=== PATIENT | female | born 1950 | race Two or more races ===

== ENCOUNTER 2024-10-21 08:00 | Day surgery (SDC) | payer MEDICARE, SELFPAY ==
[2024-10-18 13:11] VITALS: BMI 41.8
[2024-10-21] VITALS (16 sets, daily range): BP systolic 150–200; BP diastolic 65–94; PULSE 78–93; RESP 12–18; TEMP 36.1–36.6; O2SAT 96–99; BMI 39.0
[2024-10-21] MEDS: MIDAZOLAM INJ 1 MG/ML VIAL 2 ML (ASD USE ONLY) 2 MG IV (11:45)
[2024-10-21] MEDS: fentaNYL CIT INJ 50 mCg/ML AMP 2ML (ASD USE ONLY) IV (11:45)
[2024-10-21] MEDS: Vancomycin Inj 1,000 MG in SODIUM CHLORIDE 0.9% 250 ML 250 ML 150 MG IV (11:45)
[2024-10-21] MEDS: DiphenhydrAMINE INJ 50 MG/ML VIAL 25 MG IV (11:46)
[2024-10-21] MEDS: SODIUM CHLORIDE 0.9% 500 ML 500 ML 20 ML IV (11:53)
== END 2024-10-21 12:49 | disposition home or self-care (01) ==
PROVIDERS: PCP Specialist; Referring Provider Specialist; Visit Provider Specialist
PROC: 0DBE8ZX Excision of Large Intestine, Via Natural or Artificial Opening Endoscopic, Diagnostic (ICD-10-PCS; CPT 45380; principal; 2024-10-21 09:30)
PROC: (CPT 43239; 2024-10-21 09:30)
DX: K64.9 Unspecified hemorrhoids (principal); K57.31 Diverticulosis of large intestine without perforation or abscess with bleeding
CPT/HCPCS: 45378; A4649; J1200; J2250; J3010; J3371; J7040; J7050

== ENCOUNTER 2024-11-30 02:30 | Inpatient (IN) | payer MEDICARE, SELFPAY ==
[2024-11-30] VITALS (14 sets, daily range): BP systolic 133–196; BP diastolic 60–85; PULSE 75–102; RESP 11–96; TEMP 36.4–36.9; O2SAT 95–99; BMI 41.0; BMI 37.5
--- NOTE | 2024-11-30 02:42 | PD.EDABDPN ---
ED Abdominal Pain RME/HPI General Chief Complaint: Abdominal Pain Stated complaint: GI BLEED Time seen by provider: 11/30/24 02:44 Arrival date/time: 11/30/24 02:30 RME / HPI RME / HPI narrative: Dr. Johnston?s Main ED Evaluation: 74yo female with a history of DM, HLD, cirrhosis, CAD s/p stent placement CRISTINA from [facility] presents to the ED after being transferred here for a higher [id number]. Patient endorses she was having N/V and dizziness. She reports she started having dark stools this morning. Denies any abdominal pain. Earlier tonight, I received a call from Dr. Ndiaye stating that this is his patient and is wanting to do an endoscopy in the morning. No other complaints reported. Related Data Home Medications ?Medication ?Instructions ?Recorded ?Confirmed aspirin 81 mg tablet,delayed 81 mg PO QDAY 10/21/24 10/21/24 release furosemide 20 mg tablet (Lasix) 20 mg PO QAM 10/21/24 10/21/24 insulin glargine 100 unit/mL (3 65 unit subcut HS 10/21/24 10/21/24 mL) subcutaneous pen (Lantus Solostar U-100 Insulin) isosorbide mononitrate 30 mg 30 mg PO QDAY 10/21/24 10/21/24 tablet,extended release 24 hr losartan 50 mg tablet 50 mg PO QDAY 10/21/24 10/21/24 metformin 500 mg tablet 500 mg PO BID 10/21/24 10/21/24 metoclopramide HCl 5 mg tablet 5 mg PO HS 10/21/24 10/21/24 multivitamin (Daily Multi-Vitamin 1 tab PO QAM 10/21/24 10/21/24 tablet) omeprazole 40 mg capsule,delayed 40 mg PO QDAY 10/21/24 10/21/24 release potassium 20 mg chewable tablet 10 mg PO QDAY 10/21/24 10/21/24 simvastatin 40 mg tablet 40 mg PO HS 10/21/24 10/21/24 Allergies Allergy/AdvReac Type Severity Reaction Status Date / Time amoxicillin Allergy Mild Rash Verified 11/30/24 02:37 ibuprofen (From Advil) Allergy Mild Rash Verified 11/30/24 02:37 naproxen (From Aleve) Allergy Mild Rash Verified 11/30/24 02:37 Penicillins Allergy Mild Rash Verified 11/30/24 02:37 Sulfa (Sulfonamide Allergy Mild Rash Verified 11/30/24 02:37 Antibiotics) Review of Systems Review of Systems Systems Reviewed: All systems reviewed, normal except as documented Past Medical History Past Medical History NEUROLOGIC: Negative Neurological Disorders or Seizures CARDIAC: Positive Cardiac Disorders and Hypercholesterolemia; Negative Congestive Heart Failure RESPIRATORY: Negative Chronic Obstructive Pulmonary Disease (COPD) GASTROINTESTINAL: Positive Gastrointestinal Disorders and Cirrhosis (vs fatty liver) GENITOURINARY: Negative Genitourinary Disorders or Renal Disease MUSCULOSKELETAL: Negative Musculoskeletal Disorders ENDOCRINE: Positive Endocrine Disorders and Diabetes Mellitus Type 2; Negative Diabetes Mellitus Type 1 HEMATOLOGIC: Positive Blood Disorders and Anemia OTHER HISTORY: Negative Blood Transfusions, Blood Transfusion Reaction, Anesthesia Reactions or Cancer Surgical History SURGICAL: Positive Valve Replacement (tissue), Coronary Stent, Ear Surgery and Eye Surgery Social History SMOKING STATUS: Never smoker ED Exam Narrative Physical exam: GENERAL APPEARANCE: alert and oriented x 4, well-developed, well-nourished, no acute distress VITALS: All vitals were reviewed and the pulse ox is % on room air, which is normal according to my interpretation. HEENT: Normocephalic, atraumatic; pupils equal, round, reactive to light; EOMI; mucous membranes pink, moist; oropharynx clear NECK: Supple LUNGS: CTABL; no wheezes, no rales, no rhonchi HEART: Regular rate, regular rhythm; normal S1, S2; no murmurs ABDOMEN: non distended; normal BS; soft, no tenderness, no guarding, no rebound; no masses, no organomegaly, no hernia BACK: no CVA tenderness EXTREMITIES: atraumatic; no edema NEUROLOGIC: awake; alert and oriented x4; cranial nerves II-XII grossly intact; no focal sensory or motor deficits PSYCHIATRIC: appropriate mood and affect SKIN: warm, dry, normal color; no rashes Course Quality Measures none Orders Category Date Time Status Mobile Paramedical Examiner STAT Care 11/30/24 02:44 Active Continuous Pulse Oximetry STAT Care 11/30/24 02:44 Completed EKG (ED ONLY) *Do not use* NOW Care 11/30/24 02:49 Completed Insert IV STAT Care 11/30/24 02:44 Active NPO STAT Care 11/30/24 02:48 Active Orthostatic Vitals NOW Care 11/30/24 02:48 Active EKG (ED Only) Stat Exams 11/30/24 02:49 Draft Ammonia Stat Lab 11/30/24 03:09 Completed Arterial Blood Gas Stat Lab 11/30/24 05:29 Completed CBC Stat Lab 11/30/24 03:09 Completed Comprehensive Metabolic Panel Stat Lab 11/30/24 03:09 Completed Magnesium Stat Lab 11/30/24 03:09 Completed Partial Thromboplastin Time Stat Lab 11/30/24 03:09 Completed Prothrombin Time with INR Stat Lab 11/30/24 03:09 Completed Troponin I Stat Lab 11/30/24 03:09 Completed Pantoprazole/Ns 80Mg IV Premix [Protonix/NS 80mg IV Med 11/30/24 02:45 Discontinued Premix] 80 mg in 100 ml IV X1 Sodium Chloride 0.9% [Ns] 100 ml Med 11/30/24 02:44 Active Octreotide Acet Inj [SandoSTATIN Inj] 1,000 mcg IV 50 mcg/hr Vital Signs Vital signs: Vital Signs Temperature 98.4 F 11/30/24 02:37 Pulse Rate 101 H 11/30/24 02:37 Respiratory Rate 16 11/30/24 02:37 Blood Pressure 174/85 H 11/30/24 02:37 Pulse Oximetry (%) 98 11/30/24 02:37 Oxygen Delivery Method Room Air 11/30/24 02:37 Abdominal Pain MDM MDM Narrative MDM Narrative:: Scribe Attestation: 11/30/24 - Emilia Thrasher am scribing for and in the presence of Dr. Johnston. At 2340, I received a call from Dr. Ndiaye, our GI, who states he accepted the patient for transfer and will be pending endoscopy in the morning. States the patient has a history of TVD and cardiac stents on Plavix. Reports the patient is having coffee-ground emesis and black stools. Requests starting Protonix and Octreotide drips when the patient arrives to our facility. Review of the patient's medical records from today at [facility] show: HnH of 9.6/28.5, Platelets of 116, Bicarb of 19, Anion Gap of 18, elevated BUN/creatinine ratio. CT abdomen pelvis showed cirrhotic liver, portal venous hypertension, and varices. EKG done at 2003, NSR, rate of 87, left axis deviation, ST depression in lead I and avL, Q waves in V1-V3, no acute ischemia according to my interpretation. Patient data External records reviewed:: [facility] previous records (Per chart review, patient has no previous ED visits or admissions to this facility.) and Other (specify) (Reviewed records that were sent over from [facility].) Clinical information provided by:: patient Social determinants that could affect healthcare access:: none Patient has the following chronic illnesses:: DM, CAD s/p stent placement, HLD, cirrhosis How is presenting disease/condition affected by chronic disease/condition?: caused by Evaluation data The following diagnostics were reviewed and interpreted by me:: lab results and EKG tracing(s) Lab and/or radiology exams considered but not ordered:: none Interpretation Summary: WBC count is normal, HnH is 8.6/26.3, Platelets are 100, ABG is normal, AST and Alkaline Phosphatase are elevated, Ammonia is 81, Troponin is normal, according to my interpretation. EKG done at 0304, NSR, rate of 80, left axis deviation, no ectopy, Q waves in V1 and V2, inverted T-wave in avL, no STEMI, according to my interpretation. Medications / Prescriptions Medications or Prescriptions considered but not ordered:: none Medication administrations:: Medication Administration History Octreotide Acetate 1,000 mcg/ (Sodium Chloride) 102 mls @ 5.1 mls/hr IV .Q20H ONE; Protocol Stop: 11/30/24 22:43 Last Admin: 11/30/24 03:45 Dose: 50 mcg/hr, 5.1 mls/hr Documented By: CONSTANTINO Discontinued Medications Pantoprazole Sodium (Protonix/Ns 80mg Iv Premix) 80 mg in 100 mls @ 400 mls/hr IV X1 ONE Stop: 11/30/24 02:59 Last Infusion: 11/30/24 04:00 Dose: Infused Documented By: Admin: 11/30/24 03:45 Dose: 400 mls/hr Documented By: CONSTANTINO see above Consultations Consultation(s) initiated? (list below): No Diagnosis Differential diagnosis abdominal pain: other (upper GI bleed, lower GI bleed, melena, anemia, dehydration, electrolyte abnormality) Most likely diagnosis given after review of the tests above:: see clinical impression below Admission Indicated Admission indicated?: not indicated Admission Request Was there a request for admission?: No Disposition Plan Disposition Plan: other (specify) (Signed out to Dr. Carballo at [address] Ndiaye.) Discharge Plan Prescriptions/Referrals Prescriptions/Med Rec: No Action metformin 500 mg tablet 500 mg PO BID Patient Comments: TAKE 1 TABLET BY MOUTH TWICE A DAY metoclopramide HCl 5 mg tablet 5 mg PO HS Patient Comments: TAKE 1 TABLET BY MOUTH BEFORE MEALS AND AT BEDTIME insulin glargine [Lantus Solostar U-100 Insulin] 100 unit/mL (3 mL) insulin pen 65 unit SUBCUT HS Patient Comments: INJECT 65 UNITS SUBCUTANEOUSLY IN THE MORNING AND 55 UNITS SUBCUTANEOUSLY AT BEDTIME simvastatin 40 mg tablet 40 mg PO HS Patient Comments: TAKE 1 TABLET BY MOUTH EVERY DAY omeprazole 40 mg capsule,delayed release(DR/EC) 40 mg PO QDAY Patient Comments: TAKE 1 CAPSULE BY MOUTH EVERY DAY isosorbide mononitrate 30 mg tablet extended release 24 hr 30 mg PO QDAY multivitamin [Daily Multi-Vitamin] Tablet 1 tab PO QAM furosemide [Lasix] 20 mg tablet 20 mg PO QAM potassium 20 mg tablet,chewable 10 mg PO QDAY losartan 50 mg tablet 50 mg PO QDAY Patient Comments: TAKE 1 TABLET BY MOUTH EVERY DAY FOR 90 DAYS aspirin 81 mg tablet,delayed release (DR/EC) 81 mg PO QDAY Patient Comments: TAKE 1 TABLET BY MOUTH EVERY DAY FOR 90 DAYS Referrals: No Primary/Family,Physician [Primary Care Provider] - In 1 week Problem List Clinical Impression: GI bleed Patient/Caregiver Discharge Instructions Print Language: Kuwaiti
--- NOTE | 2024-11-30 02:49 | EKG_ITS ---
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
[2024-11-30 03:23] LABS: Basophils % (Auto) 0 % (0-2.5); Eosinophils % (Auto) 0 % (0-10); Hematocrit 26.3 % (36.0-46.0); Immature Granulocytes % (Auto) 0 % (0-0); Immature Granulocytes Auto 0.02 Thou/mm3 (0.00-0.00); Lymphocytes # (Auto) 0.9 Thou/mm3 (1.0-4.8); Lymphocytes % (Auto) 12 % (10-50); Mean Corpuscular HGB Conc 32.7 g/dl (31.0-37.0); Mean Corpuscular Hemoglobin 26.1 pg (25.0-35.0); Mean Corpuscular Volume 80 fL (80-100); Monocytes # (Auto) 0.9 Thou/mm3 (0.0-0.8); Monocytes % (Auto) 12 % (0-12); Neutrophils # (Auto) 5.6 Thou/mm3 (1.8-7.7); Neutrophils % (Auto) 75 % (37-80); Nucleated Red Blood Cell % 0 /100 WBC (0); Platelet Count 100 Thou/mm3 (140-440); RDW Standard Deviation 53.9 fL (36.4-46.3); White Blood Count 7.4 Thou/mm3 (3.6-11.0)
[2024-11-30 03:26] LABS: Hemoglobin 8.6 g/dL (12.0-16.0)
[2024-11-30 03:39] LABS: INR 1.2 (0.9-1.3); Partial Thromboplastin Time 25.1 Seconds (22.0-36.0); Prothrombin Time 13.3 Seconds (9.0-12.2)
[2024-11-30 03:44] LABS: Alanine Aminotransferase 33 U/L (10-49); Albumin, Serum 3.6 gm/dL (3.4-4.8); Albumin/Globulin Ratio 1.1 (1.2-2.2); Alkaline Phosphatase 128 U/L (46-116); Anion Gap 11 (7-16); Aspartate Amino Transferase 47 U/L (0-34); BUN/Creatinine Ratio 24 Ratio (12-20); Bilirubin,Total 0.7 mg/dL (0.3-1.2); Blood Urea Nitrogen 17 mg/dL (9-23); Calcium 8.8 mg/dL (8.3-10.6); Calcium (Corrected) 9.1 mg/dL (8.5-10.1); Carbon Dioxide 23.4 mMol/L (20.0-31.0); Chloride 108 mMol/L (98-107); Creatinine (Component) 0.7 mg/dL (0.6-1.3); Globulin 3.3 gm/dL (2.3-3.5); Glucose 91 mg/dL (74-106); Magnesium 1.6 mg/dL (1.6-2.6); Osmolality,Calculated 284 (275-295); Potassium 3.9 mMol/L (3.4-5.1); Sodium 142 mMol/L (136-145); Total Protein 6.9 gm/dL (5.7-8.2); Troponin I < 0.020 ng/mL (0.0-0.045); eGFR > 60 See Note
[2024-11-30] MEDS: PANTOPRAZOLE/NS 80MG IV PREMIX 80 MG/100 ML BAG 400 MG IV (03:45)
[2024-11-30] MEDS: OCTREOTIDE ACET INJ 1,000 MCG in SODIUM CHLORIDE 0.9% 100 ML 5.1 MCG IV ×2 (03:45→20:35)
[2024-11-30 03:53] LABS: Ammonia 81 uMol/L (11-32)
[2024-11-30 05:54] LABS: Base Excess -1 (-3-3); HCO3 23 mEq/L (20-26); Inspired Oxygen, FIO2 21 %; O2 Saturation 97 % (91-98); PCO2 34 mmHg (32.0-48.0); PO2 94 mmHg (83-108); pH, Arterial 7.43 (7.35-7.45)
[2024-11-30 05:56] LABS: Allen Test Performed/OK; Puncture Site Right Radial
--- NOTE | 2024-11-30 06:11 | PC.NURSE ---
assisted pt up to BR around 0500, otherwise pt has been asleep.
--- NOTE | 2024-11-30 06:19 | PD.EDADDENDU ---
Emergency Room Addendum Addendum Narrative: 0600: Care assumed from Dr. Johnston (emergency physician). Past medical, surgical, social and family history reviewed. Vitals and home medications reviewed. Results and treatment plan discussed. I will assume the care of the patient at this time and will follow the patient, pending evaluation by Dr. Ndiaye. 1004: Dr. Ndiaye (GI) made aware of the patient?s HPI, PMHx, lab and/or radiology results. Discussed treatment plan. Will consult an admission to the hospitalist. 1126: Spoke with Admission Resident working with Dr. Carrasquillo, made aware of the patient?s HPI, PMHx, lab and/or radiology results. Treatment plan was discussed. Will admit for further evaluation and management. Accepts patient for admission.
--- NOTE | 2024-11-30 13:08 | ESHP_ITS ---
<Statement entered by Jovany Salguero MD - 12/01/24 10:56> I discussed with and supervised the graphic design intern physician involved in the care of this patient. Patient assessment and plan was discussed with entire medicine team, including my attending. I agree with the assessment and plan as documented by graphic design intern doctor. Patient care was discussed with my attending physician Dr. Foreign Salguero, PGY-2 Documentation for date of: 11/30/24 HPI History of Present Illness Chief complaint: dark stool History of present illness: Nano Chong is 74 yr female with PMH of insulin-dependent type 2 diabetes, hyperlipidemia, cirrhosis, grade III esophageal varicies, CAD s/p stents who BIBA from [facility] presents to the ED after being transferred here for a higher [id number]. Per daughter at bedside, patient has been experiencing vomiting since past few days. Had about 2-3 episodes with no blood that occurred after meals. There has been no significant change in diet, endorses good appetite still, no diarrhea. She was started on Ozempic 3 weeks ago. Last dose was on Monday and has since then been held by the daughter. Daughter endorses approximately 2 bowel movements that were dark in color. She had undergone EGD and colonoscopy on October [address] Ndiaye. Findings consistent with hemorrhoids which were ligated. Patient had CT abdomen pelvis done at [facility]. Findings positive for cirrhotic liver, prominent spleen, portal venous HTN ith some vascular shunting/varicies, multiple small calcified gallstones. CT head was also negative. In ED, vitals stable, Hb 8.6, potassium 3.9, Cr 0.7, NH4 81. Dr. Ndiaye was consulted. Said to admit patient for EGD. She was given pantoprazole 80mg x1, octreotide 1g x1. Patient will be admitted for repeat EGD as follow up for GI bleed s/p banding. PMH: as above PSH: CAD stents FamHx: no cancers, father side positive for HTN and DM. Social: lives at home with daughter. No smoking, no drinking. Able to complete ADLs. Meds: Aspirin 81 mg daily, atorvastatin 20 mg daily, clopidogrel 75 mg daily, furosemide 20 mg daily, 65 units glargine at bedtime, 30 mg isosorbide daily, losartan 50 mg daily, metformin 500 twice daily, omeprazole 40 mg daily. Allergies: Amoxicillin, ibuprofen, naproxen, sulfa cause rash Review of Systems Constitutional Constitutional: Reports system reviewed and no additional complaints, except as documented Exam Vital Signs Temp Pulse Resp BP Pulse Ox O2 Del Method 98.0 F 83 16 146/60 H 97 Room Air 11/30/24 11:32 11/30/24 11:32 11/30/24 11:32 11/30/24 11:32 11/30/24 11:32 11/30/24 11:32 Narrative Exam General: Elderly female, obese, No acute distress, cooperative, lethargic HEENT: NCAT, No JVD noted. Mucosa moist. Pupils are equal and reactive to light bilaterally Cardiovascular: Normal S1 and S2. Regular rate and rhythm. Respiratory: Lungs are clear to auscultation bilaterally. No wheezing or crackles heard. Abdomen: Soft,RLQ tender to deep palpation, not distended, normal bowel sounds. Skin: Warm to touch, dry, no rashes noted Musculoskeletal: No gross injuries. Able to move all 4 extremities. No pitting edema, b/l varicose veins Neuro: Alert and oriented x3. No focal neuro deficits. Psych: Normal affect and mood Results: Labs 11/30/24 03:09 11/30/24 03:09 Labs: Short CBC 11/30/24 Range/Units 03:09 WBC 7.4 (3.6-11.0) Thou/mm3 Hgb 8.6 L (12.0-16.0) g/dL Hct 26.3 L (36.0-46.0) % Plt Count 100 L (140-440) Thou/mm3 BMP 11/30/24 03:09 Sodium 142 Potassium 3.9 Chloride 108 H Carbon Dioxide 23.4 BUN 17 Creatinine 0.7 Glucose 91 Calcium 8.8 Cardiac Enzymes 11/30/24 Range/Units 03:09 Troponin I < 0.020 (0.0-0.045) ng/mL Liver Function 11/30/24 Range/Units 03:09 Total Bilirubin 0.7 (0.3-1.2) mg/dL AST 47 H (0-34) U/L ALT 33 (10-49) U/L Alkaline Phosphatase 128 H (46-116) U/L Albumin 3.6 (3.4-4.8) gm/dL ABG Interpretation ABG results: 11/30/24 05:29 ABG pH 7.43 ABG pCO2 34 ABG pO2 94 ABG HCO3 23 ABG O2 Saturation 97 ABG Base Excess -1 Quality Measures Quality Measures none Advance care planning discussed with:: child Medications Home Medications and Allergies Home Medications ?Medication ?Instructions ?Recorded ?Confirmed ?Type aspirin 81 mg tablet,delayed 81 mg PO QDAY 10/21/24 History release furosemide 20 mg tablet (Lasix) 20 mg PO QAM 10/21/24 11/30/24 History insulin glargine 100 unit/mL (3 65 unit subcut HS 10/0511/30/24 History mL) subcutaneous pen (Lantus Solostar U-100 Insulin) isosorbide mononitrate 30 mg 30 mg PO QDAY 10/21/24 History tablet,extended release 24 hr losartan 50 mg tablet 50 mg PO QDAY 10/21/2411/30 History metformin 500 mg tablet 500 mg PO BID 10/21/2411/30 History metoclopramide HCl 5 mg tablet 5 mg PO HS 10/21/24 History multivitamin (Daily Multi-Vitamin 1 tab PO QAM 5 11/30/24 History tablet) omeprazole 40 mg capsule,delayed 40 mg PO QDAY 5 11/30/24 History release potassium 20 mg chewable tablet 10 mg PO QDAY 10/21/24 11/30/24 History simvastatin 40 mg tablet 20 mg PO HS 10/21/24 5 History atorvastatin 40 mg tablet 20 mg PO QDAY 11/30/2411/30 History clopidogrel 75 mg tablet 75 mg PO QDAY 11/30/2411/30 History potassium chloride 10 mEq 10 meq PO QDAY 11/30/2411/06 History tablet,extended release Allergies Allergy/AdvReac Type Severity Reaction Status Date / Time amoxicillin Allergy Mild Rash Verified 11/30/24 02:37 ibuprofen (From Advil) Allergy Mild Rash Verified 11/30/24 02:37 naproxen (From Aleve) Allergy Mild Rash Verified 11/30/24 02:37 Penicillins Allergy Mild Rash Verified 11/30/24 02:37 Sulfa (Sulfonamide Allergy Mild Rash Verified 11/30/24 02:37 Antibiotics) Visit Medications Acetaminophen (Acetaminophen 325 Mg Tablet) 650 mg PO Q6H PRN PRN Reason: Fever >100.3 or pain Stop: 12/30/24 12:54 Atorvastatin Calcium (Atorvastatin Calcium 20 Mg Tablet) 20 mg PO QDAY BRY Stop: 12/30/24 13:14 Dextrose (Dextrose 50%-Water Inj 50 Ml Syringe) 25 ml IV Q15MIN PRN PRN Reason: BG 50-70 responsive npo pt Stop: 12/30/24 12:54 Dextrose (Dextrose 50%-Water Inj 50 Ml Syringe) 50 ml IV Q15MIN PRN PRN Reason: BG <50 OR BG <70 & pt unresponsive Stop: 12/30/24 12:54 Furosemide (Furosemide 20 Mg Tablet) 20 mg PO QAM BRY Stop: 12/30/24 13:14 Glucagon (Glucagon Inj 1 Mg Vial) 1 mg IM Q15MIN PRN PRN Reason: BG <70, and no IV access Octreotide Acetate 1,000 mcg/ (Sodium Chloride) 102 mls @ 5.1 mls/hr IV .Q20H ONE; Protocol Stop: 11/30/24 22:43 Last Admin: 11/30/24 03:45 Dose: 50 mcg/hr, 5.1 mls/hr Octreotide Acetate 1,000 mcg/ (Sodium Chloride) 102 mls @ 5.1 mls/hr IV .Q20H BRY; Protocol Stop: 12/04/24 13:03 Insulin Human Lispro (Insulin Lispro (Admelog) 1 Unit/0.01 Ml Unit) 0 unit SC Q6HR BRY; Protocol Stop: 12/30/24 12:59 Isosorbide Mononitrate (Isosorbide Er Mononitrate 30 Mg Tabcr) 30 mg PO QDAY BRY Stop: 12/30/24 13:14 Losartan Potassium (Losartan Potassium 25 Mg Tablet) 50 mg PO QDAY BRY Stop: 12/30/24 13:14 Ondansetron HCl (Ondansetron Inj 2 Mg/Ml Inj 2 Ml) 4 mg IV Q6H PRN; Protocol PRN Reason: NAUSEA OR VOMITING Stop: 12/30/24 12:54 Pantoprazole Sodium (Pantoprazole Inj 40 Mg Vial) 40 mg IVP Q12HR BRY Stop: 12/30/24 20:59 Sennosides (Senna Tablet) 1 tab PO QDAY PRN; Protocol PRN Reason: constipation Stop: 12/30/24 12:54 Discontinued Medications Pantoprazole Sodium (Protonix/Ns 80mg Iv Premix) 80 mg in 100 mls @ 400 mls/hr IV X1 ONE Stop: 11/30/24 02:59 Last Infusion: 11/30/24 04:00 Dose: Infused Assessment & Plan Plan Nano Chong is 74 yr female with PMH of insulin-dependent type 2 diabetes, hyperlipidemia, cirrhosis, CAD s/p stents who BIBA from [facility] presents to the ED after being transferred here for a higher [id number]. Per daughter at bedside, patient has been experiencing vomiting since past few days. Daughter endorses approximately 2 bowel movements that were dark in color. Patient will be admitted for repeat EGD as follow up for GI bleed s/p banding. #GI bleed #Grade III varicies s/p band ligation #Hemorrhoids #Hx cirrhosis Patient is having 1-2 episodes of melena and vomiting. FOBT + in [place]. She had band ligation 10/21/24 after EGD showed grade III varicies. Patient was to follow up with Dr. Nidaye in [address] a/p done at [facility]: probable cirrhotic liver, prominent spleen, portal venous HTN with some vascular shunting/varicies, multiple small calcified gallstones. Hb 8.6 on admission, MCV 80. -Dr. Ndiaye consulted, appreciate recs -NPO -Pantoprazole 40 mg BID - Hold NSAIDs, antiplatelets -octreotide infusion for 5 days (11/30-12/04) -daily CBC -transfuse if Hb >7 #History of insulin dependent type 2 diabetes On admission initial glucose 91. Last A1c not on file. Patient takes 65 units glargine at bedtime, metformin 500 twice daily for diabetes at home. -Held home medications -Bedside blood glucose checks q6hr due to NPO -Insulin lispro sliding scale -Carb consistent low diet -A1c pending #Hx CAD s/p stents #Hx HTN #Hx HLD - Atorvastatin 20 mg daily ?20 mg daily ? Isosorbide mononitrate 30 mg daily ? Losartan 50 mg daily ? Holding aspirin and Plavix in setting of acute bleed Health maintenance: Dispo: med surg, EGD FEN: NPO DVT prophylaxis: SCDs CODE STATUS: Full code The patient's management plan was discussed with my attending physician Dr. Carrasquillo. Nazia Tapia, PGY-1 Attending Provider Attestation/Addendum 74-year-old female with coronary artery disease, liver cirrhosis, esophageal varices with recent banding. Patient was transferred from [facility] for consultation with Dr. Ndiaye. Currently stable vital signs. Hemoglobin above 8. Will continue to monitor for recurrent GI bleed. Discussed with housestaff
[2024-11-30] MEDS: DEXTROSE 50%-WATER INJ 50 ML SYRINGE 25 ML IV ×2 (13:42→18:09)
[2024-11-30] MEDS: ISOSORBIDE ER MONONITRATE 30 MG TABCR PO (13:46)
[2024-11-30] MEDS: LOSARTAN POTASSIUM 25 MG TABLET 50 MG PO (13:46)
[2024-11-30] MEDS: ATORVASTATIN CALCIUM 20 MG TABLET PO (13:46)
[2024-11-30] MEDS: Furosemide 20 MG TABLET PO (13:46)
--- NOTE | 2024-11-30 16:18 | PD.IMCONS ---
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 and she is not drinking at the moment for the last few months She is also status post PTCA and currently on Plavix I got a call from the family spoke to the ER physician as they have no GI coverage and accepted the patient in transfer to our emergency room here for further evaluation and management CT scan of the abdomen pelvis done in the emergency room at [place] showed portosystemic collaterals and no other findings except cirrhotic liver disease cc:: cc: Deon Carrasquillo MD Review of Systems Review of Systems Systems Reviewed: All systems reviewed, normal except as documented Past Medical History Surgical History OTHER SURGICAL HX: Coronary artery disease status post PTCA Diabetes mellitus type 1 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 3 Meds Home Medications and Allergies Home Medications ?Medication ?Instructions ?Recorded ?Confirmed ?Type aspirin 81 mg tablet,delayed 81 mg PO QDAY 10/21/24 11/30/24 History release furosemide 20 mg tablet (Lasix) 20 mg PO QAM 10/21/24 11/30/24 History insulin glargine 100 unit/mL (3 65 unit subcut HS 10/21/24 11/30/24 History mL) subcutaneous pen (Lantus Solostar U-100 Insulin) isosorbide mononitrate 30 mg 30 mg PO QDAY 10/21/24 11/30/24 History tablet,extended release 24 hr losartan 50 mg tablet 50 mg PO QDAY 10/21/24 11/30/24 History metformin 500 mg tablet 500 mg PO BID 10/21/24 11/30/24 History metoclopramide HCl 5 mg tablet 5 mg PO HS 10/21/24 11/30/24 History multivitamin (Daily Multi-Vitamin 1 tab PO QAM 10/21/24 11/30/24 History tablet) omeprazole 40 mg capsule,delayed 40 mg PO QDAY 10/21/24 11/30/24 History release potassium 20 mg chewable tablet 10 mg PO QDAY 10/21/24 11/30/24 History simvastatin 40 mg tablet 20 mg PO HS 10/21/24 11/30/24 History atorvastatin 40 mg tablet 20 mg PO QDAY 11/30/24 11/30/24 History clopidogrel 75 mg tablet 75 mg PO QDAY 11/30/24 11/30/24 History potassium chloride 10 mEq 10 meq PO QDAY 11/30/24 11/30/24 History tablet,extended release Allergies Allergy/AdvReac Type Severity Reaction Status Date / Time amoxicillin Allergy Mild Rash Verified 11/30/24 02:37 ibuprofen (From Advil) Allergy Mild Rash Verified 11/30/24 02:37 naproxen (From Aleve) Allergy Mild Rash Verified 11/30/24 02:37 Penicillins Allergy Mild Rash Verified 11/30/24 02:37 Sulfa (Sulfonamide Allergy Mild Rash Verified 11/30/24 02:37 Antibiotics) Exam Vital Signs Temp Pulse Resp BP Pulse Ox O2 Del Method 97.9 F 76 18 145/73 H 96 Room Air 11/30/24 14:58 11/30/24 15:33 11/30/24 15:33 11/30/24 14:58 11/30/24 14:58 11/30/24 14:58 Constitutional Comments: Chronically ill-appearing patient Routine Respiratory Exam Comments: Normal to auscultation Routine Abdominal Exam Comments: Soft nontender Results Labs 11/30/24 03:09 11/30/24 03:09 Labs: Short CBC 11/30/24 Range/Units 03:09 WBC 7.4 (3.6-11.0) Thou/mm3 Hgb 8.6 L (12.0-16.0) g/dL Hct 26.3 L (36.0-46.0) % Plt Count 100 L (140-440) Thou/mm3 [facility] 11/30/24 03:09 Sodium 142 Potassium 3.9 Chloride 108 H Carbon Dioxide 23.4 BUN 17 Creatinine 0.7 Glucose 91 Calcium 8.8 Cardiac Enzymes 11/30/24 Range/Units 03:09 Troponin I < 0.020 (0.0-0.045) ng/mL Liver Function 11/30/24 Range/Units 03:09 Total Bilirubin 0.7 (0.3-1.2) mg/dL AST 47 H (0-34) U/L ALT 33 (10-49) U/L Alkaline Phosphatase 128 H (46-116) U/L Albumin 3.6 (3.4-4.8) gm/dL ABG Interpretation ABG results: 11/30/24 05:29 ABG pH 7.43 ABG pCO2 34 ABG pO2 94 ABG HCO3 23 ABG O2 Saturation 97 ABG Base Excess -1 Assessment and Plan Additional Assessment & Plan Additional Plan: # Acute GI bleed with melena # Acute posthemorrhagic anemia # Chronic liver disease secondary to alcohol with advanced portal hypertension workup systemic collaterals and splenomegaly with history of previous band ligation of esophageal varices on 10/21/2024 # Diabetes mellitus type 1 # Essential hypertension # Coronary artery disease status post PTCA # Hyperlipidemia Plan Clear liquid diet N.p.o. midnight tonight Consent obtained for fiberoptic esophagogastroduodenoscopy with possible therapeutic intervention possible biopsy under intravenous moderate sedation serial CBC octreotide 50 mcg IV push and then 50 mcg/h continuous infusion Protonix IV thank you very much for the opportunity to participate in the care of this patient
[2024-11-30] MEDS: PANTOPRAZOLE INJ 40 MG VIAL IVP (20:34)
[2024-12-01] VITALS (19 sets, daily range): BP systolic 130–189; BP diastolic 61–132; PULSE 73–102; RESP 13–20; TEMP 36.1–37.2; O2SAT 93–100
[2024-12-01 06:09] LABS: Glucose Estimated Average 117 mg/dL (80-131); Hemoglobin A1C 5.7 % Hgb (4.8-6.0)
[2024-12-01 06:24] LABS: Alanine Aminotransferase 32 U/L (10-49); Albumin, Serum 3.3 gm/dL (3.4-4.8); Albumin/Globulin Ratio 1.1 (1.2-2.2); Alkaline Phosphatase 109 U/L (46-116); Anion Gap 10 (7-16); Aspartate Amino Transferase 56 U/L (0-34); BUN/Creatinine Ratio 21 Ratio (12-20); Bilirubin,Total 0.8 mg/dL (0.3-1.2); Blood Urea Nitrogen 15 mg/dL (9-23); Calcium 8.6 mg/dL (8.3-10.6); Calcium (Corrected) 9.2 mg/dL (8.5-10.1); Chloride 105 mMol/L (98-107); Creatinine (Component) 0.7 mg/dL (0.6-1.3); Estimated Creatinine Clearance 70.2 mL/min (>60); Glucose 67 mg/dL (74-106); Magnesium 1.8 mg/dL (1.6-2.6); Osmolality,Calculated 280 (275-295); Phosphorous 4.5 mg/dL (2.4-5.1); Potassium 3.4 mMol/L (3.4-5.1); Sodium 141 mMol/L (136-145); Total Protein 6.3 gm/dL (5.7-8.2); eGFR > 60 See Note
[2024-12-01 07:18] LABS: Basophils % (Auto) 0 % (0-2.5); Eosinophils # (Auto) 0.2 Thou/mm3 (0.0-0.5); Eosinophils % (Auto) 4 % (0-10); Hematocrit 23.6 % (36.0-46.0); Immature Granulocytes % (Auto) 1 % (0-0); Immature Granulocytes Auto 0.06 Thou/mm3 (0.00-0.00); Lymphocytes % (Auto) 19 % (10-50); Mean Corpuscular HGB Conc 33.9 g/dl (31.0-37.0); Mean Corpuscular Hemoglobin 26.2 pg (25.0-35.0); Mean Corpuscular Volume 77 fL (80-100); Monocytes # (Auto) 0.8 Thou/mm3 (0.0-0.8); Monocytes % (Auto) 15 % (0-12); Neutrophils # (Auto) 3.3 Thou/mm3 (1.8-7.7); Neutrophils % (Auto) 60 % (37-80); Nucleated Red Blood Cell % 0 /100 WBC (0); Platelet Count 86 Thou/mm3 (140-440); RDW Standard Deviation 53.5 fL (36.4-46.3); Red Blood Count 3.05 Miln/mm3 (4.00-5.20); White Blood Count 5.4 Thou/mm3 (3.6-11.0)
--- NOTE | 2024-12-01 07:47 | PC.NURSE ---
pt's blood sugar 74, Dr. Camp was made aware. okay to give plain water with sugar or plain juice per Dr. Camp.
[2024-12-01] MEDS: LOSARTAN POTASSIUM 25 MG TABLET 50 MG PO (08:36)
[2024-12-01] MEDS: ISOSORBIDE ER MONONITRATE 30 MG TABCR PO (08:37)
[2024-12-01] MEDS: Furosemide 20 MG TABLET PO (08:37)
[2024-12-01] MEDS: PANTOPRAZOLE INJ 40 MG VIAL IVP ×2 (08:37→23:37)
[2024-12-01] MEDS: SODIUM CHLORIDE 0.9% 1000 ML 1,000 ML 80 ML IV (09:31)
--- NOTE | 2024-12-01 12:09 | ESPR_ITS ---
Documentation for date of: 12/01/24 Subjective Subjective Interval history: Patient examined at bedside. No major events overnight. No complaints. Vitals are stable, Hb 8.0, platelets downtrending to 86. Patient is NPO for EGD today as follow up for GI bleed. Will continue octreotide drip, pantoprazole 40 mg BID. Exam Vital Signs Temp Pulse Resp BP Pulse Ox O2 Del Method 97.4 F 83 18 130/73 98 Room Air 12/01/24 12:00 12/01/24 12:00 12/01/24 12:12/01/24 12:12/01/24 12:12/01/24 12:00 Narrative Exam General: Elderly female, obese, No acute distress, cooperative, lethargic HEENT: NCAT, No JVD noted. Mucosa moist. Pupils are equal and reactive to light bilaterally Cardiovascular: Normal S1 and S2. Regular rate and rhythm. Respiratory: Lungs are clear to auscultation bilaterally. No wheezing or crackles heard. Abdomen: Soft,RLQ tender to deep palpation, not distended, normal bowel sounds. Skin: Warm to touch, dry, no rashes noted Musculoskeletal: No gross injuries. Able to move all 4 extremities. No pitting edema, b/l varicose veins Neuro: Alert and oriented x3. No focal neuro deficits. Psych: Normal affect and mood Objective Labs 12/01/24 05:07 12/01/24 05:07 Labs: Laboratory Results - last 24 hr 12/01/24 05:07 WBC 5.4 RBC 3.05 L Hgb 8.0 L Hct 23.6 L MCV 77 L MCH 26.2 MCHC 33.9 RDW Std Deviation 53.5 H Plt Count 86 L Neut % (Auto) 60 Lymph % (Auto) 19 [place] % (Auto) 15 H Eos % (Auto) 4 Baso % (Auto) 0 Neut # (Auto) 3.3 Lymph # (Auto) 1.0 [place] # (Auto) 0.8 Eos # (Auto) 0.2 Baso # (Auto) 0.0 Immature Gran # (Auto) 0.06 H Absolute Nucleated RBC 0.00 Immature Gran % 1 H Nucleated RBC % 0 Sodium 141 Potassium 3.4 D Chloride 105 Carbon Dioxide 26.0 Anion Gap 10 BUN 15 Creatinine 0.7 Estim Creat Clear Calc 70.2 eGFR > 60 BUN/Creatinine Ratio 21 H Glucose [address] Glu mg/dL 117 Hemoglobin A1c 5.7 Calculated Osmolality 280 Calcium 8.6 Corrected Calcium 9.2 Phosphorus 4.5 Magnesium 1.8 Total Bilirubin 0.8 AST 56 H ALT 32 Alkaline Phosphatase 109 Total Protein 6.3 Albumin 3.3 L Globulin 3.0 Albumin/Globulin Ratio 1.1 L ABG Interpretation ABG results: 11/30/24 05:29 ABG pH 7.43 ABG pCO2 34 ABG pO2 94 ABG HCO3 23 ABG O2 Saturation 97 ABG Base Excess -1 Quality Measures Quality Measures none Advance care planning discussed with:: child Assessment & Plan Assessment Current Active Medications: Generic Name Dose Route Start Last Admin Trade Name Freq PRN Reason Stop Dose Admin Acetaminophen 650 mg 11/30/24 12:55 Acetaminophen 325 Mg Tablet PO 12/30/24 12:54 Q6H PRN Fever >100.3 or pain Atorvastatin Calcium 20 mg 11/30/24 13:15 12/01/24 08:31 Atorvastatin Calcium 20 Mg Tablet PO 12/30/24 13:14 Not Given QDAY BRY Dextrose 25 ml 11/30/24 12:55 11/30/24 13:42 Dextrose 50%-Water Inj 50 Ml Syringe IV 12/30/24 12:54 25 ml Q15MIN PRN Administration BG 50-70 responsive npo pt Dextrose 50 ml 11/30/24 12:55 Dextrose 50%-Water Inj 50 Ml Syringe IV 12/30/24 12:54 Q15MIN PRN BG <50 OR BG <70 & pt unresponsive Furosemide 20 mg 11/30/24 13:15 12/01/24 08:37 Furosemide 20 Mg Tablet PO 12/30/24 13:14 20 mg QAM BRY Administration Glucagon 1 mg 11/30/24 12:55 Glucagon Inj 1 Mg Vial IM Q15MIN PRN BG <70, and no IV access Octreotide Acetate 1,000 mcg/ 102 mls @ 5.1 mls/hr 11/30/24 23:45 11/30/24 20:35 Sodium Chloride IV 12/05/24 03:44 50 mcg/hr .Q20H BRY 5.1 mls/hr Administration Protocol 50 MCG/HR Sodium Chloride 1,000 mls @ 80 mls/hr 12/01/24 07:41 12/01/24 09:31 Ns IV 12/01/24 20:10 80 mls/hr .[id number] ONE Administration Insulin Human Lispro 0 unit 11/30/24 13:00 12/01/24 11:18 Insulin Lispro (Admelog) 1 Unit/0.01 Ml Unit SC 12/30/24 12:59 Not Given Q6HR BRY Protocol Isosorbide Mononitrate 30 mg 11/30/24 13:15 12/01/24 08:37 Isosorbide Er Mononitrate 30 Mg Tabcr PO 12/30/24 13:14 30 mg QDAY BRY Administration Losartan Potassium 50 mg 11/30/24 13:15 12/01/24 08:36 Losartan Potassium 25 Mg Tablet PO 12/30/24 13:14 50 mg QDAY BRY Administration Ondansetron HCl 4 mg 11/30/24 12:55 Ondansetron Inj 2 Mg/Ml Inj 2 Ml IV 12/30/24 12:54 Q6H PRN NAUSEA OR VOMITING Protocol Pantoprazole Sodium 40 mg 11/30/24 21:00 12/01/24 08:37 Pantoprazole Inj 40 Mg Vial IVP 12/30/24 20:59 40 mg Q12HR BRY Administration Sennosides 1 tab 11/30/24 12:55 Senna Tablet PO 12/30/24 12:54 QDAY PRN constipation Protocol Plan Nano Chong is 74 yr female with PMH of insulin-dependent type 2 diabetes, hyperlipidemia, cirrhosis, CAD s/p stents who BIBA from [facility] presents to the ED after being transferred here for a higher [id number]. Per daughter at bedside, patient has been experiencing vomiting since past few days. Daughter endorses approximately 2 bowel movements that were dark in color. Patient will be admitted for repeat EGD as follow up for GI bleed s/p banding. #GI bleed #Grade III esophageal varicies s/p band ligation #Hemorrhoids #Hx cirrhosis 2/2 ETOH use Patient is having 1-2 episodes of melena and vomiting. FOBT + in [place]. She had band ligation 10/21/24 after EGD showed grade III varicies. Patient was to follow up with Dr. Ndaiye in [address] a/p done at [facility]: probable cirrhotic liver, prominent spleen, portal venous HTN with some vascular shunting/varicies, multiple small calcified gallstones. Hb 8.6 on admission, MCV 80. -Dr. Ndiaye consulted, appreciate recs: EGD planned for today -NPO -Pantoprazole 40 mg BID - Hold NSAIDs, antiplatelets -octreotide infusion for 5 days (11/30-12/04) -daily CBC -transfuse if Hb >7 #History of insulin dependent type 2 diabetes On admission initial glucose 91. Patient takes 65 units glargine at bedtime, metformin 500 twice daily for diabetes at home. A1c on this admission--5.7 -Held home medications -Bedside blood glucose checks q6hr due to NPO -Insulin lispro sliding scale -Carb consistent low diet #Hx CAD s/p stents #Hx HTN #Hx HLD - Atorvastatin 20 mg daily ?furosemide 20 mg daily ? Isosorbide mononitrate 30 mg daily ? Losartan 50 mg daily ? Holding aspirin and Plavix in setting of acute bleed Health maintenance: Dispo: med surg, EGD FEN: NPO DVT prophylaxis: SCDs CODE STATUS: Full code The patient's management plan was discussed with my attending physician Dr. Carrasquillo. Nazia Tapia, PGY-1 Attending Provider Attestation/Addendum Patient is waiting for EGD procedure by Dr. Ndiaye. Patient's relative states that she did not see any episode of melena no hematochezia no hematemesis. Patient is alert and oriented. She has no abdominal pain she has stable vital signs. Discussed with housestaff.
--- NOTE | 2024-12-01 12:22 | PC.SS ---
SS met with patient at bedside to complete initial assessment. Patient speaks French. Patient?s daughter Marta Jane provided information for initial assessment. Patient?s daughter Marta confirmed demographic information. Patient?s daughter Marta stated patient lives with her and patient is independent with ADLs. Patient is also independent with ambulation. Patient?s daughter Marta stated she and her sibling Elizabeth Bonilla to be patient?s alternate surrogate medical decision makers. Marta Jane?s contact [phone]. Pharmacy: [facility]. PCP: Dr. Ndiaye. Dr. Hays-Fourdrinier Wire Weaver. ? Next of kin: Daughter Marta Jane [phone] Discharge plan: Home, daughter to provide transportation
--- NOTE | 2024-12-01 14:18 | SUR.PHASEI ---
received report and patient from KESHAWN Gomez. Pt lethargic, arousable to voice and touch, vss, pt follow command appropriately. IV x2 in place, no s/s of infiltration or redness to sites. pt denies any pain or nausea
--- NOTE | 2024-12-01 14:53 | SUR.PHASEI ---
spoke to dr leos regarding elevated BP in the 180's, received x1 prn order. applied a larger bp cuff, repositioned pt , sbp improved to 169. Dr. Leos made aware
--- NOTE | 2024-12-01 14:56 | SUR.PHASEI ---
report given to KESHAWN Le, vss, bp improved. Dr. Ndiaye aware. Pt ready to transfer. pt tolerated ice chips, no nausea or pain reported. IV remain intact and free of redness and/or infiltration. Patient awake, A&ox3
[2024-12-01] MEDS: OCTREOTIDE ACET INJ 1,000 MCG in SODIUM CHLORIDE 0.9% 100 ML 5.1 MCG IV (17:14)
[2024-12-01] MEDS: hydrALAZINE INJ 20 MG/ML VIAL 10 MG IV (17:14)
[2024-12-01] MEDS: INSULIN LISPRO (AdmeLOG) 1 UNIT/0.01 ML UNIT SC (23:53)
[2024-12-02] VITALS (11 sets, daily range): BP systolic 118–160; BP diastolic 59–72; PULSE 76–92; RESP 16–95; TEMP 36.2–36.9; O2SAT 93–99
[2024-12-02 05:17] LABS: Basophils % (Auto) 0 % (0-2.5); Eosinophils # (Auto) 0.2 Thou/mm3 (0.0-0.5); Eosinophils % (Auto) 4 % (0-10); Hematocrit 24.9 % (36.0-46.0); Immature Granulocytes % (Auto) 0 % (0-0); Immature Granulocytes Auto 0.01 Thou/mm3 (0.00-0.00); Lymphocytes % (Auto) 19 % (10-50); Mean Corpuscular HGB Conc 32.5 g/dl (31.0-37.0); Mean Corpuscular Volume 80 fL (80-100); Monocytes # (Auto) 0.8 Thou/mm3 (0.0-0.8); Monocytes % (Auto) 14 % (0-12); Neutrophils # (Auto) 3.5 Thou/mm3 (1.8-7.7); Neutrophils % (Auto) 63 % (37-80); Nucleated Red Blood Cell % 0 /100 WBC (0); Platelet Count 96 Thou/mm3 (140-440); RDW Standard Deviation 56.2 fL (36.4-46.3); Red Blood Count 3.12 Miln/mm3 (4.00-5.20); White Blood Count 5.6 Thou/mm3 (3.6-11.0)
[2024-12-02 05:18] LABS: Hemoglobin 8.1 g/dL (12.0-16.0)
[2024-12-02 06:06] LABS: Alanine Aminotransferase 35 U/L (10-49); Albumin, Serum 3.4 gm/dL (3.4-4.8); Albumin/Globulin Ratio 1.1 (1.2-2.2); Alkaline Phosphatase 110 U/L (46-116); Anion Gap 9 (7-16); Aspartate Amino Transferase 61 U/L (0-34); BUN/Creatinine Ratio 23 Ratio (12-20); Bilirubin,Total 0.9 mg/dL (0.3-1.2); Blood Urea Nitrogen 16 mg/dL (9-23); Calcium 8.4 mg/dL (8.3-10.6); Calcium (Corrected) 8.9 mg/dL (8.5-10.1); Carbon Dioxide 26.6 mMol/L (20.0-31.0); Chloride 104 mMol/L (98-107); Creatinine (Component) 0.7 mg/dL (0.6-1.3); Estimated Creatinine Clearance 70.2 mL/min (>60); Globulin 3.1 gm/dL (2.3-3.5); Glucose 137 mg/dL (74-106); Osmolality,Calculated 282 (275-295); Potassium 3.3 mMol/L (3.4-5.1); Sodium 140 mMol/L (136-145); Total Protein 6.5 gm/dL (5.7-8.2); eGFR > 60 See Note
--- NOTE | 2024-12-02 09:01 | PC.SS ---
Follow up note: Will require 5 day of IV Octreotide drip, until 12-04-24. Currently on day 2. Pt will return home upon dc.
[2024-12-02] MEDS: PANTOPRAZOLE INJ 40 MG VIAL IVP ×2 (09:45→20:28)
[2024-12-02] MEDS: LOSARTAN POTASSIUM 25 MG TABLET 50 MG PO (09:45)
[2024-12-02] MEDS: ISOSORBIDE ER MONONITRATE 30 MG TABCR PO (09:45)
[2024-12-02] MEDS: Furosemide 20 MG TABLET PO (09:46)
[2024-12-02] MEDS: POTASSIUM CHLORIDE 20 mEq TABCR 40 MEQ PO (09:46)
[2024-12-02] MEDS: ATORVASTATIN CALCIUM 20 MG TABLET PO (09:46)
[2024-12-02] MEDS: INSULIN LISPRO (AdmeLOG) 1 UNIT/0.01 ML UNIT SC ×2 (12:11→17:29)
[2024-12-02] MEDS: OCTREOTIDE ACET INJ 1,000 MCG in SODIUM CHLORIDE 0.9% 100 ML 5.1 MCG IV (15:24)
--- NOTE | 2024-12-02 15:50 | ESPR_ITS ---
Documentation for date of: 12/02/24 Subjective Subjective Interval history: Patient examined at bedside. No events overnight, no major complaints. Patient had EGD done yesterday which showed gastritis and grade 3 esophageal varices with bleeding. 6 ligation bands were placed. Recommendations to resume low-sodium diet and complete octreotide drip by 12/04. Blood sugars well-controlled, 137 this a.m. Vitals are stable, hemoglobin stable 8. Hypokalemic this morning 3.3 repleted 40+40 mEq. Diet was resumed, patient has had no further episodes of melena. Exam Vital Signs Temp Pulse Resp BP Pulse Ox O2 Del Method O2 Flow Rate 97.7 F 80 16 141/69 H 97 Room Air 2 12/02/24 12:00 12/02/24 12:00 12/02/24 12:00 12/02/24 12:00 12/02/24 12:00 12/02/24 08:00 12/01/24 14:12 Narrative Exam General: Elderly female, obese, No acute distress, cooperative, lethargic HEENT: NCAT, No JVD noted. Mucosa moist. Pupils are equal and reactive to light bilaterally Cardiovascular: Normal S1 and S2. Regular rate and rhythm. Respiratory: Lungs are clear to auscultation bilaterally. No wheezing or crackles heard. Abdomen: Soft,RLQ tender to deep palpation, not distended, normal bowel sounds. Skin: Warm to touch, dry, no rashes noted Musculoskeletal: No gross injuries. Able to move all 4 extremities. No pitting edema, b/l varicose veins Neuro: Alert and oriented x3. No focal neuro deficits. Psych: Normal affect and mood Objective Labs 12/02/24 04:28 12/02/24 04:28 Labs: Laboratory Results - last 24 hr 12/02/24 04:28 WBC 5.6 RBC 3.12 L Hgb 8.1 L Hct 24.9 L MCV 80 MCH 26.0 MCHC 32.5 RDW Std Deviation 56.2 H Plt Count 96 L Neut % (Auto) 63 Lymph % (Auto) 19 [place] % (Auto) 14 H Eos % (Auto) 4 Baso % (Auto) 0 Neut # (Auto) 3.5 Lymph # (Auto) 1.0 [place] # (Auto) 0.8 Eos # (Auto) 0.2 Baso # (Auto) 0.0 Immature Gran # (Auto) 0.01 H Absolute Nucleated RBC 0.00 Immature Gran % 0 Nucleated RBC % 0 Sodium 140 Potassium 3.3 L Chloride 104 Carbon Dioxide 26.6 Anion Gap 9 BUN 16 Creatinine 0.7 Estim Creat Clear Calc 70.2 eGFR > 60 BUN/Creatinine Ratio 23 H Glucose 137 H D Calculated Osmolality 282 Calcium 8.4 Corrected Calcium 8.9 Total Bilirubin 0.9 AST 61 H ALT 35 Alkaline Phosphatase 110 Total Protein 6.5 Albumin 3.4 Globulin 3.1 Albumin/Globulin Ratio 1.1 L ABG Interpretation ABG results: 11/30/24 05:29 ABG pH 7.43 ABG pCO2 34 ABG pO2 94 ABG HCO3 23 ABG O2 Saturation 97 ABG Base Excess -1 Quality Measures Quality Measures none Advance care planning discussed with:: child Assessment & Plan Assessment Current Active Medications: Generic Name Dose Route Start Last Admin Trade Name Freq PRN Reason Stop Dose Admin Acetaminophen 650 mg 11/30/24 12:55 Acetaminophen 325 Mg Tablet PO 12/30/24 12:54 Q6H PRN Fever >100.3 or pain Atorvastatin Calcium 20 mg 11/30/24 13:15 12/02/24 09:46 Atorvastatin Calcium 20 Mg Tablet PO 12/30/24 13:14 20 mg QDAY BRY Administration Dextrose 25 ml 11/30/24 12:55 11/30/24 13:42 Dextrose 50%-Water Inj 50 Ml Syringe IV 12/30/24 12:54 25 ml Q15MIN PRN Administration BG 50-70 responsive npo pt Dextrose 50 ml 11/30/24 12:55 Dextrose 50%-Water Inj 50 Ml Syringe IV 12/30/24 12:54 Q15MIN PRN BG <50 OR BG <70 & pt unresponsive Furosemide 20 mg 11/30/24 13:15 12/02/24 09:46 Furosemide 20 Mg Tablet PO 12/30/24 13:14 20 mg QAM BRY Administration Glucagon 1 mg 11/30/24 12:55 Glucagon Inj 1 Mg Vial IM Q15MIN PRN BG <70, and no IV access Hydralazine HCl 10 mg 12/01/24 16:23 12/01/24 17:14 Hydralazine Inj 20 Mg/Ml Vial IV 12/31/24 16:22 10 mg Q6H PRN Administration sbp > 160 &/or DBP > 90 Octreotide Acetate 1,000 mcg/ 102 mls @ 5.1 mls/hr 11/30/24 23:45 12/02/24 15:24 Sodium Chloride IV 12/05/24 03:44 50 mcg/hr .Q20H BRY 5.1 mls/hr Administration Protocol 50 MCG/HR Insulin Human Lispro 0 unit 11/30/24 13:00 12/02/24 12:11 Insulin Lispro (Admelog) 1 Unit/0.01 Ml Unit SC 12/30/24 12:59 2 unit Q6HR BRY Administration Protocol Isosorbide Mononitrate 30 mg 11/30/24 13:15 12/02/24 09:45 Isosorbide Er Mononitrate 30 Mg Tabcr PO 12/30/24 13:14 30 mg QDAY BRY Administration Losartan Potassium 50 mg 11/30/24 13:15 12/02/24 09:45 Losartan Potassium 25 Mg Tablet PO 12/30/24 13:14 50 mg QDAY RBY Administration Ondansetron HCl 4 mg 11/30/24 12:55 Ondansetron Inj 2 Mg/Ml Inj 2 Ml IV 12/30/24 12:54 Q6H PRN NAUSEA OR VOMITING Protocol Pantoprazole Sodium 40 mg 11/30/24 21:00 12/02/24 09:45 Pantoprazole Inj 40 Mg Vial IVP 12/30/24 20:59 40 mg Q12HR BRY Administration Sennosides 1 tab 11/30/24 12:55 Senna Tablet PO 12/30/24 12:54 QDAY PRN constipation Protocol Plan Nano Chong is 74 yr female with PMH of insulin-dependent type 2 diabetes, hyperlipidemia, cirrhosis, CAD s/p stents who BIBA from [facility] presents to the ED after being transferred here for a higher [id number]. Per daughter at bedside, patient has been experiencing vomiting since past few days. Daughter endorses approximately 2 bowel movements that were dark in color. Patient will be admitted for repeat EGD as follow up for GI bleed s/p banding. #GI bleed #Grade III esophageal varicies s/p band ligation #Hemorrhoids #Hx cirrhosis 2/2 ETOH use Patient is having 1-2 episodes of melena and vomiting. FOBT + in [place]. She had band ligation 10/21/24 after EGD showed grade III varicies. Patient was to follow up with Dr. Ndiaye in [address] a/p done at [facility]: probable cirrhotic liver, prominent spleen, portal venous HTN with some vascular shunting/varicies, multiple small calcified gallstones. Hb 8.6 on admission, MCV 80. EGD 12/01/24: gastritis and grade 3 esophageal varices with bleeding. 6 ligation bands were placed. -Dr. Ndiaye consulted, appreciate recs: 2gm sodium diet, complete octreotide drip -Pantoprazole 40 mg BID - Hold NSAIDs, antiplatelets -octreotide infusion for 5 days (11/30-12/04) -daily CBC -transfuse if Hb >7 #History of insulin dependent type 2 diabetes On admission initial glucose 91. Patient takes 65 units glargine at bedtime, metformin 500 twice daily for diabetes at home. A1c on this admission--5.7 -Held home medications -Bedside blood glucose checks q6hr due to NPO -Insulin lispro sliding scale -Carb consistent low diet #Hx CAD s/p stents #Hx HTN #Hx HLD - Atorvastatin 20 mg daily ?furosemide 20 mg daily ? Isosorbide mononitrate 30 mg daily ? Losartan 50 mg daily ? Holding aspirin and Plavix in setting of acute bleed #Electrolyte abnormalities Replete as needed Health maintenance: Dispo: med surg, octreotide drip for 2 more days FEN: Low-sodium carb consistent DVT prophylaxis: SCDs CODE STATUS: Full code The patient's management plan was discussed with my attending physician Dr. Carrasquillo. Nazia Tapia, PGY-1 LI discussed with and supervised the internet designer physician who took care of this patient. I personally saw and examined the patient and discussed the assessment and plan with the entire medicine team, including my attending Dr. Foreign WATKINS. I agree with the assessment and plan as documented above. Patient interviewed and examined at bedside this a.m. No overnight events reported. Patient underwent EGD yesterday with successful band ligation of esophageal varices. Per the EGD report 6 ligation bands were placed. Patient's family was present at bedside on evaluation who stated she seemed somewhat sleepy. Advised that this was most likely due to medication effect from the recommendations we will continue octreotide drip with end date of . Labs and vitals reviewed. Patient had a low potassium of 3.3 which was repleted. Will continue to monitor electrolytes and hemoglobin with daily labs. Tadeo Bustos M.D. Internal Medicine PGY-2 Attending Provider Attestation/Addendum The patient had EGD. She she has esophageal varices. The patient will continue on octreotide drip. She had no bowel movement. She denies abdominal pain no hematemesis no melena. She tolerated her diet. Continue to monitor hemoglobin hematocrit. She is alert. She has no encephalopathy.
--- NOTE | 2024-12-02 19:09 | ESPR_ITS ---
Documentation for date of: 12/02/24 Subjective Subjective Interval history: Patient evaluated Hemoglobin hematocrit 8.1 and 24.9 Having bowel movements On octreotide infusion Upper endoscopy showed 4+ esophageal varices requiring band ligation total of 6 bands were put in Exam Vital Signs Temp Pulse Resp BP Pulse Ox O2 Del Method O2 Flow Rate 97.9 F 88 18 118/59 L 99 Room Air 2 12/02/24 16:00 12/02/24 16:00 12/02/24 16:00 12/02/24 16:00 12/02/24 16:00 12/02/24 16:00 12/01/24 14:12 Objective Labs 12/02/24 04:28 12/02/24 04:28 Labs: Laboratory Results - last 24 hr 12/02/24 04:28 WBC 5.6 RBC 3.12 L Hgb 8.1 L Hct 24.9 L MCV 80 MCH 26.0 MCHC 32.5 RDW Std Deviation 56.2 H Plt Count 96 L Neut % (Auto) 63 Lymph % (Auto) 19 [place] % (Auto) 14 H Eos % (Auto) 4 Baso % (Auto) 0 Neut # (Auto) 3.5 Lymph # (Auto) 1.0 [place] # (Auto) 0.8 Eos # (Auto) 0.2 Baso # (Auto) 0.0 Immature Gran # (Auto) 0.01 H Absolute Nucleated RBC 0.00 Immature Gran % 0 Nucleated RBC % 0 Sodium 140 Potassium 3.3 L Chloride 104 Carbon Dioxide 26.6 Anion Gap 9 BUN 16 Creatinine 0.7 Estim Creat Clear Calc 70.2 eGFR > 60 BUN/Creatinine Ratio 23 H Glucose 137 H D Calculated Osmolality 282 Calcium 8.4 Corrected Calcium 8.9 Total Bilirubin 0.9 AST 61 H ALT 35 Alkaline Phosphatase 110 Total Protein 6.5 Albumin 3.4 Globulin 3.1 Albumin/Globulin Ratio 1.1 L Impressions Impression: Acute upper GI bleed Status post band ligation of the esophageal varices total of 6 esophageal bands were put in I will continue with the Plavix Chronic liver disease secondary to previous consumption of alcohol ABG Interpretation ABG results: 11/30/24 05:29 ABG pH 7.43 ABG pCO2 34 ABG pO2 94 ABG HCO3 23 ABG O2 Saturation 97 ABG Base Excess -1 Assessment & Plan A&P Narrative # Acute GI bleed with melena # Acute posthemorrhagic anemia # Chronic liver disease secondary to alcohol with advanced portal hypertension workup systemic collaterals and splenomegaly with history of previous band ligation of esophageal varices on 10/21/2024 # Diabetes mellitus type 1 # Essential hypertension # Coronary artery disease status post PTCA # Hyperlipidemia Plan Clear liquid diet N.p.o. midnight tonight Consent obtained for fiberoptic esophagogastroduodenoscopy with possible therapeutic intervention possible biopsy under intravenous moderate sedation serial CBC octreotide 50 mcg IV push and then 50 mcg/h continuous infusion Protonix IV thank you very much for the opportunity to participate in the care of this patient Time Spent With Patient Time: Total time spent is greater than 50% in coordination of care (as documented) at patient's floor/unit and/or counseling patient:
[2024-12-03] VITALS (9 sets, daily range): BP systolic 148–164; BP diastolic 64–86; PULSE 77–88; RESP 15–94; TEMP 36.3–36.9; O2SAT 94–100; BMI 37.7
[2024-12-03] MEDS: INSULIN LISPRO (AdmeLOG) 1 UNIT/0.01 ML UNIT SC ×4 (00:57→17:39)
[2024-12-03 06:28] LABS: Basophils % (Auto) 0 % (0-2.5); Eosinophils # (Auto) 0.2 Thou/mm3 (0.0-0.5); Eosinophils % (Auto) 3 % (0-10); Hematocrit 27.2 % (36.0-46.0); Immature Granulocytes % (Auto) 0 % (0-0); Immature Granulocytes Auto 0.02 Thou/mm3 (0.00-0.00); Lymphocytes # (Auto) 0.8 Thou/mm3 (1.0-4.8); Lymphocytes % (Auto) 15 % (10-50); Mean Corpuscular HGB Conc 32.4 g/dl (31.0-37.0); Mean Corpuscular Hemoglobin 25.9 pg (25.0-35.0); Mean Corpuscular Volume 80 fL (80-100); Monocytes # (Auto) 0.7 Thou/mm3 (0.0-0.8); Monocytes % (Auto) 13 % (0-12); Neutrophils # (Auto) 3.7 Thou/mm3 (1.8-7.7); Neutrophils % (Auto) 69 % (37-80); Nucleated Red Blood Cell % 0 /100 WBC (0); Platelet Count 84 Thou/mm3 (140-440); RDW Standard Deviation 55.9 fL (36.4-46.3); White Blood Count 5.4 Thou/mm3 (3.6-11.0)
[2024-12-03 06:50] LABS: Hemoglobin 8.8 g/dL (12.0-16.0)
[2024-12-03 06:52] LABS: Alanine Aminotransferase 35 U/L (10-49); Albumin, Serum 3.7 gm/dL (3.4-4.8); Albumin/Globulin Ratio 1.1 (1.2-2.2); Alkaline Phosphatase 118 U/L (46-116); Anion Gap 10 (7-16); Aspartate Amino Transferase 54 U/L (0-34); BUN/Creatinine Ratio 20 Ratio (12-20); Bilirubin,Total 1.3 mg/dL (0.3-1.2); Blood Urea Nitrogen 14 mg/dL (9-23); Calcium 8.7 mg/dL (8.3-10.6); Calcium (Corrected) 8.9 mg/dL (8.5-10.1); Carbon Dioxide 24.1 mMol/L (20.0-31.0); Chloride 104 mMol/L (98-107); Creatinine (Component) 0.7 mg/dL (0.6-1.3); Estimated Creatinine Clearance 70.2 mL/min (>60); Globulin 3.3 gm/dL (2.3-3.5); Glucose 171 mg/dL (74-106); Osmolality,Calculated 280 (275-295); Potassium 3.6 mMol/L (3.4-5.1); Sodium 138 mMol/L (136-145); eGFR > 60 See Note
[2024-12-03] MEDS: ISOSORBIDE ER MONONITRATE 30 MG TABCR PO (09:25)
[2024-12-03] MEDS: POTASSIUM CHLORIDE 20 mEq TABCR 40 MEQ PO (09:25)
[2024-12-03] MEDS: PANTOPRAZOLE INJ 40 MG VIAL IVP ×2 (09:25→20:24)
[2024-12-03] MEDS: ATORVASTATIN CALCIUM 20 MG TABLET PO (09:25)
[2024-12-03] MEDS: LOSARTAN POTASSIUM 25 MG TABLET 50 MG PO (09:25)
[2024-12-03] MEDS: Furosemide 20 MG TABLET PO (09:26)
[2024-12-03] MEDS: OCTREOTIDE ACET INJ 1,000 MCG in SODIUM CHLORIDE 0.9% 100 ML 5.1 MCG IV (11:19)
[2024-12-03] MEDS: SENNA TABLET 1 TAB PO (11:19)
--- NOTE | 2024-12-03 16:58 | ESPR_ITS ---
Documentation for date of: 12/03/24 Subjective Subjective Interval history: Patient examined at bedside. No events overnight, no major complaints. She had not had BM yet. Continue low-sodium diet and complete octreotide drip by 12/04. Blood sugars well-controlled, 171 this a.m. Hb is stable around 8. Vitals are stable, hemoglobin stable 8. Potassium 3.6, repleated with 40mEq. Start Senna and PEG. Montior BM. Exam Vital Signs Temp Pulse Resp BP Pulse Ox O2 Del Method O2 Flow Rate 98.4 F 77 18 154/64 H 98 Room Air 2 12/03/24 15:43 12/03/24 15:43 12/03/24 15:43 12/03/24 15:43 12/03/24 15:43 12/03/24 07:31 12/01/24 14:12 Narrative Exam General: Elderly female, obese, No acute distress, cooperative, lethargic HEENT: NCAT, No JVD noted. Mucosa moist. Pupils are equal and reactive to light bilaterally Cardiovascular: Normal S1 and S2. Regular rate and rhythm. Respiratory: Lungs are clear to auscultation bilaterally. No wheezing or crackles heard. Abdomen: Soft,RLQ tender to deep palpation, not distended, normal bowel sounds. Skin: Warm to touch, dry, no rashes noted Musculoskeletal: No gross injuries. Able to move all 4 extremities. No pitting edema, b/l varicose veins Neuro: Alert and oriented x3. No focal neuro deficits. Psych: Normal affect and mood Objective Labs 12/04/24 05:20 12/04/24 05:20 Labs: Laboratory Results - last 24 hr 12/03/24 05:06 WBC 5.4 RBC 3.40 L Hgb 8.8 L Hct 27.2 L MCV 80 MCH 25.9 MCHC 32.4 RDW Std Deviation 55.9 H Plt Count 84 L Neut % (Auto) 69 Lymph % (Auto) 15 [place] % (Auto) 13 H Eos % (Auto) 3 Baso % (Auto) 0 Neut # (Auto) 3.7 Lymph # (Auto) 0.8 L [place] # (Auto) 0.7 Eos # (Auto) 0.2 Baso # (Auto) 0.0 Immature Gran # (Auto) 0.02 H Absolute Nucleated RBC 0.00 Immature Gran % 0 Nucleated RBC % 0 Sodium 138 Potassium 3.6 Chloride 104 Carbon Dioxide 24.1 Anion Gap 10 BUN 14 Creatinine 0.7 Estim Creat Clear Calc 70.2 eGFR > 60 BUN/Creatinine Ratio 20 Glucose 171 H Calculated Osmolality 280 Calcium 8.7 Corrected Calcium 8.9 Total Bilirubin 1.3 H AST 54 H ALT 35 Alkaline Phosphatase 118 H Total Protein 7.0 Albumin 3.7 Globulin 3.3 Albumin/Globulin Ratio 1.1 L ABG Interpretation ABG results: 11/30/24 05:29 ABG pH 7.43 ABG pCO2 34 ABG pO2 94 ABG HCO3 23 ABG O2 Saturation 97 ABG Base Excess -1 Quality Measures Quality Measures none Advance care planning discussed with:: child Assessment & Plan Assessment Current Active Medications: Generic Name Dose Route Start Last Admin Trade Name Freq PRN Reason Stop Dose Admin Acetaminophen 650 mg 11/30/24 12:55 Acetaminophen 325 Mg Tablet PO 12/30/24 12:54 Q6H PRN Fever >100.3 or pain Atorvastatin Calcium 20 mg 11/30/24 13:15 12/03/24 09:25 Atorvastatin Calcium 20 Mg Tablet PO 12/30/24 13:14 20 mg QDAY BRY Administration Dextrose 25 ml 11/30/24 12:55 11/30/24 13:42 Dextrose 50%-Water Inj 50 Ml Syringe IV 12/30/24 12:54 25 ml Q15MIN PRN Administration BG 50-70 responsive npo pt Dextrose 50 ml 11/30/24 12:55 Dextrose 50%-Water Inj 50 Ml Syringe IV 12/30/24 12:54 Q15MIN PRN BG <50 OR BG <70 & pt unresponsive Furosemide 20 mg 11/30/24 13:15 12/03/24 09:26 Furosemide 20 Mg Tablet PO 12/30/24 13:14 20 mg QAM BRY Administration Glucagon 1 mg 11/30/24 12:55 Glucagon Inj 1 Mg Vial IM Q15MIN PRN BG <70, and no IV access Hydralazine HCl 10 mg 12/01/24 16:23 12/01/24 17:14 Hydralazine Inj 20 Mg/Ml Vial IV 12/31/24 16:22 10 mg Q6H PRN Administration sbp > 160 &/or DBP > 90 Octreotide Acetate 1,000 mcg/ 102 mls @ 5.1 mls/hr 11/30/24 23:45 12/03/24 11:19 Sodium Chloride IV 12/05/24 03:44 50 mcg/hr .Q20H BRY 5.1 mls/hr Administration Protocol 50 MCG/HR Insulin Human Lispro 0 unit 11/30/24 13:00 12/03/24 12:07 Insulin Lispro (Admelog) 1 Unit/0.01 Ml Unit SC 12/30/24 12:59 1 unit Q6HR BRY Administration Protocol Isosorbide Mononitrate 30 mg 11/30/24 13:15 12/03/24 09:25 Isosorbide Er Mononitrate 30 Mg Tabcr PO 12/30/24 13:14 30 mg QDAY BRY Administration Losartan Potassium 50 mg 11/30/24 13:15 12/03/24 09:25 Losartan Potassium 25 Mg Tablet PO 12/30/24 13:14 50 mg QDAY BRY Administration Ondansetron HCl 4 mg 11/30/24 12:55 Ondansetron Inj 2 Mg/Ml Inj 2 Ml IV 12/30/24 12:54 Q6H PRN NAUSEA OR VOMITING Protocol Pantoprazole Sodium 40 mg 11/30/24 21:00 12/03/24 09:25 Pantoprazole Inj 40 Mg Vial IVP 12/30/24 20:59 40 mg Q12HR BRY Administration Sennosides 1 tab 11/30/24 12:55 12/03/24 11:19 Senna Tablet PO 12/30/24 12:54 1 tab QDAY PRN Administration constipation Protocol Plan Nano Chong is 74 yr female with PMH of insulin-dependent type 2 diabetes, hyperlipidemia, cirrhosis, CAD s/p stents who BIBA from [facility] presents to the ED after being transferred here for a higher [id number]. Per daughter at bedside, patient has been experiencing vomiting since past few days. Daughter endorses approximately 2 bowel movements that were dark in color. Patient will be admitted for repeat EGD as follow up for GI bleed s/p banding. #GI bleed #Grade III esophageal varicies s/p band ligation #Hemorrhoids #Hx cirrhosis 2/2 ETOH use Patient is having 1-2 episodes of melena and vomiting. FOBT + in [place]. She had band ligation 10/21/24 after EGD showed grade III varicies. Patient was to follow up with Dr. Ndiaye in [address] a/p done at [facility]: probable cirrhotic liver, prominent spleen, portal venous HTN with some vascular shunting/varicies, multiple small calcified gallstones. Hb 8.6 on admission, MCV 80. EGD 12/01/24: gastritis and grade 3 esophageal varices with bleeding. 6 ligation bands were placed. -Dr. Ndiaye consulted, appreciate recs: 2gm sodium diet, complete octreotide drip -Pantoprazole 40 mg BID - Hold NSAIDs, antiplatelets -octreotide infusion for 5 days (11/30-12/04) -daily CBC -transfuse if Hb >7 #History of insulin dependent type 2 diabetes On admission initial glucose 91. Patient takes 65 units glargine at bedtime, metformin 500 twice daily for diabetes at home. A1c on this admission--5.7 -Held home medications -Bedside blood glucose checks q6hr due to NPO -Insulin lispro sliding scale -Carb consistent low diet #Hx CAD s/p stents #Hx HTN #Hx HLD - Atorvastatin 20 mg daily ?furosemide 20 mg daily ? Isosorbide mononitrate 30 mg daily ? Losartan 50 mg daily ? Holding aspirin and Plavix in setting of acute bleed #Electrolyte abnormalities Replete as needed Health maintenance: Dispo: med surg, octreotide drip for 2 more days FEN: Low-sodium carb consistent DVT prophylaxis: SCDs CODE STATUS: Full code The patient's management plan was discussed with my attending physician Dr. Avalos. Nazia Tapia, PGY-1 LI discussed with and supervised the internet ecommerce specialist physician who took care of this patient. I personally saw and examined the patient and discussed the assessment and plan with the entire medicine team, including my attending Dr. Bailey WATKINS. I agree with the assessment and plan as documented above. Patient interviewed and examined at bedside this a.m. No acute overnight events reported. Patient underwent EGD with multiple bands placed quiring octreotide drip to complete on 12/04/2024. Hemoglobin remained stable continue to trend a.m. CBC along with CMP. Patients daughter does report patient having a history of being chronically constipated. Patient has not had a bowel movement in several days for which we will start polyethylene glycol and senna. Anticipate the patient to be discharged tomorrow upon completion of her octreotide drip. Tadeo Bustos M.D. Internal Medicine PGY-3 Attending Provider Attestation/Addendum I have examined the patient, reviewed labs and imaging findings, discussed the case with the resident(s), and reviewed entered orders. I agree with the plan of care as outlined in this note, with these additional summaries/recommendations: Patient and daughter seen at bedside. No acute overnight events. Continue octreotide drip for 1 more day. Patient denies any further bleeding for now. Continue blood sugar management for diabetes mellitus type II. Dr. Bailey MD
[2024-12-03] MEDS: POLYETHYLENE GLYCOL 17 GM PACKET PO (17:39)
--- NOTE | 2024-12-03 19:58 | PD.IMPROG ---
Documentation for date of: 12/03/24 Subjective Subjective Interval history: Patient evaluated Hemoglobin hematocrit 8.8 and 27.2 On octreotide infusion Exam Vital Signs Temp Pulse Resp BP Pulse Ox O2 Del Method O2 Flow Rate 98.4 F 77 18 154/64 H 98 Room Air 2 12/03/24 15:43 12/03/24 15:43 12/03/24 15:43 12/03/24 15:43 12/03/24 15:43 12/03/24 07:31 12/01/24 14:12 Objective Labs 12/03/24 05:06 12/03/24 05:06 Labs: Laboratory Results - last 24 hr 12/03/24 05:06 WBC 5.4 RBC 3.40 L Hgb 8.8 L Hct 27.2 L MCV 80 MCH 25.9 MCHC 32.4 RDW Std Deviation 55.9 H Plt Count 84 L Neut % (Auto) 69 Lymph % (Auto) 15 [place] % (Auto) 13 H Eos % (Auto) 3 Baso % (Auto) 0 Neut # (Auto) 3.7 Lymph # (Auto) 0.8 L [place] # (Auto) 0.7 Eos # (Auto) 0.2 Baso # (Auto) 0.0 Immature Gran # (Auto) 0.02 H Absolute Nucleated RBC 0.00 Immature Gran % 0 Nucleated RBC % 0 Sodium 138 Potassium 3.6 Chloride 104 Carbon Dioxide 24.1 Anion Gap 10 BUN 14 Creatinine 0.7 Estim Creat Clear Calc 70.2 eGFR > 60 BUN/Creatinine Ratio 20 Glucose 171 H Calculated Osmolality 280 Calcium 8.7 Corrected Calcium 8.9 Total Bilirubin 1.3 H AST 54 H ALT 35 Alkaline Phosphatase 118 H Total Protein 7.0 Albumin 3.7 Globulin 3.3 Albumin/Globulin Ratio 1.1 L Impressions Impression: Upper GI bleed secondary to esophageal variceal bleeding requiring band ligation of the esophageal varices In total 6 bands put in plan continue current management ABG Interpretation ABG results: 11/30/24 05:29 ABG pH 7.43 ABG pCO2 34 ABG pO2 94 ABG HCO3 23 ABG O2 Saturation 97 ABG Base Excess -1 Assessment & Plan A&P Narrative # Acute GI bleed with melena # Acute posthemorrhagic anemia # Chronic liver disease secondary to alcohol with advanced portal hypertension workup systemic collaterals and splenomegaly with history of previous band ligation of esophageal varices on 10/21/2024 # Diabetes mellitus type 1 # Essential hypertension # Coronary artery disease status post PTCA # Hyperlipidemia Plan Clear liquid diet N.p.o. midnight tonight Consent obtained for fiberoptic esophagogastroduodenoscopy with possible therapeutic intervention possible biopsy under intravenous moderate sedation serial CBC octreotide 50 mcg IV push and then 50 mcg/h continuous infusion Protonix IV thank you very much for the opportunity to participate in the care of this patient Time Spent With Patient Time: Total time spent is greater than 50% in coordination of care (as documented) at patient's floor/unit and/or counseling patient:
[2024-12-04] VITALS (7 sets, daily range): BP systolic 145–154; BP diastolic 66–95; PULSE 71–85; RESP 13–16; TEMP 36.2–36.6; O2SAT 94–99
[2024-12-04] MEDS: SENNA TABLET 1 TAB PO (06:00)
[2024-12-04 06:17] LABS: Basophils % (Auto) 0 % (0-2.5); Eosinophils # (Auto) 0.2 Thou/mm3 (0.0-0.5); Eosinophils % (Auto) 4 % (0-10); Hematocrit 26.4 % (36.0-46.0); Immature Granulocytes % (Auto) 0 % (0-0); Immature Granulocytes Auto 0.02 Thou/mm3 (0.00-0.00); Lymphocytes % (Auto) 18 % (10-50); Mean Corpuscular HGB Conc 32.6 g/dl (31.0-37.0); Mean Corpuscular Hemoglobin 26.1 pg (25.0-35.0); Mean Corpuscular Volume 80 fL (80-100); Monocytes # (Auto) 0.8 Thou/mm3 (0.0-0.8); Monocytes % (Auto) 15 % (0-12); Neutrophils # (Auto) 3.5 Thou/mm3 (1.8-7.7); Neutrophils % (Auto) 63 % (37-80); Nucleated Red Blood Cell % 0 /100 WBC (0); Platelet Count 81 Thou/mm3 (140-440); RDW Standard Deviation 55.2 fL (36.4-46.3); Red Blood Count 3.29 Miln/mm3 (4.00-5.20); White Blood Count 5.5 Thou/mm3 (3.6-11.0)
[2024-12-04 06:43] LABS: Alanine Aminotransferase 28 U/L (10-49); Albumin, Serum 3.3 gm/dL (3.4-4.8); Albumin/Globulin Ratio 1.1 (1.2-2.2); Alkaline Phosphatase 110 U/L (46-116); Anion Gap 10 (7-16); Aspartate Amino Transferase 43 U/L (0-34); BUN/Creatinine Ratio 19 Ratio (12-20); Bilirubin,Total 1.2 mg/dL (0.3-1.2); Blood Urea Nitrogen 13 mg/dL (9-23); Calcium 8.4 mg/dL (8.3-10.6); Carbon Dioxide 24.7 mMol/L (20.0-31.0); Chloride 107 mMol/L (98-107); Creatinine (Component) 0.7 mg/dL (0.6-1.3); Estimated Creatinine Clearance 68.7 mL/min (>60); Globulin 3.1 gm/dL (2.3-3.5); Glucose 161 mg/dL (74-106); Osmolality,Calculated 286 (275-295); Potassium 3.6 mMol/L (3.4-5.1); Sodium 142 mMol/L (136-145); Total Protein 6.4 gm/dL (5.7-8.2); eGFR > 60 See Note
[2024-12-04 06:51] LABS: Hemoglobin 8.6 g/dL (12.0-16.0)
--- NOTE | 2024-12-04 09:39 | PC.SS ---
Follow up note: Will complete IV Octreotide drip tomorrow. Pt will return home upon dc.
[2024-12-04] MEDS: OCTREOTIDE ACET INJ 1,000 MCG in SODIUM CHLORIDE 0.9% 100 ML 5.1 MCG IV (09:42)
[2024-12-04] MEDS: PANTOPRAZOLE INJ 40 MG VIAL IVP (09:43)
[2024-12-04] MEDS: LOSARTAN POTASSIUM 25 MG TABLET 50 MG PO (09:52)
[2024-12-04] MEDS: Furosemide 20 MG TABLET PO (09:53)
[2024-12-04] MEDS: ATORVASTATIN CALCIUM 20 MG TABLET PO (09:54)
[2024-12-04] MEDS: ISOSORBIDE ER MONONITRATE 30 MG TABCR PO (09:54)
--- NOTE | 2024-12-04 11:50 | PD.IMPROG ---
Documentation for date of: 12/04/24 Subjective Subjective Interval history: Case discussed with the internal medicine team Okay to discharge the patient home I will see her back in the office in 1 week Exam Vital Signs Temp Pulse Resp BP Pulse Ox O2 Del Method O2 Flow Rate 97.7 F 71 16 146/79 H 96 Room Air 2 12/04/24 11:34 12/04/24 11:34 12/04/24 11:34 12/04/24 11:34 12/04/24 11:34 12/04/24 11:34 12/01/24 14:12 Objective Labs 12/04/24 05:20 12/04/24 05:20 Labs: Laboratory Results - last 24 hr 12/04/24 05:20 WBC 5.5 RBC 3.29 L Hgb 8.6 L Hct 26.4 L MCV 80 MCH 26.1 MCHC 32.6 RDW Std Deviation 55.2 H Plt Count 81 L Neut % (Auto) 63 Lymph % (Auto) 18 [place] % (Auto) 15 H Eos % (Auto) 4 Baso % (Auto) 0 Neut # (Auto) 3.5 Lymph # (Auto) 1.0 [place] # (Auto) 0.8 Eos # (Auto) 0.2 Baso # (Auto) 0.0 Immature Gran # (Auto) 0.02 H Absolute Nucleated RBC 0.00 Immature Gran % 0 Nucleated RBC % 0 Sodium 142 Potassium 3.6 Chloride 107 Carbon Dioxide 24.7 Anion Gap 10 BUN 13 Creatinine 0.7 Estim Creat Clear Calc 68.7 eGFR > 60 BUN/Creatinine Ratio 19 Glucose 161 H Calculated Osmolality 286 Calcium 8.4 Corrected Calcium 9.0 Total Bilirubin 1.2 AST 43 H ALT 28 Alkaline Phosphatase 110 Total Protein 6.4 Albumin 3.3 L Globulin 3.1 Albumin/Globulin Ratio 1.1 L Impressions Impression: Acute upper GI bleed secondary to esophageal varices requiring band ligation of the esophageal varices In total 6 bands were put in Plan Propranolol 10 mg p.o. twice daily Follow-up in my office in 1 week ABG Interpretation ABG results: 11/30/24 05:29 ABG pH 7.43 ABG pCO2 34 ABG pO2 94 ABG HCO3 23 ABG O2 Saturation 97 ABG Base Excess -1 Assessment & Plan A&P Narrative # Acute GI bleed with melena # Acute posthemorrhagic anemia # Chronic liver disease secondary to alcohol with advanced portal hypertension workup systemic collaterals and splenomegaly with history of previous band ligation of esophageal varices on 10/21/2024 # Diabetes mellitus type 1 # Essential hypertension # Coronary artery disease status post PTCA # Hyperlipidemia Plan Clear liquid diet N.p.o. midnight tonight Consent obtained for fiberoptic esophagogastroduodenoscopy with possible therapeutic intervention possible biopsy under intravenous moderate sedation serial CBC octreotide 50 mcg IV push and then 50 mcg/h continuous infusion Protonix IV thank you very much for the opportunity to participate in the care of this patient Time Spent With Patient Time: Total time spent is greater than 50% in coordination of care (as documented) at patient's floor/unit and/or counseling patient:
[2024-12-04] MEDS: INSULIN LISPRO (AdmeLOG) 1 UNIT/0.01 ML UNIT SC (12:22)
--- NOTE | 2024-12-04 13:33 | ESDS_ITS ---
Planned Discharge Date 12/04/24 DS: Providers Provider Date of admission: 11/30/24 12:55 Primary care physician: Physician No Primary/Family Admitting Provider: Deon Carrasquillo MD Attending Provider on Admission: Santiago Avalos MD Consults: 11/30/24 14:02 Consult to Gastroenterology Routine Comment: Consulting Provider: Kerrie Ndiaye Attending Provider on DC: Santiago Avalos MD Discharging Provider: Santiago Avalos MD DS: Diagnosis Problem List Completed Was Problem List Reviewed/Reconciled?: Yes Hospital Course Hospital Course Hospital course: Reason for hospitalization: upper GI bleed Nano Chong is 74 yr female with PMH of insulin-dependent type 2 diabetes, hyperlipidemia, cirrhosis due to hx of drinking, grade III esophageal varicies with recent variceal banding, CAD s/p stents who was BIBA from [facility] on 11/30/24. Patient was transferred here for a higher [id number]. Per daughter at bedside, patient had been experiencing 2-3 episodes of vomiting. Also approximately 2 bowel movements that were dark in color. GI Dr. Ndiaye was consulted. Patient was admitted for repeat EGD for workup of upper GI bleed. Hemoglobin on admission 8.6 and remained stable during hospitalization. EGD was completed on 12/01. Findings consistent of gastritis and grade 3 esophageal varices with bleeding. Total of 6 band ligations were placed to control the bleeding. She tolerated EGD well. Patient completed octreotide drip for 5 days. She had no additional episodes of melena. Per GI recommendations, patie nt to continue low-sodium diet and start propranolol 10 mg twice daily as management for esophageal varices. Patient is now in stable condition and ready for discharge. Recommendations were given as below. Discharge Recommendations: Resume previous medications. Start propranolol 10mg twice a day as part of management for esophageal varicies. Monitor BP and propranolol if SBP<100 as this can decrease BP. Follow up with PCP in 1-2 weeks. Follow up with GI in 1 week. Hospital Diagnoses: #GI bleed #Grade III esophageal varicies s/p band ligation #Hemorrhoids #Hx cirrhosis 2/2 ETOH use #History of insulin dependent type 2 diabetes #Hx CAD s/p stents #Hx HTN #Hx HLD #Electrolyte abnormalities The patient's management plan was discussed with my attending physician Dr. Aavlos. Nazia Tapia MD, PGY-1 I discussed with and supervised the technical support internship physician who took care of this patient. I personally saw and examined the patient and discussed the assessment and plan with the entire medicine team, including my attending Dr. Bailey WATKINS. I agree with the assessment and plan as documented above. Tadeo Bustos M.D. Internal Medicine PGY-3 Time Spent with Patient Time attestation: Total time spent providing and/or coordinating discharge services: Time spent: Greater than 30 minutes Exam Vital Signs Temp Pulse Resp BP Pulse Ox O2 Del Method O2 Flow Rate 97.7 F 71 16 146/79 H 96 Room Air 2 12/04/24 11:12/04/24 11:12/04/24 11:12/04/24 11:12/04/24 11:12/04/24 11:12/01/24 14:12 Narrative Exam General: Elderly female, obese, No acute distress, cooperative HEENT: NCAT, No JVD noted. Mucosa moist. Pupils are equal and reactive to light bilaterally Cardiovascular: Normal S1 and S2. Regular rate and rhythm. Respiratory: Lungs are clear to auscultation bilaterally. No wheezing or crackles heard. Abdomen: Soft, non-tender to palpation, not distended, normal bowel sounds. Skin: Warm to touch, dry, no rashes noted Musculoskeletal: No gross injuries. Able to move all 4 extremities. No pitting edema, b/l varicose veins Neuro: Alert and oriented x3. No focal neuro deficits. Psych: Normal affect and mood Discharge Plan Plan Patient Disposition: HOME (Self Care) Patient condition on transfer: Stable Prescriptions/Referrals Prescriptions/Med Rec: New propranolol 10 mg tablet 10 mg PO BID 30 Days Qty: 60 0RF Continued metformin 500 mg tablet 500 mg PO BID Patient Comments: TAKE 1 TABLET BY MOUTH TWICE A DAY metoclopramide HCl 5 mg tablet 5 mg PO HS Patient Comments: TAKE 1 TABLET BY MOUTH BEFORE MEALS AND AT BEDTIME insulin glargine [Lantus Solostar U-100 Insulin] 100 unit/mL (3 mL) insulin pen 65 unit SUBCUT HS Patient Comments: INJECT 65 UNITS SUBCUTANEOUSLY IN THE MORNING AND 55 UNITS SUBCUTANEOUSLY AT BEDTIME simvastatin 40 mg tablet 20 mg PO HS Patient Comments: TAKE 1 TABLET BY MOUTH EVERY DAY omeprazole 40 mg capsule,delayed release(DR/EC) 40 mg PO QDAY Patient Comments: TAKE 1 CAPSULE BY MOUTH EVERY DAY isosorbide mononitrate 30 mg tablet extended release 24 hr 30 mg PO QDAY multivitamin [Daily Multi-Vitamin] Tablet 1 tab PO QAM furosemide [Lasix] 20 mg tablet 20 mg PO QAM losartan 50 mg tablet 50 mg PO QDAY Patient Comments: TAKE 1 TABLET BY MOUTH EVERY DAY FOR 90 DAYS aspirin 81 mg tablet,delayed release (DR/EC) 81 mg PO QDAY Patient Comments: TAKE 1 TABLET BY MOUTH EVERY DAY FOR 90 DAYS clopidogrel 75 mg tablet 75 mg PO QDAY Patient Comments: TAKE 1 TABLET BY MOUTH EVERY DAY FOR 90 DAYS potassium chloride 10 mEq tablet extended release 10 meq PO QDAY Discontinued atorvastatin 40 mg tablet 20 mg PO QDAY Patient Comments: TAKE 1 TABLET BY MOUTH EVERY DAY FOR 90 DAYS No Action potassium 20 mg tablet,chewable 10 mg PO QDAY Referrals: Dakota Burrows RN [Emergency Nurse] - Kerrie Ndiaye MD [Physician] - No Primary/Family,Physician [Primary Care Provider] - Patient/Caregiver Discharge Instructions Other Discharge Activity Instructions:: Resume previous medications. Start propranolol 10mg twice a day as part of management for esophageal varicies. Monitor BP and propranolol if SBP<100 as this can decrease BP. Follow up with PCP in 1-2 weeks. Follow up with GI in 1 week. Education Materials: Bleeding Gastrointestinal, Esophageal Varices Print Language: Finnish Stand Alone Forms: Sheryl Award Info., Patient Portal Info Letter Discharge Order Discharge Orders: Discharge (Routine); Ordered 12/04/24 Ordered By: Nazia Tapia Quality Discharge Quality Measures none Attestestation MD Attestation I have examined the patient, reviewed labs and imaging findings, discussed the case with the resident(s), and reviewed entered orders. I agree with the plan of care as outlined in this note. Time Spent: [address] Bailey MD
== END 2024-12-04 15:04 | disposition home or self-care (01) | DRG 432 ==
LOC: SERX 04:40 → SERHOLD 13:27 → S3SX 12-01 13:33 → SERHOLD 12-02 06:11
PROVIDERS: Specialist; Admitting Provider Internal Medicine; Emergency Provider Emergency Medicine; Visit Provider Student in an Organized Health Care Education/Training Program
PROC: 06L38CZ Occlusion of Esophageal Vein with Extraluminal Device, Via Natural or Artificial Opening Endoscopic (ICD-10-PCS; CPT 43239; principal; 2024-12-01 13:30)
DX: K70.30 Alcoholic cirrhosis of liver without ascites (principal); I85.11 Secondary esophageal varices with bleeding; D62 Acute posthemorrhagic anemia; K76.6 Portal hypertension; I25.10 Atherosclerotic heart disease of native coronary artery without angina pectoris; K29.70 Gastritis, unspecified, without bleeding; E78.5 Hyperlipidemia, unspecified; I10 Essential (primary) hypertension; K80.20 Calculus of gallbladder without cholecystitis without obstruction; K59.09 Other constipation; E11.9 Type 2 diabetes mellitus without complications; E87.6 Hypokalemia; R16.1 Splenomegaly, not elsewhere classified; F10.90 Alcohol use, unspecified, uncomplicated; K64.9 Unspecified hemorrhoids; Z95.5 Presence of coronary angioplasty implant and graft; Z79.4 Long term (current) use of insulin; Z79.84 Long term (current) use of oral hypoglycemic drugs; Z79.82 Long term (current) use of aspirin; Z79.02 Long term (current) use of antithrombotics/antiplatelets; Z79.899 Other long term (current) drug therapy; Z88.2 Allergy status to sulfonamides; Z88.0 Allergy status to penicillin; Z88.6 Allergy status to analgesic agent
CPT/HCPCS: 36415; 36600; 80053; 82140; 82803; 83036; 83735; 84100; 84484; 85025; 85610; 85730; 93005; 99285; A4217; A4649; J0360; J1200; J1815; J2250; J2354; J2470; J3010; J3490; J7030; J7050; A9270

== ENCOUNTER 2025-07-11 03:02 | Inpatient (IN) | payer MEDICARE, SELFPAY ==
[2025-07-11] VITALS (19 sets, daily range): BP systolic 103–169; BP diastolic 71–96; PULSE 76–122; RESP 13–23; TEMP 36–36.8; O2SAT 96–99; BMI 39.0; BMI 43.3
--- NOTE | 2025-07-11 03:48 | PD.EDRME ---
Rapid Medical Screening Exam [facility] Arrival date/time: 07/11/25 03:02 75F with history of DM and alcoholic cirrhosis presents to ED with daughter for brown/red emesis earlier today. Patient is also a bit more confused. Patient possibly fell yesterday and landed on her knees. Patient denies hitting head. Chief Complaint: Nausea/Vomiting/Diarrhea Vital signs: Vital Signs Temperature 98.2 F 07/11/25 03:33 Pulse Rate 95 07/11/25 03:33 Respiratory Rate 18 07/11/25 03:33 Blood Pressure 169/75 H 07/11/25 03:33 Pulse Oximetry (%) 99 07/11/25 03:33 Oxygen Delivery Method Room Air 07/11/25 03:33 Exam: Mild ab distention, but no tenderness. Normal pupil response and EOM. A/O x4. Speech intact. Clinical Impression: GIB vs hepatic encephalopathy vs vs gastritis vs gastroenteritis vs UTI
[2025-07-11] MEDS: ONDANSETRON INJ 2 MG/ML INJ 2 ML 4 MG IVP (04:44)
[2025-07-11] MEDS: OCTREOTIDE ACET INJ 50 mCg/ML VIAL IV (04:44)
[2025-07-11 04:59] LABS: Basophils # (Auto) 0.0 Thou/mm3 (0.0-0.2); Basophils % (Auto) 0 % (0-2.5); Eosinophils # (Auto) 0.1 Thou/mm3 (0.0-0.5); Eosinophils % (Auto) 2 % (0-10); Hematocrit 24.7 % (36.0-46.0); Hemoglobin 8.1 g/dL (12.0-16.0); Immature Granulocytes Auto 0.02 Thou/mm3 (0.00-0.00); Lymphocytes # (Auto) 0.6 Thou/mm3 (1.0-4.8); Lymphocytes % (Auto) 8 % (10-50); Mean Corpuscular HGB Conc 32.8 g/dl (31.0-37.0); Mean Corpuscular Hemoglobin 30.5 pg (25.0-35.0); Mean Corpuscular Volume 93 fL (80-100); Monocytes # (Auto) 0.7 Thou/mm3 (0.0-0.8); Monocytes % (Auto) 9 % (0-12); Neutrophils # (Auto) 6.1 Thou/mm3 (1.8-7.7); Neutrophils % (Auto) 80 % (37-80); Nucleated Red Blood Cell # 0.00 Thou/mm3 (0.00-0.00); Nucleated Red Blood Cell % 0 /100 WBC (0); Platelet Count 96 Thou/mm3 (140-440); RDW Standard Deviation 49.2 fL (36.4-46.3); Red Blood Count 2.66 Miln/mm3 (4.00-5.20); White Blood Count 7.5 Thou/mm3 (3.6-11.0)
[2025-07-11 05:16] LABS: INR 1.2 (0.9-1.3); Partial Thromboplastin Time 22.7 Seconds (22.0-36.0); Prothrombin Time 12.2 Seconds (9.0-12.2)
[2025-07-11 05:18] LABS: Ammonia 124 uMol/L (11-32)
[2025-07-11 05:31] LABS: Alanine Aminotransferase 41 U/L (10-49); Albumin, Serum 3.9 gm/dL (3.4-4.8); Albumin/Globulin Ratio 1.3 (1.2-2.2); Alkaline Phosphatase 104 U/L (46-116); Anion Gap 13 (7-16); Aspartate Amino Transferase 54 U/L (0-34); BUN/Creatinine Ratio 21 Ratio (12-20); Bilirubin,Total 1.2 mg/dL (0.3-1.2); Blood Urea Nitrogen 21 mg/dL (9-23); Calcium 9.3 mg/dL (8.3-10.6); Calcium (Corrected) 9.4 mg/dL (8.5-10.1); Carbon Dioxide 21.7 mMol/L (20.0-31.0); Chloride 104 mMol/L (98-107); Creatinine (Component) 1.0 mg/dL (0.6-1.3); Estimated Creatinine Clearance 49.6 mL/min (>60); Globulin 3.0 gm/dL (2.3-3.5); Glucose 209 mg/dL (74-106); Osmolality,Calculated 286 (275-295); Potassium 4.8 mMol/L (3.4-5.1); Sodium 139 mMol/L (136-145); Total Protein 6.9 gm/dL (5.7-8.2); eGFR 59 See Note
--- NOTE | 2025-07-11 06:30 | EKG_ITS ---
[facility] Test Date: 2025-07-11 Pat Name: TRE SALMERON Department: Room: - Gender: Female Architectural Examiner: : 1950 Requested By: Don Mayfield Order Number: [id number] Reading MD: Don Mayfield Measurements Intervals [place] Rate: 114 P: -88 UT: 251 QRS: 6 QRSD: 93 T: 70 QT: 336 QTc: 463 Interpretive Statements SINUS TACHYCARDIA WITH FIRST DEGREE AV BLOCK LEFT ATRIAL ENLARGEMENT [-0.15mV P-WAVE IN V1/V2] NONSPECIFIC ST & T-WAVE ABNORMALITY Compared to ECG 11/30/2024 03:04:14 First degree AV block now present Atrial abnormality now present T-wave abnormality now present Sinus rhythm no longer present Myocardial infarct finding no longer present /store/S0/[id number]/[id number].pdf
--- NOTE | 2025-07-11 06:30 | XR_ITS ---
EXAMINATION: AP chest single view TECHNIQUE: AP portable upright chest single view Date and time: July 11, 2025, 0638 hours INDICATIONS: Chest pain shortness of breath beginning today. FINDINGS: Mild prominence left ventricle Transcatheter aortic valve Moderate vascular congestion No lobar pneumonia or machelle pulmonary edema IMPRESSION: Moderate vascular congestion
[2025-07-11] MEDS: SODIUM CHLORIDE 0.9% 1000 ML 1,000 ML 999 ML IV (06:52)
[2025-07-11] MEDS: LACTULOSE SYRUP 20 GM/30 ML UDC PO (06:52)
--- NOTE | 2025-07-11 09:30 | PD.EDNV ---
Nausea/Vomit./Diarrhea-RME/HPI General Chief complaint: Nausea/Vomiting/Diarrhea Stated complaint: VOMITING Time Seen by Provider: 07/11/25 06:20 Arrival date/time: 07/11/25 03:02 Limitations: no limitations RME / HPI RME / HPI Narrative: 07/11/25 03:02 75F with history of DM and alcoholic cirrhosis presents to ED with daughter for brown/red emesis earlier today. Patient is also a bit more confused. Patient possibly fell yesterday and landed on her knees. Patient denies hitting head. DR. LARA MAIN ED EVALUATION: 75 year old female with history of CAD s/p PCI, IDDM, liver cirrhosis, grade III esophageal varices presents to the ED today following multiple episodes of small amount of coffee ground emesis this morning, no bright red blood. States since arriving to the ED, she has not had any further episodes. Denies any associated abdominal pain, hematochezia, or melena. Denies fevers, chills, sweats, chest pain, shortness of breath, diarrhea, constipation, or urinary symptoms. Denies dizziness. Daughter at bedside denies any changes to her mentation. Exam: Mild ab distention, but no tenderness. Normal pupil response and EOM. A/O x4. Speech intact. Impression: GIB vs hepatic encephalopathy vs vs gastritis vs gastroenteritis vs UTI Related Data Home Medications ?Medication ?Instructions ?Recorded ?Confirmed aspirin 81 mg tablet,delayed 81 mg PO QDAY 10/21/24 11/30/24 release furosemide 20 mg tablet (Lasix) 20 mg PO QAM 10/21/24 11/30/24 insulin glargine 100 unit/mL (3 65 unit subcut HS 10/21/24 11/30/24 mL) subcutaneous pen (Lantus Solostar U-100 Insulin) isosorbide mononitrate 30 mg 30 mg PO QDAY 10/21/24 11/30/24 tablet,extended release 24 hr losartan 50 mg tablet 50 mg PO QDAY 10/21/24 11/30/24 metformin 500 mg tablet 500 mg PO BID 10/21/24 11/30/24 metoclopramide HCl 5 mg tablet 5 mg PO HS 10/21/24 11/30/24 multivitamin (Daily Multi-Vitamin 1 tab PO QAM 10/21/24 11/30/24 tablet) omeprazole 40 mg capsule,delayed 40 mg PO QDAY 10/21/24 11/30/24 release potassium 20 mg chewable tablet 10 mg PO QDAY 10/21/24 11/30/24 simvastatin 40 mg tablet 20 mg PO HS 10/21/24 11/30/24 clopidogrel 75 mg tablet 75 mg PO QDAY 11/30/24 11/30/24 potassium chloride 10 mEq 10 meq PO QDAY 11/30/24 11/30/24 tablet,extended release Allergies Allergy/AdvReac Type Severity Reaction Status Date / Time amoxicillin Allergy Mild Rash Verified 07/11/25 03:04 ibuprofen (From Advil) Allergy Mild Rash Verified 07/11/25 03:04 naproxen (From Aleve) Allergy Mild Rash Verified 07/11/25 03:04 Penicillins Allergy Mild Rash Verified 07/11/25 03:04 Sulfa (Sulfonamide Allergy Mild Rash Verified 07/11/25 03:04 Antibiotics) Review of Systems Review of Systems Systems Reviewed: All systems reviewed, normal except as documented Past Medical History Past Medical History CARDIAC: Positive Cardiac Disorders, Hypercholesterolemia and Hypertension GASTROINTESTINAL: Positive Gastrointestinal Disorders and Cirrhosis REPRODUCTIVE: Positive Previous Pregnancies (3) ENDOCRINE: Positive Endocrine Disorders and Diabetes Mellitus Type 2 HEMATOLOGIC: Positive Blood Disorders and Anemia Surgical History SURGICAL: Positive Valve Replacement and Coronary Stent Social History SMOKING STATUS: Never smoker ED Exam General Limitations: Present no limitations General appearance: Present alert (slow to respond), in no apparent distress and obese Head Head exam: Present atraumatic, normocephalic and normal inspection Eye Eye exam: Present normal appearance, PERRL and EOMI ENT ENT exam: Present normal exam, normal oropharynx and mucous membranes moist Neck Neck exam: Present normal inspection, full ROM and trachea midline Chest Chest inspection: Present normal inspection and symmetric chest wall rise Respiratory Respiratory exam: Present normal lung sounds bilaterally Cardiovascular Cardiovascular exam: Present regular rate, normal rhythm and normal heart sounds Abdominal Exam Abdominal exam: Present soft, distention (obese) and normal bowel sounds; Absent tenderness, guarding, rebound or rigidity Extremities Exam Extremities exam: Present normal inspection and full ROM Back Exam Back exam: Present normal inspection and full ROM Neurological Exam Neurological exam: Present alert, oriented X3 and CN II-XII intact Psychiatric Psychiatric exam: Present normal affect and normal mood Skin Skin exam: Present warm, dry, intact and normal color Course Quality Measures none Orders Category Date Time Status Memorandum Statement Clerk NOW Care 07/11/25 06:30 Active Continuous Pulse Oximetry NOW Care 07/11/25 06:30 Completed EKG (ED ONLY) *Do not use* NOW Care 07/11/25 06:30 Completed Insert IV NOW Care 07/11/25 03:44 Active Insert IV NOW Care 07/11/25 06:30 Active EKG (ED Only) Stat Exams 07/11/25 06:30 Draft XR chest 1V portable Stat Exams 07/11/25 06:30 Completed Ammonia Stat Lab 07/11/25 04:45 Completed CBC Stat Lab 07/11/25 04:45 Completed CMP [Comprehensive Metabolic Panel] Stat Lab 07/11/25 04:45 Completed INR [Prothrombin Time with INR] Stat Lab 07/11/25 04:45 Completed PTT [Partial Thromboplastin Time] Stat Lab 07/11/25 04:45 Completed Type and Screen Stat Lab 07/11/25 03:10 Completed Urinalysis, C/S if Indicated Stat Lab 07/11/25 07:41 Ordered Lactulose Syrup [Enulose Syrup] Med 07/11/25 06:32 Discontinued 20 gm PO X1 ONE Octreotide Acet Inj [SandoSTATIN Inj] Med 07/11/25 03:44 Discontinued 50 mcg IV X1 ONE Ondansetron Inj [Zofran Inj] Med 07/11/25 03:44 Discontinued 4 mg IVP X1 ONE Pantoprazole Inj [Protonix Inj] Med 07/11/25 03:44 Discontinued 80 mg IVP X1 ONE Sodium Chloride 0.9% 1000 ml [Ns] 1,000 ml Med 07/11/25 06:29 Discontinued IV 999 mls/hr Oxygen Delivery NOW RT 07/11/25 06:30 Active Vital Signs Vital signs: Vital Signs Temperature 98.2 F 07/11/25 03:33 Pulse Rate 95 07/11/25 03:33 Respiratory Rate 18 07/11/25 03:33 Blood Pressure 169/75 H 07/11/25 03:33 Pulse Oximetry (%) 99 07/11/25 03:33 Oxygen Delivery Method Room Air 07/11/25 03:33 Pulse ox is 99% on room air which is adequate. Nausea/Vomiting/Diarrhea MDM Narrative MDM Narrative:: Magdalene Thrasher am scribing for and in the presence of Dr. Lara. 20a: On reassessment, patient has no complaints at this time. Patient remains clinically stable throughout the emergency department visit. We reviewed all the results, analysis, and treatment plans. Patient is amenable to admission. 927a: I spoke with GI Dr. Ndiaye. Discussed patients PMHx, HPI, ED course, exam findings, labs, and radiology results. He recommends Octreotide and Protonix, which has already been given. He agrees to consult. 929a: I spoke with hospitalist team A for admission. Discussed patients PMHx, HPI, ED course, exam findings, labs, and radiology results. The hospitalist agree to accept the patient for admission. Patient data External records reviewed:: [facility] previous records Clinical information provided by:: patient Social determinants that could affect healthcare access:: none Patient has the following chronic illnesses:: CAD s/p PCI, IDDM, liver cirrhosis, grade III esophageal varices How is presenting disease/condition affected by chronic disease/condition?: exacerbated by Evaluation data The following diagnostics were reviewed and interpreted by me:: lab results, radiology exam(s) and EKG tracing(s) (EKG @ 07:48 am, interpreted by me, sinus tachycardia with first degree AV block, left atrial enlargement, no STEMI. ) Lab and/or radiology exams considered but not ordered:: None Interpretation Summary: Ordering Physician: Don Lara MD Date of Service: 07/11/25 Procedure(s): XR chest 1V portable Accession Number(s): [id number] cc: Don Lara MD; THI NDIAYE; Bro Alexandre MD~ EXAMINATION: AP chest single view TECHNIQUE: AP portable upright chest single view Date and time: July 11, 2025, 0638 hours INDICATIONS: Chest pain shortness of breath beginning today. FINDINGS: Mild prominence left ventricle Transcatheter aortic valve Moderate vascular congestion No lobar pneumonia or machelle pulmonary edema IMPRESSION: Moderate vascular congestion Dictated By: Bro Alexandre MD Signed By: <Electronically signed by Bro Alexandre MD in OV> 07/11/25 0802 Medications / Prescriptions Medications / Prescriptions considered but not ordered:: None Medication administrations:: Medication Administration History Discontinued Medications Sodium Chloride (Ns) 1,000 mls @ 999 mls/hr IV .Q1H1M ONE Stop: 07/11/25 07:29 Last Admin: 07/11/25 06:52 Dose: 999 mls/hr Documented By: NOA Lactulose (Lactulose Syrup 20 Gm/30 Ml Udc) 20 gm PO X1 ONE; Protocol Stop: 07/11/25 06:33 Last Admin: 07/11/25 06:52 Dose: 20 gm Documented By: NOA Octreotide Acetate (Octreotide Acet Inj 50 Mcg/Ml Vial) 50 mcg IV X1 ONE Stop: 07/11/25 03:45 Last Admin: 07/11/25 04:44 Dose: 50 mcg Documented By: NOA Ondansetron HCl (Ondansetron Inj 2 Mg/Ml Inj 2 Ml) 4 mg IVP X1 ONE; Protocol Stop: 07/11/25 03:45 Last Admin: 07/11/25 04:44 Dose: 4 mg Documented By: NAO Pantoprazole Sodium (Pantoprazole Inj 40 Mg Vial) 80 mg IVP X1 ONE Stop: 07/11/25 03:45 Last Admin: 07/11/25 04:44 Dose: 80 mg Documented By: NOA See above Consultations Consultation(s) initiated? (list below): Yes Consultation #1 (Physician, Specialty, Details): See MDM Diagnosis Nausea Differential Diagnosis: food poisoning, gastroenteritis, drug-induced nausea and vomiting, dehydration and other (GI bleed) Most likely diagnosis given after review of the tests above:: GI bleed Hepatic encephalopathy Admission Indicated Admission indicated?: indicated Admission Request Was there a request for admission?: Yes Admission Attestation Admission request attestation: Discussed case with [] from Hospitalist service regarding admission. Discussed patients ED course, exam findings, labs, and radiology results. The Hospitalist [agrees,declines] to accept the patient for admission. Disposition Plan Disposition Plan: Admit Discharge Plan Plan Patient Disposition: Admit Acute Care w/in Hospital Prescriptions/Referrals Prescriptions/Med Rec: No Action metformin 500 mg tablet 500 mg PO BID Patient Comments: TAKE 1 TABLET BY MOUTH TWICE A DAY metoclopramide HCl 5 mg tablet 5 mg PO HS Patient Comments: TAKE 1 TABLET BY MOUTH BEFORE MEALS AND AT BEDTIME insulin glargine [Lantus Solostar U-100 Insulin] 100 unit/mL (3 mL) insulin pen 65 unit SUBCUT HS Patient Comments: INJECT 65 UNITS SUBCUTANEOUSLY IN THE MORNING AND 55 UNITS SUBCUTANEOUSLY AT BEDTIME simvastatin 40 mg tablet 20 mg PO HS Patient Comments: TAKE 1 TABLET BY MOUTH EVERY DAY omeprazole 40 mg capsule,delayed release(DR/EC) 40 mg PO QDAY Patient Comments: TAKE 1 CAPSULE BY MOUTH EVERY DAY isosorbide mononitrate 30 mg tablet extended release 24 hr 30 mg PO QDAY multivitamin [Daily Multi-Vitamin] Tablet 1 tab PO QAM furosemide [Lasix] 20 mg tablet 20 mg PO QAM potassium 20 mg tablet,chewable 10 mg PO QDAY losartan 50 mg tablet 50 mg PO QDAY Patient Comments: TAKE 1 TABLET BY MOUTH EVERY DAY FOR 90 DAYS aspirin 81 mg tablet,delayed release (DR/EC) 81 mg PO QDAY Patient Comments: TAKE 1 TABLET BY MOUTH EVERY DAY FOR 90 DAYS clopidogrel 75 mg tablet 75 mg PO QDAY Patient Comments: TAKE 1 TABLET BY MOUTH EVERY DAY FOR 90 DAYS potassium chloride 10 mEq tablet extended release 10 meq PO QDAY Referrals: Thi Ndiaye MD [Primary Care Provider, Gastroenterology] - In 1 week Problem List Clinical Impression: GI bleed, Hepatic encephalopathy Patient/Caregiver Discharge Instructions Print Language: British Stand Alone Forms: Sheryl Award Info., Patient Portal Info Letter
[2025-07-11 09:49] LABS: Collection Type, Urine Clean Catch
[2025-07-11 09:53] LABS: Bilirubin,Urine Negative (Negative); Blood,Urine Negative (Negative); Clarity,Urine Clear (Clear/Hazy); Color,Urine Lt-Yellow (Lt Yel-Yel); Culture Indicated,Urine Not Indicated; Glucose, Urine Negative (Negative); Ketones,Urine Negative (Negative); Leukocyte Esterase,Urine Negative (Negative); Nitrite,Urine Negative (Negative); PH,Urine 6.0 (5.0-7.0); Protein,Urine Negative (Neg - Trace); RBC,Urine < 1 /hpf (0-3); Specific Gravity,Urine 1.016 (1.001-1.035); Squamous Epithelial Cell,Urine < 1 /hpf (0-5); Urobilinogen,Urine Negative mg/dL (0.0-1.0); WBC,Urine 1 /hpf (0-5)
[2025-07-11] MEDS: cefTRIAXone/D5w 1gm IV premix 1 GM/50 ML BAG IV (11:33)
[2025-07-11] MEDS: ACETAMINOPHEN 325 MG TABLET 650 MG PO (12:15)
[2025-07-11] MEDS: OCTREOTIDE ACET INJ 1,000 MCG in SODIUM CHLORIDE 0.9% 100 ML 5.1 MCG IV (12:15)
--- NOTE | 2025-07-11 12:41 | ESHP_ITS ---
<Statement entered by Vernon Shepherd MD - 07/21/25 09:19> I reviewed above note and agree with findings and plans. I have also personally examined the patient with medicine team and went over assessment and plan with medical team including agribusiness internship and resident physician. <Statement entered by Guzman Wade MD - 07/12/25 09:49> In summary: A 75-year-old woman with a history of coronary artery disease, insulin-dependent diabetes, liver cirrhosis, and esophageal varices presented with coffee-ground emesis, likely due to upper GI bleeding from her varices. Her lab results showed anemia (Hgb 8.1) and elevated ammonia (124), suggesting hepatic encephalopathy. She is being managed with NPO status, IV Pantoprazole, Octreotide, Ceftriaxone for SBP prophylaxis, and 2 units of pRBC transfusion. Lactulose was started for hepatic encephalopathy, and GI consultation was requested. Her diabetes is being controlled with sliding scale insulin, and her chronic constipation is being monitored. Home medications will resume once she is no longer NPO for the EGD. I?ve reviewed the note and agree with this assessment and plan, with the exceptions outlined above. I personally went over the labs, imaging, home medications, and prior records, and examined the patient. The case was also reviewed with the attending physician. Please note: this document was transcribed using voice recognition technology; minor inaccuracies may be present. Guzman Wade DO PGY II Documentation for date of: 07/11/25 HPI History of Present Illness History of present illness: 75-year-old Pakistani-speaking female with a medical history of coronary artery disease status post percutaneous coronary intervention, insulin-dependent diabetes, liver cirrhosis, hyperlipidemia, chronic constipation, and grade III esophageal varices presented to the emergency department after one episode of coffee-ground emesis, but no bright red blood. The patient's history was primarily obtained through chart review and from her daughters, as the patient is a poor historian. Her daughter noted that the patient seemed confused today, which tends to occur when she is constipated. The patient's last bowel movement was on Monday, and she takes Dulcolax and a stool softener at home. The daughter also mentioned an episode of non-bloody vomit approximately three days ago. Today's vomit was brown with a dark reddish tint which prompted the daughter to take the patient to [facility]. The patient occasionally takes NSAIDs but not frequently. She denies recent illness, weight loss, or changes in appetite. There have been no changes in bowel habits recently. Denies associated abdominal pain, hematochezia, melena, fever, chills, sweats, dizziness, chest pain, shortness of breath, diarrhea, or urinary symptoms. ED Course: -Initial vitals were BP 169/75, HR 95, RR 18, 98.2F, O2 sat 99% on room air. -Labs significant for hemoglobin 8.1, hematocrit 24.7, platelet 96, BUN to creatinine ratio 21, glucose 209, AST 54, ammonia 124. Negative urinalysis. -Imaging included chest x-ray showed moderate vascular congestion. -In the ED, patient was given Pantoprazole 80 mg x 1, Ondansetron 4 mg x 1, Octreotide 50 mcg x 1, 1L NS, Lactulose 20 gm x 1, Ceftriaxone 1 g, Diphenhydramine 25 mg x 1, Past Medical History: as above Past Surgical History: CAD stents Family History: no cancers, father side positive for HTN and DM. Social History: - Smoking: none - Alcohol: history of alcohol use, stopped 1 year ago. - Illicit drugs:none - Lives at home with daughter. No smoking, no drinking. Able to complete ADLs. Current Medications: pending med recs. Allergies: Amoxicillin, ibuprofen, naproxen, sulfa cause rash. Review of Systems Review of Systems Narrative Review of Systems: All 13 review of systems are negative except as listed above in the HPI. Exam Vital Signs Temp Pulse Resp BP Pulse Ox O2 Del Method 98.3 F 85 17 148/79 H 97 Room Air 07/11/25 07:34 07/11/25 12:30 07/11/25 12:30 07/11/25 12:30 07/11/25 12:30 07/11/25 12:30 Narrative Exam Physical Exam General: Awake and alert, no acute distress. Obese habitus. HEENT: Normocephalic, atraumatic, mucous membranes moist. Heart: Regular rate and rhythm, no murmurs. Non-labored respirations, symmetric chest rise, no use of accessory muscles. Lungs: Clear to auscultation with no wheezing or crackles. Abdomen: Soft, nondistended, nontender. No guarding or rebound tenderness. Neurologic: No gross neurological deficit, and patient able to move all 4 extremities. Extremities: No edema. Skin: No rash or ecchymoses. Psychiatric: Cooperative, appropriate mood and affect. Results: Labs 07/11/25 04:45 07/11/25 04:45 Labs: Short CBC 07/11/25 Range/Units 04:45 WBC 7.5 (3.6-11.0) Thou/mm3 Hgb 8.1 L (12.0-16.0) g/dL Hct 24.7 L (36.0-46.0) % Plt Count 96 L (140-440) Thou/mm3 BMP 07/11/25 04:45 Sodium 139 Potassium 4.8 Chloride 104 Carbon Dioxide 21.7 BUN 21 Creatinine 1.0 Glucose 209 H Calcium 9.3 Liver Function 07/11/25 Range/Units 04:45 Total Bilirubin 1.2 (0.3-1.2) mg/dL AST 54 H (0-34) U/L ALT 41 (10-49) U/L Alkaline Phosphatase 104 (46-116) U/L Albumin 3.9 (3.4-4.8) gm/dL Urine 07/11/25 Range/Units 07:41 Urine Color Lt-Yellow (Lt Yel-Yel) Urine Clarity Clear (Clear/Hazy) Urine pH 6.0 (5.0-7.0) Ur Specific [place] 1.016 (1.001-1.035) Urine Protein Negative (Neg - Trace) Urine Glucose (UA) Negative (Negative) Quality Measures Quality Measures none Advance care planning discussed with:: patient Medications Home Medications and Allergies Home Medications ?Medication ?Instructions ?Recorded ?Confirmed ?Type aspirin 81 mg tablet,delayed 81 mg PO QDAY 10/21/24 History release Held on 07/11/25. Instructions: Doctor's Order furosemide 20 mg tablet (Lasix) 20 mg PO BID 10/21/24 07/11/25 History insulin glargine 100 unit/mL (3 65 unit subcut HS 10/0507/11/25 History mL) subcutaneous pen (Lantus Solostar U-100 Insulin) isosorbide mononitrate 30 mg 15 mg PO QDAY 10/21/24 History tablet,extended release 24 hr losartan 50 mg tablet 25 mg PO QDAY 10/21/2407/11 History metformin 500 mg tablet 500 mg PO BID 10/21/2407/11 History metoclopramide HCl 5 mg tablet 5 mg PO Q8H 10/21/24 History multivitamin (Daily Multi-Vitamin 1 tab PO QAM 5 07/11/25 History tablet) omeprazole 40 mg capsule,delayed 40 mg PO QDAY 5 07/11/25 History release simvastatin 40 mg tablet 20 mg PO HS 10/21/24 History clopidogrel 75 mg tablet 75 mg PO QDAY 11/30/2407/11 History potassium chloride 10 mEq 10 meq PO QDAY 11/30/2412/29 History tablet,extended release atorvastatin 40 mg tablet 40 mg PO HS 07/11/25 5 History bisacodyl 5 mg tablet,delayed 5 mg PO BID 07/11/2512/29 History release ferrous sulfate 325 mg (65 mg 325 mg PO Q OTHER DAY 07/11/25 History iron) tablet (Feosol) spironolactone 25 mg tablet 25 mg PO BID 07/11/2512/29 History Allergies Allergy/AdvReac Type Severity Reaction Status Date / Time amoxicillin Allergy Mild Rash Verified 07/11/25 03:04 ibuprofen (From Advil) Allergy Mild Rash Verified 07/11/25 03:04 naproxen (From Aleve) Allergy Mild Rash Verified 07/11/25 03:04 Penicillins Allergy Mild Rash Verified 07/11/25 03:04 Sulfa (Sulfonamide Allergy Mild Rash Verified 07/11/25 03:04 Antibiotics) Visit Medications Dextrose (Dextrose 50%-Water Inj 50 Ml Syringe) 25 ml IV Q15MIN PRN PRN Reason: BG 50-70 responsive npo pt Stop: 08/10/25 11:58 Dextrose (Dextrose 50%-Water Inj 50 Ml Syringe) 50 ml IV Q15MIN PRN PRN Reason: BG <50 OR BG <70 & pt unresponsive Stop: 08/10/25 11:58 Glucagon (Glucagon Inj 1 Mg Vial) 1 mg IM Q15MIN PRN PRN Reason: BG <70, and no IV access Ceftriaxone Sodium/Dextrose (Rocephin/D5w 1gm Iv Premix) 1 gm in 50 mls @ 100 mls/hr IV QDAY BRY Stop: 07/18/25 11:29 Last Infusion: 07/11/25 12:03 Dose: Infused Octreotide Acetate 1,000 mcg/ (Sodium Chloride) 102 mls @ 5.1 mls/hr IV .Q20H BRY; Protocol Stop: 07/16/25 11:54 Last Admin: 07/11/25 12:15 Dose: 50 mcg/hr, 5.1 mls/hr Insulin Human Lispro (Insulin Lispro (Admelog) 1 Unit/0.01 Ml Unit) 0 unit SC Q6H BRY; Protocol Stop: 08/10/25 11:59 Last Admin: 07/11/25 12:25 Dose: Not Given Lactulose (Lactulose Syrup 20 Gm/30 Ml Udc) 10 gm PO TID BRY; Protocol Stop: 08/10/25 13:59 Ondansetron HCl (Ondansetron Inj 2 Mg/Ml Inj 2 Ml) 4 mg IVP Q6HR PRN; Protocol PRN Reason: NAUSEA OR VOMITING Stop: 08/10/25 11:52 Discontinued Medications Acetaminophen (Acetaminophen 325 Mg Tablet) 650 mg PO X1 ONE Stop: 07/11/25 11:59 Last Admin: 07/11/25 12:15 Dose: 650 mg Diphenhydramine HCl (Diphenhydramine 25 Mg Capsule) 25 mg PO X1 ONE Stop: 07/11/25 11:59 Last Admin: 07/11/25 12:14 Dose: 25 mg Furosemide (Furosemide 40 Mg Tablet) 40 mg PO QDAY [facility] Stop: 08/10/25 11:59 Sodium Chloride (Ns) 1,000 mls @ 999 mls/hr IV .Q1H1M ONE Stop: 07/11/25 07:29 Last Infusion: 07/11/25 07:53 Dose: Infused Dextrose/Sodium Chloride (D5-Ns) 1,000 mls @ 100 mls/hr IV .Q10H [facility] Stop: 08/10/25 11:59 Lactulose (Lactulose Syrup 20 Gm/30 Ml Udc) 20 gm PO X1 ONE; Protocol Stop: 07/11/25 06:33 Last Admin: 07/11/25 06:52 Dose: 20 gm Octreotide Acetate (Octreotide Acet Inj 50 Mcg/Ml Vial) 50 mcg IV X1 ONE Stop: 07/11/25 03:45 Last Admin: 07/11/25 04:44 Dose: 50 mcg Ondansetron HCl (Ondansetron Inj 2 Mg/Ml Inj 2 Ml) 4 mg IVP X1 ONE; Protocol Stop: 07/11/25 03:45 Last Admin: 07/11/25 04:44 Dose: 4 mg Pantoprazole Sodium (Pantoprazole Inj 40 Mg Vial) 80 mg IVP X1 ONE Stop: 07/11/25 03:45 Last Admin: 07/11/25 04:44 Dose: 80 mg Pantoprazole Sodium (Pantoprazole Inj 40 Mg Vial) 40 mg IVP BID [facility] Stop: 08/10/25 11:59 Spironolactone (Spironolactone 25 Mg Tablet) 100 mg PO QDAY [facility] Stop: 08/10/25 11:59 Assessment & Plan Plan 75-year-old female with a past medical history of coronary artery disease status post percutaneous coronary intervention, insulin-dependent diabetes, liver cirrhosis, hyperlipidemia, chronic constipation, and grade III esophageal varices presents with coffee-ground emesis, likely secondary to upper GI bleeding from her varices. #Suspected upper GI bleed #Grade III varicies s/p band ligation #Acute blood loss anemia - Patient presented with coffee-ground emesis. - Given her liver cirrhosis, varices are at high risk for bleeding. - EGD 11/2024 showed grade III esophageal varices (banded), gastritis. - Hgb 8.1, Hct 24.7. BUN 21. Plan: * NPO. * IV Pantoprazole 80 BID. * Octretotide 50 mcg IV bolus, then 50 mcg/hr infusion. * Ceftriaxone 1g IV q24h (SBP prophylaxis). * Continue with 2 units of pRBC transfusion. * Post transfusion H&H. * Transfuse if Hgb < 8 given patient's cardiac history. * Monitor vital signs. * GI consulted, appreciate recommendations. * Holding aspirin and Plavix in setting of acute bleed and for EGD. #Hepatic encephalopathy, likely secondary to #Liver cirrhosis - Ammonia 124. - AST 54, ALT 41. Plan * Lactulose 10mg TID. * Assess for signs of improvement in mentation. * If confusion persists or worsens, may consider rifaximin. #Insulin-dependent type 2 diabetes - Glucose 209 on admission. - Hemoglobin A1c 5.7 on 11/2024. - Home medications: 65 units of insulin glargine, metformin 500 BID. Plan: * Held home medications. * Bedside blood glucose checks q6hr due to NPO. * Insulin lispro sliding scale. * Doses will be adjusted based on blood glucose readings. #Chronic constipation - Last bowel movement was 2 days ago. Plan * Monitor bowel movements. #Hx CAD s/p stents #Hx HTN #Hx HLD - Home medications: losartan 25 mg PO QD, isosorbide monitrate 15 mg PO QD, atorvastatin 40 mg PO HS. Plan: - Will resume home meds when patient is no longer NPO for EGD. Health Maintenance Disposition: tele DVT prophylaxis: Heparin 5,000 U subQ GI prophylaxis: Pantoprazole 40 mg IV BID Diet: NPO [place]: Lines: Peripheral IV CODE STATUS: FULL Patient plan of care was discussed with the senior resident, Dr. Wade, and attending physician, Dr. Shepherd . Laurence Guerrero DO PGY-1
--- NOTE | 2025-07-11 13:24 | PC.NURSE ---
patient had episode of vomiting, noted tinged red vomit,
[2025-07-11 14:08] LABS: Hepatitis A Antibody IgM Non Reactive (Non React); Hepatitis B Core Antibody IgM Non Reactive (Non React); Hepatitis B Surface Antigen Non Reactive (Non React); Hepatitis C Antibody Non Reactive (Non React)
--- NOTE | 2025-07-11 14:09 | PD.RESCONSUL ---
HPI Data of Consult Requesting Physician: Vernon Shepherd MD Admitting Provider: Vernon Shepherd MD Attending Provider: Vernon Shepherd MD Primary Care Provider: Kerrie Ndiaye MD Consult Narrative History of present illness: 75-year-old female with a history of CAD (s/p PCI), IDDM, liver cirrhosis, and grade III esophageal varices presents with one episode of coffee-ground emesis starting last night, followed by three additional episodes with bright red blood since arrival in the ED. She denies abdominal pain, hematochezia, melena, fevers, chills, sweats, chest pain, shortness of breath, diarrhea, constipation, or urinary symptoms. She has no dizziness, and her daughter at bedside notes no changes in her mentation. Past medical history: As stated above. Past surgical history: CAD stents Allergies: Amoxicillin, ibuprofen, naproxen, sulfa cause rash Family history: Noncontributory. Social history: No sig alcohol use, no smoking, no illicit drug use. GI consulted for evaluation of suspected upper GI bleed 2/2 esophageal varices. cc:: cc: Vernon Shepherd MD Exam Vital Signs Temp Pulse Resp BP Pulse Ox O2 Del Method 97.9 F 83 16 149/80 H 96 Room Air 07/11/25 13:21 07/11/25 13:21 07/11/25 13:21 07/11/25 13:21 07/11/25 13:21 07/11/25 13:21 Narrative Exam General: Confused and slow to respond, no acute distress HEENT: NC/AT, mucous membranes moist, bilateral sclera anicteric Cardiovascular: regular rate and rhythm, S1/S2 present, no murmurs appreciated Pulmonary: clear to auscultation bilaterally, no rales/rhonchi/wheezes Abdominal: soft, non-tender, distended from body habitus, no rebound/guarding, normal bowel sounds present Musculoskeletal: normal ROM, no peripheral edema Skin: warm and dry, intact, no rashes, Neuro: CN II-XII intact, no focal deficits Results Labs 07/11/25 04:45 07/11/25 04:45 Labs: Short CBC 07/11/25 Range/Units 04:45 WBC 7.5 (3.6-11.0) Thou/mm3 Hgb 8.1 L (12.0-16.0) g/dL Hct 24.7 L (36.0-46.0) % Plt Count 96 L (140-440) Thou/mm3 BMP 07/11/25 04:45 Sodium 139 Potassium 4.8 Chloride 104 Carbon Dioxide 21.7 BUN 21 Creatinine 1.0 Glucose 209 H Calcium 9.3 Liver Function 07/11/25 Range/Units 04:45 Total Bilirubin 1.2 (0.3-1.2) mg/dL AST 54 H (0-34) U/L ALT 41 (10-49) U/L Alkaline Phosphatase 104 (46-116) U/L Albumin 3.9 (3.4-4.8) gm/dL Urine 07/11/25 Range/Units 07:41 Urine Color Lt-Yellow (Lt Yel-Yel) Urine Clarity Clear (Clear/Hazy) Urine pH 6.0 (5.0-7.0) Ur Specific [place] 1.016 (1.001-1.035) Urine Protein Negative (Neg - Trace) Urine Glucose (UA) Negative (Negative) Quality Measures Quality Measures none Advance care planning discussed with:: patient Medications Home Medications and Allergies Home Medications ?Medication ?Instructions ?Recorded ?Confirmed ?Type aspirin 81 mg tablet,delayed 81 mg PO QDAY 10/21/24 11/30/24 History release furosemide 20 mg tablet (Lasix) 20 mg PO QAM 10/21/24 11/30/24 History insulin glargine 100 unit/mL (3 65 unit subcut 10/21/24 11/30/24 History mL) subcutaneous pen (Lantus Solostar U-100 Insulin) isosorbide mononitrate 30 mg 30 mg PO QDAY 10/21/24 11/30/24 History tablet,extended release 24 hr losartan 50 mg tablet 50 mg PO QDAY 10/21/24 11/30/24 History metformin 500 mg tablet 500 mg PO BID 10/21/24 11/30/24 History metoclopramide HCl 5 mg tablet 5 mg PO HS 10/21/24 11/30/24 History multivitamin (Daily Multi-Vitamin 1 tab PO QAM 10/21/24 11/30/24 History tablet) omeprazole 40 mg capsule,delayed 40 mg PO QDAY 10/21/24 11/30/24 History release potassium 20 mg chewable tablet 10 mg PO QDAY 10/21/24 11/30/24 History simvastatin 40 mg tablet 20 mg PO HS 10/21/24 11/30/24 History clopidogrel 75 mg tablet 75 mg PO QDAY 11/30/24 11/30/24 History potassium chloride 10 mEq 10 meq PO QDAY 11/30/24 11/30/24 History tablet,extended release Allergies Allergy/AdvReac Type Severity Reaction Status Date / Time amoxicillin Allergy Mild Rash Verified 07/11/25 03:04 ibuprofen (From Advil) Allergy Mild Rash Verified 07/11/25 03:04 naproxen (From Aleve) Allergy Mild Rash Verified 07/11/25 03:04 Penicillins Allergy Mild Rash Verified 07/11/25 03:04 Sulfa (Sulfonamide Allergy Mild Rash Verified 07/11/25 03:04 Antibiotics) Visit Medications Dextrose (Dextrose 50%-Water Inj 50 Ml Syringe) 25 ml IV Q15MIN PRN PRN Reason: BG 50-70 responsive npo pt Stop: 08/10/25 11:58 Dextrose (Dextrose 50%-Water Inj 50 Ml Syringe) 50 ml IV Q15MIN PRN PRN Reason: BG <50 OR BG <70 & pt unresponsive Stop: 08/10/25 11:58 Glucagon (Glucagon Inj 1 Mg Vial) 1 mg IM Q15MIN PRN PRN Reason: BG <70, and no IV access Ceftriaxone Sodium/Dextrose (Rocephin/D5w 1gm Iv Premix) 1 gm in 50 mls @ 100 mls/hr IV QDAY BRY Stop: 07/18/25 11:29 Last Infusion: 07/11/25 12:03 Dose: Infused Octreotide Acetate 1,000 mcg/ (Sodium Chloride) 102 mls @ 5.1 mls/hr IV .Q20H BRY; Protocol Stop: 07/16/25 11:54 Last Admin: 07/11/25 12:15 Dose: 50 mcg/hr, 5.1 mls/hr Insulin Human Lispro (Insulin Lispro (Admelog) 1 Unit/0.01 Ml Unit) 0 unit SC Q6H BRY; Protocol Stop: 08/10/25 11:59 Last Admin: 07/11/25 12:25 Dose: Not Given Lactulose (Lactulose Syrup 20 Gm/30 Ml Udc) 10 gm PO TID BRY; Protocol Stop: 08/10/25 13:59 Ondansetron HCl (Ondansetron Inj 2 Mg/Ml Inj 2 Ml) 4 mg IVP Q6HR PRN; Protocol PRN Reason: NAUSEA OR VOMITING Stop: 08/10/25 11:52 Discontinued Medications Acetaminophen (Acetaminophen 325 Mg Tablet) 650 mg PO X1 ONE Stop: 07/11/25 11:59 Last Admin: 07/11/25 12:15 Dose: 650 mg Diphenhydramine HCl (Diphenhydramine 25 Mg Capsule) 25 mg PO X1 ONE Stop: 07/11/25 11:59 Last Admin: 07/11/25 12:14 Dose: 25 mg Furosemide (Furosemide 40 Mg Tablet) 40 mg PO QDAY BRY Stop: 08/10/25 11:59 Sodium Chloride (Ns) 1,000 mls @ 999 mls/hr IV .Q1H1M ONE Stop: 07/11/25 07:29 Last Infusion: 07/11/25 07:53 Dose: Infused Dextrose/Sodium Chloride (D5-Ns) 1,000 mls @ 100 mls/hr IV .Q10H BRY Stop: 08/10/25 11:59 Lactulose (Lactulose Syrup 20 Gm/30 Ml Udc) 20 gm PO X1 ONE; Protocol Stop: 07/11/25 06:33 Last Admin: 07/11/25 06:52 Dose: 20 gm Octreotide Acetate (Octreotide Acet Inj 50 Mcg/Ml Vial) 50 mcg IV X1 ONE Stop: 07/11/25 03:45 Last Admin: 07/11/25 04:44 Dose: 50 mcg Ondansetron HCl (Ondansetron Inj 2 Mg/Ml Inj 2 Ml) 4 mg IVP X1 ONE; Protocol Stop: 07/11/25 03:45 Last Admin: 07/11/25 04:44 Dose: 4 mg Pantoprazole Sodium (Pantoprazole Inj 40 Mg Vial) 80 mg IVP X1 ONE Stop: 07/11/25 03:45 Last Admin: 07/11/25 04:44 Dose: 80 mg Pantoprazole Sodium (Pantoprazole Inj 40 Mg Vial) 40 mg IVP BID BRY Stop: 08/10/25 11:59 Spironolactone (Spironolactone 25 Mg Tablet) 100 mg PO QDAY [facility] Stop: 08/10/25 11:59 Assessment & Plan Plan 75-year-old female with a history of CAD (s/p PCI), IDDM, liver cirrhosis, and grade III esophageal varices presents with one episode of coffee-ground emesis starting last night, followed by three additional episodes with bright red blood since arrival in the ED. GI consulted for evaluation of suspected upper GI bleed 2/2 esophageal varices. #Suspected GI bleed, likely upper 2/2 #Esophageal varices, grade III Presents with one episode of coffee-ground emesis starting last night, followed by three additional episodes with bright red blood since arrival in the ED. Denies abdominal pain, hematochezia, melena. Last EGD performed 11/29 showed grade III esophageal varices (banded), gastritis. Hemoglobin on arrival 8.1 (baseline around 8.6 on 11/29) Patient getting 2 units pRBC transfusion Plan ? N.p.o. ? EGD consent obtained, to be performed today ? Continue octreotide drip ? Continue Protonix twice daily ? Keep hemoglobin above 8, given cardiac history Thank you for the consult. We will continue to follow the patient. Case discussed with my attending Dr. 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
[2025-07-11] MEDS: LACTULOSE SYRUP 20 GM/30 ML UDC 10 GM PO ×2 (14:43→22:04)
--- NOTE | 2025-07-11 17:42 | PC.NURSE ---
report given to rangel
[2025-07-12] VITALS (25 sets, daily range): BP systolic 131–166; BP diastolic 54–88; PULSE 72–88; RESP 12–19; TEMP 36.1–36.9; O2SAT 95–100
[2025-07-12 00:04] LABS: Hematocrit 31.5 % (36.0-46.0); Hemoglobin 10.6 g/dL (12.0-16.0)
[2025-07-12] MEDS: LACTULOSE SYRUP 20 GM/30 ML UDC 10 GM PO (05:05)
[2025-07-12 07:56] LABS: Basophils # (Auto) 0.0 Thou/mm3 (0.0-0.2); Basophils % (Auto) 0 % (0-2.5); Eosinophils # (Auto) 0.3 Thou/mm3 (0.0-0.5); Eosinophils % (Auto) 6 % (0-10); Hematocrit 31.4 % (36.0-46.0); Hemoglobin 10.4 g/dL (12.0-16.0); Immature Granulocytes Auto 0.01 Thou/mm3 (0.00-0.00); Lymphocytes # (Auto) 0.8 Thou/mm3 (1.0-4.8); Lymphocytes % (Auto) 16 % (10-50); Mean Corpuscular HGB Conc 33.1 g/dl (31.0-37.0); Mean Corpuscular Hemoglobin 30.2 pg (25.0-35.0); Mean Corpuscular Volume 91 fL (80-100); Monocytes # (Auto) 0.8 Thou/mm3 (0.0-0.8); Monocytes % (Auto) 16 % (0-12); Neutrophils # (Auto) 3.3 Thou/mm3 (1.8-7.7); Neutrophils % (Auto) 62 % (37-80); Nucleated Red Blood Cell # 0.00 Thou/mm3 (0.00-0.00); Nucleated Red Blood Cell % 0 /100 WBC (0); Platelet Count 86 Thou/mm3 (140-440); RDW Standard Deviation 50.3 fL (36.4-46.3); Red Blood Count 3.44 Miln/mm3 (4.00-5.20); White Blood Count 5.3 Thou/mm3 (3.6-11.0)
[2025-07-12] MEDS: FUROSEMIDE INJ 10 MG/ML 4ML VIAL 40 MG IVP (08:06)
[2025-07-12] MEDS: cefTRIAXone/D5w 1gm IV premix 1 GM/50 ML BAG IV (08:07)
[2025-07-12] MEDS: OCTREOTIDE ACET INJ 1,000 MCG in SODIUM CHLORIDE 0.9% 100 ML 5.1 MCG IV (08:14)
[2025-07-12 08:21] LABS: Alanine Aminotransferase 44 U/L (10-49); Albumin, Serum 3.7 gm/dL (3.4-4.8); Albumin/Globulin Ratio 1.3 (1.2-2.2); Alkaline Phosphatase 101 U/L (46-116); Anion Gap 12 (7-16); Aspartate Amino Transferase 74 U/L (0-34); BUN/Creatinine Ratio 20 Ratio (12-20); Bilirubin,Total 2.9 mg/dL (0.3-1.2); Blood Urea Nitrogen 18 mg/dL (9-23); Calcium 8.7 mg/dL (8.3-10.6); Calcium (Corrected) 8.9 mg/dL (8.5-10.1); Carbon Dioxide 23.9 mMol/L (20.0-31.0); Chloride 108 mMol/L (98-107); Creatinine (Component) 0.9 mg/dL (0.6-1.3); Estimated Creatinine Clearance 55.7 mL/min (>60); Globulin 2.8 gm/dL (2.3-3.5); Glucose 104 mg/dL (74-106); Magnesium 2.0 mg/dL (1.6-2.6); Osmolality,Calculated 288 (275-295); Phosphorous 5.0 mg/dL (2.4-5.1); Potassium 4.3 mMol/L (3.4-5.1); Sodium 144 mMol/L (136-145); Total Protein 6.5 gm/dL (5.7-8.2); eGFR > 60 See Note
--- NOTE | 2025-07-12 09:27 | ESPR_ITS ---
<Statement entered by Vernon Shepherd MD - 07/21/25 09:20> I reviewed above note and agree with findings and plans. I have also personally examined the patient with medicine team and went over assessment and plan with medical team including multicultural internship and resident physician. Documentation for date of: 07/12/25 Subjective Subjective Interval history: No acute events overnight. The patient and her son were seen at the bedside this morning. The son reports that the patient?s mentation has improved and has returned to baseline after worsening over the past two days. He also notes that the patient appears less pale today. The patient has not had a bowel movement for three days. Lactulose dosage has been increased to promote bowel movements. Patient has not had any more episodes of coffee-ground emesis since yesterday. Exam Vital Signs Temp Pulse Resp BP Pulse Ox O2 Del Method 97.3 F 82 17 149/72 H 99 Room Air 07/12/25 07:44 07/12/25 08:06 07/12/25 07:44 07/12/25 08:06 07/12/25 07:44 07/12/25 07:44 Narrative Exam Physical Exam General: Awake and alert, no acute distress. Obese habitus. HEENT: Normocephalic, atraumatic, mucous membranes moist. Heart: Regular rate and rhythm, no murmurs. Non-labored respirations, symmetric chest rise, no use of accessory muscles. Lungs: Clear to auscultation with no wheezing or crackles. Abdomen: Soft, nondistended, nontender. No guarding or rebound tenderness. Neurologic: No gross neurological deficit, and patient able to move all 4 extremities. Extremities: No edema. Skin: No rash or ecchymoses. Psychiatric: Cooperative, appropriate mood and affect. Objective Labs 07/12/25 07:35 07/12/25 07:35 Labs: Laboratory Results - last 24 hr 07/11/25 07/11/25 07/11/25 03:10 07:41 12:39 WBC RBC Hgb Hct MCV MCH MCHC RDW Std Deviation Plt Count Neut % (Auto) Lymph % (Auto) Will % (Auto) Eos % (Auto) Baso % (Auto) Neut # (Auto) Lymph # (Auto) Will # (Auto) Eos # (Auto) Baso # (Auto) Immature Gran # (Auto) Absolute Nucleated RBC Immature Gran % Nucleated RBC % Sodium Potassium Chloride Carbon Dioxide Anion Gap BUN Creatinine Estim Creat Clear Calc eGFR BUN/Creatinine Ratio Glucose Calculated Osmolality Calcium Corrected Calcium Phosphorus Magnesium Total Bilirubin AST ALT Alkaline Phosphatase Total Protein Albumin Globulin Albumin/Globulin Ratio Ur Collection Type Clean Catch Urine Color Lt-Yellow Urine Clarity Clear Urine pH 6.0 Ur Specific [place] 1.016 Urine Protein Negative Urine Glucose (UA) Negative Urine Ketones Negative Urine Blood Negative Urine Nitrite Negative Urine Bilirubin Negative Urine Urobilinogen (Auto) Negative Ur Leukocyte Esterase Negative Urine RBC < 1 Urine WBC 1 Ur Squamous Epith Cells < 1 Urine Bacteria None Ur Culture Indicated? Not Indicated Hepatitis A IgM Ab Non Reactive Hep Bs Antigen Non Reactive Hep B Core IgM Ab Non Reactive Hepatitis C Antibody Non Reactive Blood Type O Positive Antibody Screen NEGATIVE Crossmatch See Detail Blood Bank Wristband ID Yes 07/11/25 07/12/25 23:15 07:35 WBC 5.3 RBC 3.44 L Hgb 10.6 L D 10.4 L Hct 31.5 L 31.4 L MCV 91 MCH 30.2 MCHC 33.1 RDW Std Deviation 50.3 H Plt Count 86 L Neut % (Auto) 62 Lymph % (Auto) 16 Will % (Auto) 16 H Eos % (Auto) 6 Baso % (Auto) 0 Neut # (Auto) 3.3 Lymph # (Auto) 0.8 L Will # (Auto) 0.8 Eos # (Auto) 0.3 Baso # (Auto) 0.0 Immature Gran # (Auto) 0.01 H Absolute Nucleated RBC 0.00 Immature Gran % 0 Nucleated RBC % 0 Sodium 144 Potassium 4.3 D Chloride 108 H Carbon Dioxide 23.9 Anion Gap 12 BUN 18 Creatinine 0.9 Estim Creat Clear Calc 55.7 L eGFR > 60 BUN/Creatinine Ratio 20 Glucose 104 D Calculated Osmolality 288 Calcium 8.7 Corrected Calcium 8.9 Phosphorus 5.0 Magnesium 2.0 Total Bilirubin 2.9 H D AST 74 H ALT 44 Alkaline Phosphatase 101 Total Protein 6.5 Albumin 3.7 Globulin 2.8 Albumin/Globulin Ratio 1.3 Ur Collection Type Urine Color Urine Clarity Urine pH Ur Specific [place] Urine Protein Urine Glucose (UA) Urine Ketones Urine Blood Urine Nitrite Urine Bilirubin Urine Urobilinogen (Auto) Ur Leukocyte Esterase Urine RBC Urine WBC Ur Squamous Epith Cells Urine Bacteria Ur Culture Indicated? Hepatitis A IgM Ab Hep Bs Antigen Hep B Core IgM Ab Hepatitis C Antibody Blood Type Antibody Screen Crossmatch Blood Bank Wristband ID Quality Measures Quality Measures none Advance care planning discussed with:: patient Assessment & Plan Assessment Current Active Medications: Generic Name Dose Route Start Last Admin Trade Name Freq PRN Reason Stop Dose Admin Dextrose 25 ml 07/11/25 11:59 Dextrose 50%-Water Inj 50 Ml Syringe IV 08/10/25 11:58 Q15MIN PRN BG 50-70 responsive npo pt Dextrose 50 ml 07/11/25 11:59 Dextrose 50%-Water Inj 50 Ml Syringe IV 08/10/25 11:58 Q15MIN PRN BG <50 OR BG <70 & pt unresponsive Furosemide 40 mg 07/12/25 09:00 07/12/25 08:06 Furosemide Inj 10 Mg/Ml 4ml Vial IVP 08/11/25 08:59 40 mg QDAY BRY Administration Glucagon 1 mg 07/11/25 11:59 Glucagon Inj 1 Mg Vial IM Q15MIN PRN BG <70, and no IV access Ceftriaxone Sodium/Dextrose 1 gm in 50 mls @ 100 mls/hr 07/11/25 11:30 07/12/25 08:07 Rocephin/D5w 1gm Iv Premix IV 07/18/25 11:29 100 mls/hr QDAY BRY Administration Octreotide Acetate 1,000 mcg/ 102 mls @ 5.1 mls/hr 07/11/25 11:54 07/12/25 08:14 Sodium Chloride IV 07/16/25 11:54 50 mcg/hr .Q20H BRY 5.1 mls/hr Protocol Administration 50 MCG/HR Insulin Human Lispro 0 unit 07/11/25 12:00 07/12/25 05:05 Insulin Lispro (Admelog) 1 Unit/0.01 Ml Unit SC 08/10/25 11:59 Not Given Q6H BRY Protocol Lactulose 10 gm 07/11/25 14:00 07/12/25 05:05 Lactulose Syrup 20 Gm/30 Ml Udc PO 08/10/25 13:59 10 gm TID BRY Administration Protocol Ondansetron HCl 4 mg 07/11/25 11:53 Ondansetron Inj 2 Mg/Ml Inj 2 Ml IVP 08/10/25 11:52 Q6HR PRN NAUSEA OR VOMITING Protocol Pantoprazole Sodium 40 mg 07/12/25 09:00 07/12/25 08:05 Pantoprazole Inj 40 Mg Vial IVP 08/11/25 08:59 40 mg BID BRY Administration Plan 75-year-old female with a past medical history of coronary artery disease status post percutaneous coronary intervention, insulin-dependent diabetes, liver cirrhosis, hyperlipidemia, chronic constipation, and grade III esophageal varices presents with coffee-ground emesis, likely secondary to upper GI bleeding from her varices. #Acute anemia (improving) #Suspected upper GI bleed #Grade III varicies s/p band ligation - Patient presented with coffee-ground emesis. - Given her liver cirrhosis, varices are at high risk for bleeding. - EGD 11/2024 showed grade III esophageal varices (banded), gastritis. - Hgb 8.1, Hct 24.7. BUN 21. - S/p 2 units of pRBC transfusion. Plan: * NPO for EGD today. * IV Pantoprazole 80 BID. * Octretotide 50 mcg IV bolus, then 50 mcg/hr infusion. * Ceftriaxone 1g IV q24h (SBP prophylaxis), (07/11-07/18). * Transfuse if Hgb < 8 given patient's cardiac history. * Monitor vital signs. * GI consulted, appreciate recommendations. * Holding aspirin and Plavix in setting of acute bleed and for EGD. Restart after EGD. #Hepatic encephalopathy, likely secondary to (resolved) #Liver cirrhosis - Ammonia 124. - AST 54, ALT 41. Plan * Increase lactulose to 20mg TID. * Assess for signs of improvement in mentation. * If confusion persists or worsens, may consider rifaximin. #Insulin-dependent type 2 diabetes - Glucose 209 on admission. - Hemoglobin A1c 5.7 on 11/2024. - Home medications: 65 units of insulin glargine, metformin 500 BID. Plan: * Held home medications. * Bedside blood glucose checks q6hr due to NPO. * Insulin lispro sliding scale. * Doses will be adjusted based on blood glucose readings. #Chronic constipation - Last bowel movement was 2 days ago. Plan * Monitor bowel movements. #Hx CAD s/p stents #Hx HTN #Hx HLD - Home medications: losartan 25 mg PO QD, isosorbide monitrate 15 mg PO QD, atorvastatin 40 mg PO HS. Plan: - Will resume home meds when patient is no longer NPO for EGD. Health Maintenance Disposition: tele DVT prophylaxis: Heparin 5,000 U subQ GI prophylaxis: Pantoprazole 40 mg IV BID Diet: NPO [place]ck[place]: none, Purewick. Lines: Peripheral IV CODE STATUS: FULL Patient plan of care was discussed with attending physician, Dr. Shepherd . Laurence Guerrero DO PGY-1
--- NOTE | 2025-07-12 11:16 | PC.SS ---
BARKER OPERATOR conducted bedside contact with the patient conduct initial assessment and to discuss discharge planning.? At bedside with patient was daughter, Marta Jane .? Patient is Portugese speaking.? Daughter provided information for assessment and discharge planning.? Patient resides at home with daughter.? Patient does not require the use of DME to assist with ambulation. Patient does not utilize home oxygen.? Patient possesses the ability to complete ADL?s independently.? Patient?s medical surrogate decision maker is daughter, Marta Jane.? Patient?s PCP is Dr. Ndiaye.? The patient?s concrete carpenter is Jennifer Morel.? Patient also is aligned with Dr. Mcnulty, [facility].? Discharge plan is for the patient to return home at the time of discharge.? Family will provide transportation on behalf of the patient.? No discharge needs identified by the patient?s daughter.? No further intervention required at this time, social sciences department chair will be available to address any further concerns.? Next of Kin: Marta Buck D/C Plan: Home
--- NOTE | 2025-07-12 17:22 | SUR.PHASEI ---
report received from Nasrin LIAO at this time. pt asleep but responds to voice, breathing unlabored on room air. v/s stable.
--- NOTE | 2025-07-12 18:00 | SUR.PHASEI ---
pt asleep but responds to voice, breathing unlabored on room air. v/s stable. report called to Chiquis LIAO. pt will be transferred to room at this time.
[2025-07-12] MEDS: LACTULOSE SYRUP 20 GM/30 ML UDC PO (21:27)
[2025-07-13] VITALS (8 sets, daily range): BP systolic 134–164; BP diastolic 60–82; PULSE 73–80; RESP 13–22; TEMP 36–36.4; O2SAT 95–98
[2025-07-13] MEDS: OCTREOTIDE ACET INJ 1,000 MCG in SODIUM CHLORIDE 0.9% 100 ML 5.1 MCG IV (04:12)
[2025-07-13] MEDS: LACTULOSE SYRUP 20 GM/30 ML UDC PO (05:22)
[2025-07-13 05:59] LABS: Basophils # (Auto) 0.0 Thou/mm3 (0.0-0.2); Basophils % (Auto) 1 % (0-2.5); Eosinophils # (Auto) 0.3 Thou/mm3 (0.0-0.5); Eosinophils % (Auto) 6 % (0-10); Hematocrit 30.4 % (36.0-46.0); Hemoglobin 10.3 g/dL (12.0-16.0); Immature Granulocytes Auto 0.01 Thou/mm3 (0.00-0.00); Lymphocytes # (Auto) 1.0 Thou/mm3 (1.0-4.8); Lymphocytes % (Auto) 17 % (10-50); Mean Corpuscular HGB Conc 33.9 g/dl (31.0-37.0); Mean Corpuscular Hemoglobin 30.6 pg (25.0-35.0); Mean Corpuscular Volume 90 fL (80-100); Monocytes # (Auto) 1.0 Thou/mm3 (0.0-0.8); Monocytes % (Auto) 17 % (0-12); Neutrophils # (Auto) 3.2 Thou/mm3 (1.8-7.7); Neutrophils % (Auto) 59 % (37-80); Nucleated Red Blood Cell # 0.00 Thou/mm3 (0.00-0.00); Nucleated Red Blood Cell % 0 /100 WBC (0); Platelet Count 81 Thou/mm3 (140-440); RDW Standard Deviation 48.0 fL (36.4-46.3); Red Blood Count 3.37 Miln/mm3 (4.00-5.20); White Blood Count 5.5 Thou/mm3 (3.6-11.0)
[2025-07-13 06:36] LABS: Alanine Aminotransferase 43 U/L (10-49); Albumin, Serum 3.4 gm/dL (3.4-4.8); Albumin/Globulin Ratio 1.1 (1.2-2.2); Alkaline Phosphatase 101 U/L (46-116); Anion Gap 12 (7-16); Aspartate Amino Transferase 67 U/L (0-34); BUN/Creatinine Ratio 23 Ratio (12-20); Bilirubin,Total 1.7 mg/dL (0.3-1.2); Blood Urea Nitrogen 23 mg/dL (9-23); Calcium 8.7 mg/dL (8.3-10.6); Calcium (Corrected) 9.2 mg/dL (8.5-10.1); Carbon Dioxide 25.1 mMol/L (20.0-31.0); Chloride 107 mMol/L (98-107); Creatinine (Component) 1.0 mg/dL (0.6-1.3); Estimated Creatinine Clearance 49.3 mL/min (>60); Globulin 3.0 gm/dL (2.3-3.5); Glucose 150 mg/dL (74-106); Magnesium 2.0 mg/dL (1.6-2.6); Osmolality,Calculated 293 (275-295); Phosphorous 4.7 mg/dL (2.4-5.1); Potassium 3.8 mMol/L (3.4-5.1); Sodium 144 mMol/L (136-145); Total Protein 6.4 gm/dL (5.7-8.2); eGFR 59 See Note
[2025-07-13] MEDS: FUROSEMIDE INJ 10 MG/ML 4ML VIAL 40 MG IVP (09:08)
[2025-07-13] MEDS: ASPIRIN EC 81 MG TABEC PO (09:08)
[2025-07-13] MEDS: cefTRIAXone/D5w 1gm IV premix 1 GM/50 ML BAG IV (09:08)
[2025-07-13] MEDS: CLOPIDOGREL BISULFATE 75 MG TABLET PO (09:08)
[2025-07-13] MEDS: LACTULOSE SYRUP 20 GM/30 ML UDC 30 GM PO ×2 (11:33→21:28)
[2025-07-13] MEDS: INSULIN LISPRO (AdmeLOG) 1 UNIT/0.01 ML UNIT SC ×2 (11:41→17:12)
--- NOTE | 2025-07-13 14:44 | ESPR_ITS ---
<Statement entered by Vernon Shepherd MD - 07/21/25 09:24> I reviewed above note and agree with findings and plans. I have also personally examined the patient with medicine team and went over assessment and plan with medical team including international coordinator and resident physician. Documentation for date of: 07/13/25 Subjective Subjective Interval history: No acute overnight events. Had EGD yesterday showing bleeding grade 3 variceal bleeds which were banded. Will continue on OCTREOTIDE until 07/17. GI okay with resuming PLAVIX and ASPIRIN. Otherwise feels okay. No bowel movement yet and restarted bowel regiment. Encourage ambulation in room. And will have PT evaluation tomorrow morning. Labs and vitals reviewed. Exam Vital Signs Temp Pulse Resp BP Pulse Ox O2 Del Method O2 Flow Rate 97.5 F 79 22 H 146/60 H 95 Room Air 3 07/13/25 12:00 07/13/25 12:00 07/13/25 12:00 07/13/25 12:00 07/13/25 12:00 07/13/25 12:00 07/13/25 07:41 Narrative Exam Physical Exam General: Awake and alert, no acute distress. Obese habitus. HEENT: Normocephalic, atraumatic, mucous membranes moist. Heart: Regular rate and rhythm, no murmurs. Non-labored respirations, symmetric chest rise, no use of accessory muscles. Lungs: Clear to auscultation with no wheezing or crackles. Abdomen: Soft, nondistended, nontender. No guarding or rebound tenderness. Neurologic: No gross neurological deficit, and patient able to move all 4 extremities. Extremities: No edema. Skin: No rash or ecchymoses. Psychiatric: Cooperative, appropriate mood and affect. Objective Labs 07/13/25 04:22 07/13/25 04:22 Labs: Laboratory Results - last 24 hr 07/13/25 04:22 WBC 5.5 RBC 3.37 L Hgb 10.3 L Hct 30.4 L MCV 90 MCH 30.6 MCHC 33.9 RDW Std Deviation 48.0 H Plt Count 81 L Neut % (Auto) 59 Lymph % (Auto) 17 [place] % (Auto) 17 H Eos % (Auto) 6 Baso % (Auto) 1 Neut # (Auto) 3.2 Lymph # (Auto) 1.0 [place] # (Auto) 1.0 H Eos # (Auto) 0.3 Baso # (Auto) 0.0 Immature Gran # (Auto) 0.01 H Absolute Nucleated RBC 0.00 Immature Gran % 0 Nucleated RBC % 0 Sodium 144 Potassium 3.8 D Chloride 107 Carbon Dioxide 25.1 Anion Gap 12 BUN 23 Creatinine 1.0 Estim Creat Clear Calc 49.3 L eGFR 59 L BUN/Creatinine Ratio 23 H Glucose 150 H Calculated Osmolality 293 Calcium 8.7 Corrected Calcium 9.2 Phosphorus 4.7 Magnesium 2.0 Total Bilirubin 1.7 H D AST 67 H ALT 43 Alkaline Phosphatase 101 Total Protein 6.4 Albumin 3.4 Globulin 3.0 Albumin/Globulin Ratio 1.1 L Quality Measures Quality Measures none Advance care planning discussed with:: patient Assessment & Plan Assessment Current Active Medications: Generic Name Dose Route Start Last Admin Trade Name Freq PRN Reason Stop Dose Admin Aspirin 81 mg 07/13/25 09:00 07/13/25 09:08 Aspirin Ec 81 Mg Tabec PO 08/12/25 08:59 81 mg QDAY BRY Administration Clopidogrel Bisulfate 75 mg 07/13/25 09:00 07/13/25 09:08 Clopidogrel Bisulfate 75 Mg Tablet PO 08/12/25 08:59 75 mg QDAY BRY Administration Dextrose 25 ml 07/11/25 11:59 Dextrose 50%-Water Inj 50 Ml Syringe IV 08/10/25 11:58 Q15MIN PRN BG 50-70 responsive npo pt Dextrose 50 ml 07/11/25 11:59 Dextrose 50%-Water Inj 50 Ml Syringe IV 08/10/25 11:58 Q15MIN PRN BG <50 OR BG <70 & pt unresponsive Furosemide 40 mg 07/12/25 09:00 07/13/25 09:08 Furosemide Inj 10 Mg/Ml 4ml Vial IVP 08/11/25 08:59 40 mg QDAY BRY Administration Glucagon 1 mg 07/11/25 11:59 Glucagon Inj 1 Mg Vial IM Q15MIN PRN BG <70, and no IV access Ceftriaxone Sodium/Dextrose 1 gm in 50 mls @ 100 mls/hr 07/11/25 11:30 07/13/25 09:08 Rocephin/D5w 1gm Iv Premix IV 07/18/25 11:29 100 mls/hr QDAY BRY Administration Octreotide Acetate 1,000 mcg/ 102 mls @ 5.1 mls/hr 07/13/25 04:15 07/13/25 04:12 Sodium Chloride IV 07/16/25 12:14 50 mcg/hr .Q20H BRY 5.1 mls/hr Protocol Administration 50 MCG/HR Insulin Human Lispro 0 unit 07/11/25 12:00 07/13/25 11:41 Insulin Lispro (Admelog) 1 Unit/0.01 Ml Unit SC 08/10/25 11:59 3 unit Q6H BRY Administration Protocol Lactulose 30 gm 07/13/25 10:15 07/13/25 14:31 Lactulose Syrup 20 Gm/30 Ml Udc PO 08/12/25 10:14 Not Given TID BRY Protocol Ondansetron HCl 4 mg 07/11/25 11:53 Ondansetron Inj 2 Mg/Ml Inj 2 Ml IVP 08/10/25 11:52 Q6HR PRN NAUSEA OR VOMITING Protocol Pantoprazole Sodium 40 mg 07/12/25 09:00 07/13/25 09:09 Pantoprazole Inj 40 Mg Vial IVP 08/11/25 08:59 40 mg BID BRY Administration Plan 75-year-old female with a past medical history of coronary artery disease status post percutaneous coronary intervention, insulin-dependent diabetes, liver cirrhosis, hyperlipidemia, chronic constipation, and grade III esophageal varices presents with coffee-ground emesis, likely secondary to upper GI bleeding from her varices. #Acute anemia (improving) #Suspected upper GI bleed #Grade III varicies s/p band ligation - Patient presented with coffee-ground emesis. - Given her liver cirrhosis, varices are at high risk for bleeding. - EGD 07/13 redemonstrated grade 3 disease with active bleed which were banded. ? GI okay with resuming ASPIRIN and PLAVIX. - Hgb 8.1, Hct 24.7. BUN 21. - S/p 2 units of pRBC transfusion. Plan: * NPO for EGD today. * IV Pantoprazole 80 BID. * Octretotide GGT until 07/17 * Ceftriaxone 1g IV q24h (SBP prophylaxis), (07/11-07/18). * Transfuse if Hgb < 8 given patient's cardiac history. * Monitor vital signs. * GI consulted, appreciate recommendations. * Holding aspirin and Plavix in setting of acute bleed and for EGD. Restart after EGD. #Hepatic encephalopathy, likely secondary to (resolved) #Liver cirrhosis - Ammonia 124. - AST 54, ALT 41. Plan * Increase lactulose to 20mg TID. * Assess for signs of improvement in mentation. * If confusion persists or worsens, may consider rifaximin. #Insulin-dependent type 2 diabetes - Glucose 209 on admission. - Hemoglobin A1c 5.7 on 11/2024. - Home medications: 65 units of insulin glargine, metformin 500 BID. Plan: * Held home medications. * Bedside blood glucose checks q6hr due to NPO. * Insulin lispro sliding scale. * Doses will be adjusted based on blood glucose readings. #Chronic constipation - Last bowel movement was 2 days ago. Plan * Monitor bowel movements. #Hx CAD s/p stents #Hx HTN #Hx HLD - Home medications: losartan 25 mg PO QD, isosorbide monitrate 15 mg PO QD, atorvastatin 40 mg PO HS. Plan: - Will resume home meds when patient is no longer NPO for EGD. ? Resumed PLAVIX and ASPIRIN Health Maintenance Disposition: tele DVT prophylaxis: Heparin 5,000 U subQ GI prophylaxis: Pantoprazole 40 mg IV BID Diet: NPO [place]: none, [place]. Lines: Peripheral IV CODE STATUS: FULL Case was discussed with attending physician. Guzman Wade DO PGY II This document was transcribed using voice recognition technology. Minor inaccuracies may be present.
--- NOTE | 2025-07-13 17:36 | PD.IMPROG ---
Documentation for date of: 07/13/25 Subjective Subjective Interval history: Patient evaluated hemoglobin hematocrit 10.3 and 30.4 on octreotide infusion Exam Vital Signs Temp Pulse Resp BP Pulse Ox O2 Del Method O2 Flow Rate 96.8 F 76 18 157/82 H 95 Room Air 3 07/13/25 16:00 07/13/25 16:00 07/13/25 16:00 07/13/25 16:00 07/13/25 16:00 07/13/25 16:00 07/13/25 07:41 Objective Labs 07/13/25 04:22 07/13/25 04:22 Labs: Laboratory Results - last 24 hr 07/13/25 04:22 WBC 5.5 RBC 3.37 L Hgb 10.3 L Hct 30.4 L MCV 90 MCH 30.6 MCHC 33.9 RDW Std Deviation 48.0 H Plt Count 81 L Neut % (Auto) 59 Lymph % (Auto) 17 [place] % (Auto) 17 H Eos % (Auto) 6 Baso % (Auto) 1 Neut # (Auto) 3.2 Lymph # (Auto) 1.0 [place] # (Auto) 1.0 H Eos # (Auto) 0.3 Baso # (Auto) 0.0 Immature Gran # (Auto) 0.01 H Absolute Nucleated RBC 0.00 Immature Gran % 0 Nucleated RBC % 0 Sodium 144 Potassium 3.8 D Chloride 107 Carbon Dioxide 25.1 Anion Gap 12 BUN 23 Creatinine 1.0 Estim Creat Clear Calc 49.3 L eGFR 59 L BUN/Creatinine Ratio 23 H Glucose 150 H Calculated Osmolality 293 Calcium 8.7 Corrected Calcium 9.2 Phosphorus 4.7 Magnesium 2.0 Total Bilirubin 1.7 H D AST 67 H ALT 43 Alkaline Phosphatase 101 Total Protein 6.4 Albumin 3.4 Globulin 3.0 Albumin/Globulin Ratio 1.1 L Impressions Impression: Esophageal variceal bleeding requiring esophageal variceal band ligation continue current management hypertensive portal gastropathy with mucosal oozing of blood Assessment & Plan Time Spent With Patient Time: Total time spent is greater than 50% in coordination of care (as documented) at patient's floor/unit and/or counseling patient:
[2025-07-14] VITALS (8 sets, daily range): BP systolic 121–154; BP diastolic 61–77; PULSE 69–87; RESP 12–17; TEMP 36.2–36.8; O2SAT 95–99; BMI 38.7; BMI 38.9
[2025-07-14] MEDS: INSULIN LISPRO (AdmeLOG) 1 UNIT/0.01 ML UNIT SC ×5 (00:21→23:57)
[2025-07-14] MEDS: LACTULOSE SYRUP 20 GM/30 ML UDC 30 GM PO ×2 (05:39→21:31)
[2025-07-14] MEDS: OCTREOTIDE ACET INJ 1,000 MCG in SODIUM CHLORIDE 0.9% 100 ML 5.1 MCG IV ×2 (05:40→23:44)
[2025-07-14 06:41] LABS: Basophils # (Auto) 0.0 Thou/mm3 (0.0-0.2); Basophils % (Auto) 0 % (0-2.5); Eosinophils # (Auto) 0.4 Thou/mm3 (0.0-0.5); Eosinophils % (Auto) 5 % (0-10); Hematocrit 31.3 % (36.0-46.0); Hemoglobin 10.7 g/dL (12.0-16.0); Immature Granulocytes Auto 0.01 Thou/mm3 (0.00-0.00); Lymphocytes # (Auto) 0.8 Thou/mm3 (1.0-4.8); Lymphocytes % (Auto) 10 % (10-50); Mean Corpuscular HGB Conc 34.2 g/dl (31.0-37.0); Mean Corpuscular Hemoglobin 30.9 pg (25.0-35.0); Mean Corpuscular Volume 91 fL (80-100); Monocytes # (Auto) 1.3 Thou/mm3 (0.0-0.8); Monocytes % (Auto) 17 % (0-12); Neutrophils # (Auto) 5.4 Thou/mm3 (1.8-7.7); Neutrophils % (Auto) 67 % (37-80); Nucleated Red Blood Cell # 0.00 Thou/mm3 (0.00-0.00); Nucleated Red Blood Cell % 0 /100 WBC (0); Platelet Count 91 Thou/mm3 (140-440); RDW Standard Deviation 46.7 fL (36.4-46.3); Red Blood Count 3.46 Miln/mm3 (4.00-5.20); White Blood Count 8.0 Thou/mm3 (3.6-11.0)
[2025-07-14 07:22] LABS: Alanine Aminotransferase 43 U/L (10-49); Albumin, Serum 3.4 gm/dL (3.4-4.8); Albumin/Globulin Ratio 1.1 (1.2-2.2); Alkaline Phosphatase 101 U/L (46-116); Anion Gap 10 (7-16); Aspartate Amino Transferase 59 U/L (0-34); BUN/Creatinine Ratio 20 Ratio (12-20); Bilirubin,Total 1.7 mg/dL (0.3-1.2); Blood Urea Nitrogen 22 mg/dL (9-23); Calcium 8.8 mg/dL (8.3-10.6); Calcium (Corrected) 9.3 mg/dL (8.5-10.1); Carbon Dioxide 25.5 mMol/L (20.0-31.0); Chloride 107 mMol/L (98-107); Creatinine (Component) 1.1 mg/dL (0.6-1.3); Estimated Creatinine Clearance 44.8 mL/min (>60); Globulin 3.1 gm/dL (2.3-3.5); Glucose 200 mg/dL (74-106); Magnesium 1.7 mg/dL (1.6-2.6); Osmolality,Calculated 292 (275-295); Phosphorous 3.9 mg/dL (2.4-5.1); Potassium 3.9 mMol/L (3.4-5.1); Sodium 142 mMol/L (136-145); Total Protein 6.5 gm/dL (5.7-8.2); eGFR 53 See Note
[2025-07-14] MEDS: cefTRIAXone/D5w 1gm IV premix 1 GM/50 ML BAG IV (08:23)
[2025-07-14] MEDS: ASPIRIN EC 81 MG TABEC PO (08:23)
[2025-07-14] MEDS: CLOPIDOGREL BISULFATE 75 MG TABLET PO (08:23)
[2025-07-14] MEDS: INSULIN DEGLUDEC 5 UNIT/0.05 ML (PER 5 UNITS) 10 UNIT SC (08:24)
[2025-07-14] MEDS: FUROSEMIDE INJ 10 MG/ML 4ML VIAL 40 MG IVP (08:38)
--- NOTE | 2025-07-14 11:52 | ESPR_ITS ---
Documentation for date of: 07/14/25 Subjective Subjective Interval history: Patient evaluated Hemoglobin hematocrit 10.7 and 31.3 Patient status post band ligation of the esophageal varices Exam Vital Signs Temp Pulse Resp BP Pulse Ox O2 Del Method O2 Flow Rate 98.3 F 76 12 142/77 H 97 Room Air 2 07/14/25 08:00 07/14/25 08:38 07/14/25 08:00 07/14/25 08:38 07/14/25 08:00 07/14/25 08:00 07/14/25 04:00 Objective Labs 07/14/25 06:14 07/14/25 06:14 Labs: Laboratory Results - last 24 hr 07/14/25 06:14 WBC 8.0 D RBC 3.46 L Hgb 10.7 L Hct 31.3 L MCV 91 MCH 30.9 MCHC 34.2 RDW Std Deviation 46.7 H Plt Count 91 L Neut % (Auto) 67 Lymph % (Auto) 10 [place] % (Auto) 17 H Eos % (Auto) 5 Baso % (Auto) 0 Neut # (Auto) 5.4 Lymph # (Auto) 0.8 L [place] # (Auto) 1.3 H Eos # (Auto) 0.4 Baso # (Auto) 0.0 Immature Gran # (Auto) 0.01 H Absolute Nucleated RBC 0.00 Immature Gran % 0 Nucleated RBC % 0 Sodium 142 Potassium 3.9 Chloride 107 Carbon Dioxide 25.5 Anion Gap 10 BUN 22 Creatinine 1.1 Estim Creat Clear Calc 44.8 L eGFR 53 L BUN/Creatinine Ratio 20 Glucose 200 H D Calculated Osmolality 292 Calcium 8.8 Corrected Calcium 9.3 Phosphorus 3.9 Magnesium 1.7 Total Bilirubin 1.7 H AST 59 H ALT 43 Alkaline Phosphatase 101 Total Protein 6.5 Albumin 3.4 Globulin 3.1 Albumin/Globulin Ratio 1.1 L Impressions Impression: Upper GI bleeding secondary to esophageal variceal bleeding requiring band ligation Stable hemoglobin hematocrit Continue octreotide infusion and patient can be discharged home tomorrow Assessment & Plan Time Spent With Patient Time: Total time spent is greater than 50% in coordination of care (as documented) at patient's floor/unit and/or counseling patient:
--- NOTE | 2025-07-14 11:58 | ESPR_ITS ---
<Statement entered by Vernon Shepherd MD - 07/26/25 09:23> I reviewed above note and agree with findings and plans. I have also personally examined the patient with medicine team and went over assessment and plan with medical team including development intern and resident physician. <Statement entered by Earnest Pleitez MD - 07/14/25 17:59> Patient was examined and case was reviewed with team including attending physician. Note reviewed, I agree with most of its contents and agree with the patient's care as documented by Dr. Guerrero Patient seen today at the bedside found awake, alert, in no acute distress. Vitals and labs reviewed. Hg stable at this time at 10.7. Patient had EGD done showing bleeding grade 3 variceal bleeds which were banded and is currently on octreotide drip through 07/17 or as per gastroenterology recommendations. GI is agreeable with resuming aspirin and plavix at this time. Physical therapy has evaluated the patient who determined the patient can be discharged HOME when medically cleared. Case discussed with my attending Dr. Cora Pleitez MD PGY-2 Documentation for date of: 07/14/25 Subjective Subjective Interval history: No acute events overnight. Patient was evaluated at the bedside this morning. She reports having a bowel movement earlier today. Her diet has been adjusted to a low carb consistent to improve glycemic control. She will continue octreotide therapy through 07/17. Physical therapy evaluation was completed this morning. Exam Vital Signs Temp Pulse Resp BP Pulse Ox O2 Del Method O2 Flow Rate 98.3 F 76 12 142/77 H 97 Room Air 2 07/14/25 08:00 07/14/25 08:38 07/14/25 08:00 07/14/25 08:38 07/14/25 08:00 07/14/25 08:00 07/14/25 04:00 Narrative Exam Physical Exam General: Awake and alert, no acute distress. Obese habitus. HEENT: Normocephalic, atraumatic, mucous membranes moist. Heart: Regular rate and rhythm, no murmurs. Non-labored respirations, symmetric chest rise, no use of accessory muscles. Lungs: Clear to auscultation with no wheezing or crackles. Abdomen: Soft, nondistended, nontender. No guarding or rebound tenderness. Neurologic: No gross neurological deficit, and patient able to move all 4 extremities. Extremities: No edema. Skin: No rash or ecchymoses. Psychiatric: Cooperative, appropriate mood and affect. Objective Labs 07/14/25 06:14 07/14/25 06:14 Labs: Laboratory Results - last 24 hr 07/14/25 06:14 WBC 8.0 D RBC 3.46 L Hgb 10.7 L Hct 31.3 L MCV 91 MCH 30.9 MCHC 34.2 RDW Std Deviation 46.7 H Plt Count 91 L Neut % (Auto) 67 Lymph % (Auto) 10 [place] % (Auto) 17 H Eos % (Auto) 5 Baso % (Auto) 0 Neut # (Auto) 5.4 Lymph # (Auto) 0.8 L [place] # (Auto) 1.3 H Eos # (Auto) 0.4 Baso # (Auto) 0.0 Immature Gran # (Auto) 0.01 H Absolute Nucleated RBC 0.00 Immature Gran % 0 Nucleated RBC % 0 Sodium 142 Potassium 3.9 Chloride 107 Carbon Dioxide 25.5 Anion Gap 10 BUN 22 Creatinine 1.1 Estim Creat Clear Calc 44.8 L eGFR 53 L BUN/Creatinine Ratio 20 Glucose 200 H D Calculated Osmolality 292 Calcium 8.8 Corrected Calcium 9.3 Phosphorus 3.9 Magnesium 1.7 Total Bilirubin 1.7 H AST 59 H ALT 43 Alkaline Phosphatase 101 Total Protein 6.5 Albumin 3.4 Globulin 3.1 Albumin/Globulin Ratio 1.1 L Quality Measures Quality Measures none Advance care planning discussed with:: patient Assessment & Plan Assessment Current Active Medications: Generic Name Dose Route Start Last Admin Trade Name Freq PRN Reason Stop Dose Admin Aspirin 81 mg 07/13/25 09:00 07/14/25 08:23 Aspirin Ec 81 Mg Tabec PO 08/12/25 08:59 81 mg QDAY BRY Administration Clopidogrel Bisulfate 75 mg 07/13/25 09:00 07/14/25 08:23 Clopidogrel Bisulfate 75 Mg Tablet PO 08/12/25 08:59 75 mg QDAY BRY Administration Dextrose 25 ml 07/11/25 11:59 Dextrose 50%-Water Inj 50 Ml Syringe IV 08/10/25 11:58 Q15MIN PRN BG 50-70 responsive npo pt Dextrose 50 ml 07/11/25 11:59 Dextrose 50%-Water Inj 50 Ml Syringe IV 08/10/25 11:58 Q15MIN PRN BG <50 OR BG <70 & pt unresponsive Furosemide 40 mg 07/12/25 09:00 07/14/25 08:38 Furosemide Inj 10 Mg/Ml 4ml Vial IVP 08/11/25 08:59 40 mg QDAY BRY Administration Glucagon 1 mg 07/11/25 11:59 Glucagon Inj 1 Mg Vial IM Q15MIN PRN BG <70, and no IV access Ceftriaxone Sodium/Dextrose 1 gm in 50 mls @ 100 mls/hr 07/11/25 11:30 07/14/25 08:23 Rocephin/D5w 1gm Iv Premix IV 07/18/25 11:29 100 mls/hr QDAY BRY Administration Octreotide Acetate 1,000 mcg/ 102 mls @ 5.1 mls/hr 07/13/25 04:15 07/14/25 05:40 Sodium Chloride IV 07/16/25 12:14 50 mcg/hr .Q20H BRY 5.1 mls/hr Protocol Administration 50 MCG/HR Insulin Degludec 10 unit 07/14/25 09:00 07/14/25 08:24 Insulin Degludec 5 Unit/0.05 Ml (Per 5 Units) SC 08/13/25 08:59 10 unit QDAY BRY Administration Insulin Human Lispro 0 unit 07/11/25 12:00 07/14/25 05:33 Insulin Lispro (Admelog) 1 Unit/0.01 Ml Unit SC 08/10/25 11:59 1 unit Q6H BRY Administration Protocol Lactulose 30 gm 07/13/25 10:15 07/14/25 05:39 Lactulose Syrup 20 Gm/30 Ml Udc PO 08/12/25 10:14 30 gm TID BRY Administration Protocol Ondansetron HCl 4 mg 07/11/25 11:53 Ondansetron Inj 2 Mg/Ml Inj 2 Ml IVP 08/10/25 11:52 Q6HR PRN NAUSEA OR VOMITING Protocol Pantoprazole Sodium 40 mg 07/12/25 09:00 07/14/25 08:23 Pantoprazole Inj 40 Mg Vial IVP 08/11/25 08:59 40 mg BID BRY Administration Plan 75-year-old female with a past medical history of coronary artery disease status post percutaneous coronary intervention, insulin-dependent diabetes, liver cirrhosis, hyperlipidemia, chronic constipation, and grade III esophageal varices presents with coffee-ground emesis, likely secondary to upper GI bleeding from her varices. #Acute anemia (stable) #Upper GI bleed #Grade III varicies s/p band ligation #Hypertensive portal gastropathy - Patient presented with coffee-ground emesis. - Given her liver cirrhosis, varices are at high risk for bleeding. - EGD 11/2024 showed grade III esophageal varices (banded), gastritis. - Hgb 8.1, Hct 24.7. BUN 21. - S/p 2 units of pRBC transfusion. - EGD 07/2025 showed grade III esophageal - banded. Plan: * IV Pantoprazole 40 BID. * Octretotide drip until 07/17. * Ceftriaxone 1g IV q24h (SBP prophylaxis), (07/11-07/18). * Transfuse if Hgb < 8 given patient's cardiac history. * Monitor vital signs. * GI consulted, appreciate recommendations. * Repeat endoscopy in 4-6 weeks for repeat band ligation of the remaining esophageal varices. #Hepatic encephalopathy, likely secondary to (resolved) #Liver cirrhosis - Ammonia 124. - AST 54, ALT 41. Plan * Increase lactulose to 30mg TID. * Assess for signs of improvement in mentation. * If confusion persists or worsens, may consider rifaximin. #Insulin-dependent type 2 diabetes - Glucose 209 on admission. - Hemoglobin A1c 5.7 on 11/2024. - Home medications: 65 units of insulin glargine, metformin 500 BID. Plan: * Added insulin degludec 10 units for better blood glucose control . * Changed diet to carb consistent low. * Held home medications. * Bedside blood glucose checks q6hr due to NPO. * Insulin lispro sliding scale. * Doses will be adjusted based on blood glucose readings. #Chronic constipation - Last bowel movement was this morning (07/14) Plan * Monitor bowel movements. * Increase lactulose to 30mg TID. #Hx CAD s/p stents #Hx HTN #Hx HLD - Home medications: losartan 25 mg PO QD, isosorbide monitrate 15 mg PO QD, atorvastatin 40 mg PO HS. Plan: * Aspirin 81 mg PO QD. * Plavix 75 mg PO QD. * Resumed losartan 25 mg PO QD. * Resumed atorvastatin 40 mg PO HS. Health Maintenance Disposition: tele DVT prophylaxis: Heparin drip GI prophylaxis: Pantoprazole 40 mg IV BID Diet: carb consistent low [place]: none Lines: Peripheral IV CODE STATUS: FULL Patient plan of care was discussed with attending physician, Dr. Shepherd and senior resident, Dr. Kenton Pleitez. Laurence Guerrero DO PGY-1
[2025-07-14] MEDS: LOSARTAN POTASSIUM 25 MG TABLET PO (13:42)
--- NOTE | 2025-07-14 14:19 | PC.PT ---
PT eval only. Patient is I with transfers and ambulation without AD. Daughter at bedside.
[2025-07-14] MEDS: ATORVASTATIN CALCIUM 20 MG TABLET 40 MG PO (21:22)
[2025-07-15] VITALS: BP 126/68; PULSE 70; PULSE 71; RESP 12; TEMP 36.1; O2SAT 95
[2025-07-15 04:00] VITALS: BP 115/64; PULSE 76; PULSE 77; RESP 18; TEMP 36.1; O2SAT 94
[2025-07-15 05:14] LABS: Basophils # (Auto) 0.0 Thou/mm3 (0.0-0.2); Basophils % (Auto) 0 % (0-2.5); Eosinophils # (Auto) 0.5 Thou/mm3 (0.0-0.5); Eosinophils % (Auto) 7 % (0-10); Hematocrit 30.2 % (36.0-46.0); Hemoglobin 10.2 g/dL (12.0-16.0); Immature Granulocytes Auto 0.02 Thou/mm3 (0.00-0.00); Lymphocytes # (Auto) 1.0 Thou/mm3 (1.0-4.8); Lymphocytes % (Auto) 13 % (10-50); Mean Corpuscular HGB Conc 33.8 g/dl (31.0-37.0); Mean Corpuscular Hemoglobin 30.8 pg (25.0-35.0); Mean Corpuscular Volume 91 fL (80-100); Monocytes # (Auto) 1.4 Thou/mm3 (0.0-0.8); Monocytes % (Auto) 17 % (0-12); Neutrophils # (Auto) 5.1 Thou/mm3 (1.8-7.7); Neutrophils % (Auto) 63 % (37-80); Nucleated Red Blood Cell # 0.00 Thou/mm3 (0.00-0.00); Nucleated Red Blood Cell % 0 /100 WBC (0); Platelet Count 81 Thou/mm3 (140-440); RDW Standard Deviation 47.2 fL (36.4-46.3); Red Blood Count 3.31 Miln/mm3 (4.00-5.20); White Blood Count 8.1 Thou/mm3 (3.6-11.0)
[2025-07-15 05:43] VITALS: BMI 37.7
[2025-07-15 05:47] LABS: Alanine Aminotransferase 36 U/L (10-49); Albumin, Serum 3.2 gm/dL (3.4-4.8); Albumin/Globulin Ratio 1.1 (1.2-2.2); Alkaline Phosphatase 94 U/L (46-116); Anion Gap 11 (7-16); Aspartate Amino Transferase 40 U/L (0-34); BUN/Creatinine Ratio 23 Ratio (12-20); Bilirubin,Total 1.3 mg/dL (0.3-1.2); Blood Urea Nitrogen 23 mg/dL (9-23); Calcium 8.1 mg/dL (8.3-10.6); Calcium (Corrected) 8.7 mg/dL (8.5-10.1); Carbon Dioxide 22.6 mMol/L (20.0-31.0); Chloride 107 mMol/L (98-107); Creatinine (Component) 1.0 mg/dL (0.6-1.3); Estimated Creatinine Clearance 47.3 mL/min (>60); Globulin 3.0 gm/dL (2.3-3.5); Glucose 192 mg/dL (74-106); Magnesium 1.8 mg/dL (1.6-2.6); Osmolality,Calculated 289 (275-295); Phosphorous 2.9 mg/dL (2.4-5.1); Potassium 4.0 mMol/L (3.4-5.1); Sodium 141 mMol/L (136-145); Total Protein 6.2 gm/dL (5.7-8.2); eGFR 59 See Note
[2025-07-15] MEDS: INSULIN LISPRO (AdmeLOG) 1 UNIT/0.01 ML UNIT SC ×2 (06:05→11:37)
[2025-07-15] MEDS: Magnesium Sulfate 2 GM Ivpb 2 GM/50 ML BAG IV (06:06)
[2025-07-15 08:00] VITALS: BP 136/61; PULSE 71; PULSE 76; RESP 20; TEMP 36.4; O2SAT 96
[2025-07-15] MEDS: ASPIRIN EC 81 MG TABEC PO (08:27)
[2025-07-15] MEDS: cefTRIAXone/D5w 1gm IV premix 1 GM/50 ML BAG IV (08:27)
[2025-07-15] MEDS: CLOPIDOGREL BISULFATE 75 MG TABLET PO (08:27)
[2025-07-15 08:40] VITALS: BP 136/61; PULSE 71
[2025-07-15] MEDS: INSULIN DEGLUDEC 5 UNIT/0.05 ML (PER 5 UNITS) 15 UNIT SC (08:40)
[2025-07-15] MEDS: FUROSEMIDE INJ 10 MG/ML 4ML VIAL 40 MG IVP (08:40)
[2025-07-15 08:42] VITALS: BP 136/61; PULSE 71
[2025-07-15] MEDS: LOSARTAN POTASSIUM 25 MG TABLET PO (08:42)
--- NOTE | 2025-07-15 09:57 | PD.RESDS ---
Planned Discharge Date 07/15/25 DS: Providers Provider Date of admission: 07/11/25 11:11 Primary care physician: Kerrie Ndiaye MD Admitting Provider: Vernon Shepherd MD Attending Provider on Admission: Vernon Shepherd MD Consults: 07/11/25 09:30 Consult to Gastroenterology Stat Comment: Consulting Provider: Kerrie Ndiaye 07/13/25 13:49 Referral Physical Therapy Routine Comment: Physician Instructions: Attending Provider on DC: Zaynab Jensen MD Discharging Provider: Laurence Guerrero DO Anticipated date of discharge: 07/15/25 DS: Diagnosis Problem List Completed Was Problem List Reviewed/Reconciled?: Yes Hospital Course Hospital Course Hospital course: 75-year-old female with a past medical history of coronary artery disease status post percutaneous coronary intervention, insulin-dependent diabetes, liver cirrhosis, hyperlipidemia, chronic constipation, and grade III esophageal varices presented with coffee-ground emesis and altered mental status, likely secondary to upper GI bleeding from her varices. Given her history of liver cirrhosis and known grade III esophageal varices, she was at high risk for bleeding. She was managed with Octreotide drip for bleeding control, IV Pantoprazole for acid suppression, and Lactulose to address hepatic encephalopathy. She received 2 units of pRBC transfusion due to acute blood loss anemia. Her ammonia levels, initially elevated, improved with Lactulose therapy, and her mentation returned to baseline. Her blood glucose was managed with insulin degludec and insulin sliding scale. An EGD on 07/13 confirmed ongoing grade III varices, which were successfully banded. Her chronic constipation was addressed by adjusting her lactulose regimen. She had a bowel movement prior to discharge. Physical therapy evaluated her and cleared her for ambulation. The patient remained stable throughout her hospital stay. Patient is medically and physically stable for discharge. Diagnosis: #Upper GI bleed secondary to esophageal varices (Grade III) #Acute blood loss anemia #Hepatic encephalopathy, resolved #Insulin-dependent type 2 diabetes, currently managed #Chronic constipation Discharge Plan: Follow up with primary care physician within 1 week of discharge. Follow up with [employer] Dr. Ndiaye in 2 weeks for continued banding of esophageal varices. Instructions have been explained to the patient and or family member with regards to their medications and how to take them. Patient/family was able to explain back to physician and nursing staff how to take their medications. Patient expressed understanding with instructions. New Medications: You have been prescribed Lactulose 20mg TID or until you have 2-3 bowel movements per day to prevent ammonia accumulation Continue to take the rest of your medications as prescribed by your primary care physician. Patient has been explained that should any symptoms recur or worsen patient is instructed to return to the Emergency Department. --- Case discussed with my attending Dr. Jensen. Laurence Guerrero DO PGY-1 Status at Discharge Overall status at discharge: patient is back to baseline Time Spent with Patient Time attestation: Total time spent providing and/or coordinating discharge services: 36 minutes Time spent: Greater than 30 minutes Exam Vital Signs Temp Pulse Resp BP Pulse Ox O2 Del Method O2 Flow Rate 97.6 F 71 20 136/61 H 96 Room Air 2 07/15/25 08:00 07/15/25 08:42 07/15/25 08:00 07/15/25 08:42 07/15/25 08:00 07/15/25 08:00 07/14/25 04:00 Narrative Exam Physical Exam General: Awake and alert, no acute distress. Obese habitus. HEENT: Normocephalic, atraumatic, mucous membranes moist. Heart: Regular rate and rhythm, no murmurs. Non-labored respirations, symmetric chest rise, no use of accessory muscles. Lungs: Clear to auscultation with no wheezing or crackles. Abdomen: Soft, nondistended, nontender. No guarding or rebound tenderness. Neurologic: No gross neurological deficit, and patient able to move all 4 extremities. Extremities: No edema. Skin: No rash or ecchymoses. Psychiatric: Cooperative, appropriate mood and affect. Discharge Plan Plan Patient Disposition: HOME (Self Care) Care Plan Goals: Follow up with primary care physician within 1 week of discharge Follow up with [employer] Dr. Ndiaye in 2 weeks for continued banding of esophageal varices Instructions have been explained to the patient and or family member with regards to their medications and how to take them. Patient/family was able to explain back to physician and nursing staff how to take their medications. Patient expressed understanding with instructions. New Medications: You have been prescribed Lactulose 20mg TID or until you have 2-3 bowel movements per day to prevent ammonia accumulation Continue to take the rest of your medications as prescribed by your primary care physician. Patient has been explained that should any symptoms recur or worsen patient is instructed to return to the Emergency Department. Prescriptions/Referrals Prescriptions/Med Rec: New lactulose 10 gram/15 mL solution 20 g PO TID Qty: 3785 0RF Rx Instructions: Please take until 2-3 bowel movements per day Continued metformin 500 mg tablet 500 mg PO BID Patient Comments: TAKE 1 TABLET BY MOUTH TWICE A DAY metoclopramide HCl 5 mg tablet 5 mg PO Q8H Patient Comments: TAKE 1 TABLET BY MOUTH BEFORE MEALS AND AT BEDTIME insulin glargine [Lantus Solostar U-100 Insulin] 100 unit/mL (3 mL) insulin pen 65 unit SUBCUT HS Patient Comments: INJECT 65 UNITS SUBCUTANEOUSLY IN THE MORNING AND 55 UNITS SUBCUTANEOUSLY AT BEDTIME omeprazole 40 mg capsule,delayed release(DR/EC) 40 mg PO QDAY Patient Comments: TAKE 1 CAPSULE BY MOUTH EVERY DAY isosorbide mononitrate 30 mg tablet extended release 24 hr 15 mg PO QDAY Patient Comments: take half a tablet multivitamin [Daily Multi-Vitamin] Tablet 1 tab PO QAM furosemide [Lasix] 20 mg tablet 20 mg PO BID losartan 50 mg tablet 25 mg PO QDAY Patient Comments: TAKE 1/2 TABLET BY MOUTH EVERY DAY FOR 90 days aspirin 81 mg tablet,delayed release (DR/EC) 81 mg PO QDAY Patient Comments: TAKE 1 TABLET BY MOUTH EVERY DAY FOR 90 DAYS clopidogrel 75 mg tablet 75 mg PO QDAY Patient Comments: TAKE 1 TABLET BY MOUTH EVERY DAY FOR 90 DAYS potassium chloride 10 mEq tablet extended release 10 meq PO QDAY spironolactone 25 mg tablet 25 mg PO BID atorvastatin 40 mg tablet 40 mg PO HS bisacodyl 5 mg tablet,delayed release (DR/EC) 5 mg PO BID Patient Comments: TAKE 1 TABLET BY MOUTH TWICE A DAY ferrous sulfate [Feosol] 325 mg (65 mg iron) tablet 325 mg PO Q OTHER DAY Discontinued simvastatin 40 mg tablet 20 mg PO HS Patient Comments: TAKE 1 TABLET BY MOUTH EVERY DAY Referrals: Kerrie Ndiaye MD [Primary Care Provider, Gastroenterology] Patient/Caregiver Discharge Instructions Education Materials: Bleeding Gastrointestinal, Esophageal Varices Print Language: English Stand Alone Forms: Sheryl Award Info., Patient Portal Info Letter Discharge Order Discharge Orders: Discharge (Routine); Ordered 07/15/25 Ordered By: Earnest Pleitez Quality Discharge Quality Measures VTE prophylaxis MD Attestestation MD Attestation I have seen and examined the patient. I was physically present for the colvin portions of the services provided including history, physical exam, diagnosis, treatment plans and orders. I agree with assessment and plan of care as documented by residents. Even though this this note was carefully revised there may still be minor errors in air deodorizer servicer due to voice recognition software. Zaynab Jensen MD
[2025-07-15 12:00] VITALS: BP 121/65; PULSE 70; RESP 19; TEMP 36.6; O2SAT 97
[2025-07-15] MEDS: LACTULOSE SYRUP 20 GM/30 ML UDC 30 GM PO (14:48)
--- NOTE | 2025-07-15 22:06 | ESPR_ITS ---
Documentation for date of: 07/15/25 Subjective Subjective Interval history: Late entry for the note Case discussed with the internal medicine team Okay to discharge patient home as a hemoglobin hematocrit stable at 10.2 and 30.2 I will see the patient in follow-up next week Exam Vital Signs Temp Pulse Resp BP Pulse Ox O2 Del Method O2 Flow Rate 97.8 F 70 19 121/65 97 Room Air 2 07/15/25 12:00 07/15/25 12:00 07/15/25 12:00 07/15/25 12:00 07/15/25 12:00 07/15/25 12:00 07/14/25 04:00 Objective Labs 07/15/25 04:32 07/15/25 04:32 Labs: Laboratory Results - last 24 hr 07/15/25 04:32 WBC 8.1 RBC 3.31 L Hgb 10.2 L Hct 30.2 L MCV 91 MCH 30.8 MCHC 33.8 RDW Std Deviation 47.2 H Plt Count 81 L Neut % (Auto) 63 Lymph % (Auto) 13 [place] % (Auto) 17 H Eos % (Auto) 7 Baso % (Auto) 0 Neut # (Auto) 5.1 Lymph # (Auto) 1.0 [place] # (Auto) 1.4 H Eos # (Auto) 0.5 Baso # (Auto) 0.0 Immature Gran # (Auto) 0.02 H Absolute Nucleated RBC 0.00 Immature Gran % 0 Nucleated RBC % 0 Sodium 141 Potassium 4.0 Chloride 107 Carbon Dioxide 22.6 Anion Gap 11 BUN 23 Creatinine 1.0 Estim Creat Clear Calc 47.3 L eGFR 59 L BUN/Creatinine Ratio 23 H Glucose 192 H Calculated Osmolality 289 Calcium 8.1 L Corrected Calcium 8.7 Phosphorus 2.9 Magnesium 1.8 Total Bilirubin 1.3 H AST 40 H ALT 36 Alkaline Phosphatase 94 Total Protein 6.2 Albumin 3.2 L Globulin 3.0 Albumin/Globulin Ratio 1.1 L Impressions Impression: Esophageal variceal bleeding status post band ligation Advanced portal hypertension 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
== END 2025-07-15 15:07 | disposition home or self-care (01) | DRG 432 ==
LOC: SERX 09:45 → SERHOLD 11:33 → S2NX 18:03
PROVIDERS: Physician Assistant; Student in an Organized Health Care Education/Training Program; Admitting Provider Internal Medicine; Emergency Provider Family Medicine; PCP Specialist; Visit Provider Internal Medicine
PROC: 06L38CZ Occlusion of Esophageal Vein with Extraluminal Device, Via Natural or Artificial Opening Endoscopic (ICD-10-PCS; CPT 43239; principal; 2025-07-12 15:15)
DX: K70.30 Alcoholic cirrhosis of liver without ascites (principal); I85.11 Secondary esophageal varices with bleeding; D62 Acute posthemorrhagic anemia; K76.6 Portal hypertension; E11.9 Type 2 diabetes mellitus without complications; K76.82 Hepatic encephalopathy; E78.5 Hyperlipidemia, unspecified; I10 Essential (primary) hypertension; Z79.02 Long term (current) use of antithrombotics/antiplatelets; K59.09 Other constipation; Z79.4 Long term (current) use of insulin; Z79.82 Long term (current) use of aspirin; Z79.84 Long term (current) use of oral hypoglycemic drugs; Z79.899 Other long term (current) drug therapy; Z95.5 Presence of coronary angioplasty implant and graft
CPT/HCPCS: 36415; 71045; 80053; 80074; 81001; 82140; 83735; 84100; 85014; 85018; 85025; 85610; 85730; 86850; 86900; 86901; 86923; 93005; 96361; 96374; 96375; 97162; 99285; A4649; J0696; J1200; J1815; J1938; J2250; J2354; J2405; J2470; J3010; J3475; J7030; J7050; P9016; A9270